=== PATIENT | female | born 1995 | race Two or more races ===

== ENCOUNTER 2022-10-03 12:53 | Outpatient (CLI) | payer OTHER, SELFPAY ==
--- NOTE | 2022-10-03 13:00 | CRLHL7_ITS ---
For Patients: As a result of the Century Cures Act, medical imaging exams and procedure reports are released immediately into your electronic medical record. You may view this report before your referring provider. If you have questions, please contact your health care provider. INDICATION: Evaluate anatomy. COMPARISON: none TECHNIQUE: Real time serna scale imaging of the fetus was performed as well as color Doppler analysis of the umbilical vessels. FINDINGS: Sonographic imaging demonstrates a single living intrauterine gestation. Fetus demonstrates a regular cardiac rate of 145 beats per minute. Fetus has a vertex position. The placenta lies posteriorly without evidence of placenta previa. The edge of the placenta is located 5.2 cm from the edge of the internal cervical os. Amniotic fluid volume appears normal. Single deepest vertical pocket: 4 point cm. The cervix is closed and measures 3.1 cm in length. The composite ultrasound gestational age is calculated at 22 weeks 1 day with an estimated sonographic due date of 02/05/2023. The estimated weight is 478 grams which lies at the 86th %. The following biometric measurements were obtained: Biparietal diameter: 5.1 cm/21 weeks 3 days 54th% Head circumference: 19.0 cm/21 weeks 2 days 39th% Abdominal circumference: 17.4 cm/22 weeks 3 days 77th% Femur length: 3.8 cm/22 weeks 1 day 71st% The HC/AC ratio measures: 1.09 range (1.05-1.23) On anatomic survey, there is a normal appearance of the cerebral ventricles, cavum septi pellucidi, cisterna magna and cerebellum. The nose, lips, and facial profile appear normal. The cervical, thoracic and lumbar spine are well visualized and appear normal. There is a normal four-chamber heart view and the left and right ventricular outflow tracts appear normal. The diaphragm and stomach appear normal. The kidneys and bladder also appear normal. There is a normal three-vessel cord and cord insertion site. The four extremities appear normal. IMPRESSION: Normal OB ultrasound exam with concordance of clinical and sonographic dating. No intrinsic abnormalities noted on anatomic survey. Dictated by Praneeth Miller MD @ 10/04/2022 12:23:35 PM (Electronically Signed)
== END 2022-10-03 12:54 | disposition home or self-care (01) ==
LOC: US 12:53
PROVIDERS: PCP Physician Assistant; Visit Provider Registered Nurse
DX: Z34.92 Encounter for supervision of normal pregnancy, unspecified, second trimester (principal); Z3A.22 22 weeks gestation of pregnancy
CPT/HCPCS: 76805

== ENCOUNTER 2022-10-25 11:32 | Outpatient (CLI) | payer OTHER, SELFPAY ==
[2022-10-25 19:00] LABS: Chlamydia DNA Amplified* NOT DETECTED (No Detected); GC DNA Amplified* NOT DETECTED (No Detected)
== END 2022-10-25 11:33 | disposition home or self-care (01) ==
LOC: NFLDREF 11:32
PROVIDERS: PCP Physician Assistant; Visit Provider Obstetrics & Gynecology
DX: Z34.92 Encounter for supervision of normal pregnancy, unspecified, second trimester (principal); Z3A.24 24 weeks gestation of pregnancy
CPT/HCPCS: 0353U; 87491; 87591

== ENCOUNTER 2022-11-22 11:05 | Outpatient (CLI) | payer OTHER, SELFPAY | END 2022-11-22 11:06 | disposition home or self-care (01) | LOC: NFLDREF 11-24 09:16 | PROVIDERS: PCP Physician Assistant; Referring Provider Physician Assistant; Visit Provider Obstetrics & Gynecology | DX: Z34.90 Encounter for supervision of normal pregnancy, unspecified, unspecified trimester (principal) | CPT/HCPCS: 86592 ==

== ENCOUNTER 2023-01-17 11:05 | Outpatient (CLI) | payer OTHER, SELFPAY | END 2023-01-17 11:06 | disposition home or self-care (01) | PROVIDERS: PCP Physician Assistant; Referring Provider Physician Assistant; Visit Provider Obstetrics & Gynecology | DX: Z34.93 Encounter for supervision of normal pregnancy, unspecified, third trimester (principal); Z3A.36 36 weeks gestation of pregnancy | CPT/HCPCS: 87081; 87653 ==

== ENCOUNTER 2023-02-03 14:53 | Outpatient (CLI) | payer OTHER, SELFPAY ==
[2023-02-03 15:04] VITALS: PULSE 69; O2SAT 98
[2023-02-03 15:05] VITALS: TEMP 36.8
[2023-02-03 15:06] VITALS: BP 107/57; PULSE 73
--- NOTE | 2023-02-03 16:26 | PC.OBNST ---
NST Note NST Note Start: 02/03/23 15:15 Freq: ONCE Status: Active Protocol: Document 02/03/23 16:24 MOSQUE (Rec: 02/03/23 16:25 MOSQUE [id number]) NST Note 4 Para (# of births) 1 EDC 02/11/23 Gestational Age In Weeks & Days 38 Weeks & 6 Days Patient Presented with Complaint(s) of Decreased movement Reactive Yes Appropriate for Gestational Age Yes ALONDRA Esteves Date 02/03/23 Reactive Yes Appropriate for Gestational Age Yes ALONDRA Gallardo Date 02/03/23 OB NST charge Yes Complete NST Note via Write Note Yes The provider's electronic signature indicates the NST is reactive/appropriate for gestational age. *Note to provider: If an addendum is required, open the patient's chart and click on the note under the Nurse/Allied Health tab.
== END 2023-02-03 16:00 | disposition home or self-care (01) ==
LOC: OB OUT 14:53 → OB 14:54
PROVIDERS: PCP Physician Assistant; Visit Provider Obstetrics & Gynecology
DX: O36.8130 Decreased fetal movements, third trimester, not applicable or unspecified (principal); Z3A.38 38 weeks gestation of pregnancy
CPT/HCPCS: 59025; 99213

== ENCOUNTER 2023-02-15 07:15 | Inpatient (IN) | payer OTHER, SELFPAY ==
[2023-02-15] VITALS (102 sets, daily range): BP systolic 92–179; BP diastolic 53–123; PULSE 61–142; RESP 16–18; TEMP 36.6–39.2; O2SAT 91–100; BMI 31.4
--- NOTE | 2023-02-15 08:38 | P.LDBA_ITS ---
Subjective History of Present Illness Time Seen by Provider: 08:10 Date Seen: 02/15/23 Narrative: HPI: Monica is a 28-year-old 4 para 1021 at 40 and 4/7weeks gestation being admitted for elective induction of labor. Her admission history and physical was completed by Nisha Jeffrey MD on 01/24/2023. Her course has been uncomplicated. Her membranes are not ruptured. She reports sporadic contractions. The baby has has been moving normally. OB PROBLEM LIST: G 4 P 1021 FOB: Chase (his first child). Son: Neftali (sp?). Baby: Girl! 1. Transfer of care at 20 weeks. Awaiting previous delivery note from Gena. Possible h/o elevated BP following delivery. * ASA if h/o PP HTN. 2. H/o depression and PP depression. Seeing therapist monthly. Not taking meds. Feels she is doing well. 3. Rubella non immune. Rec. PP vaccine. 4. GBS+ - ampicillin for prophylaxis Flu: Patient believes she completed this COVID: Completed, not boosted. Recommended booster ED visit 06-29-22 d/t vaginal bleeding with clots and low pelvic pain at 7w4d: US: single IUP. FHR 147bpm. ED visit 08-07-22 d/t vaginal bleeding at 13w: single live IUP. Rh positive ED visit 08-16 d/t vaginal bleeding at 14w3d: viable with FHR 162bpm. Bacteruria. 08/07/2021 Blood type A positive Antibody screen negative Rubella 0.4 nonimmune RPR nonreactive HBsAg negative HIV negative Urine culture: 07/14/2022 with E coli, 08/16/2022 Streptococcus agalactiae 1000- 17982 CFU per mil, susceptibilities not performed Chlamydia and gonorrhea 10/25/22 neg/neg Post- Varicella [] Pap smear06/14/2020: NIL, negative HPV 07/14/2022 Platelets 255 Hepatitis C negative 08/16/2022 Hemoglobin 13.3 06/26/2022 obstetric ultrasound: Single, viable, intrauterine gestation with an KUSHAL of 02/07/2023. heart rate 175 beats per minute. TDAP- 12/06/22 OBJECTIVE: GENERAL: Pleasant, well groomed woman in no acute distress. VITAL SIGNS: Per electronic medical record: They are normal. HEART: Regular rate and rhythm without gallop, rub or murmur. CHEST: Clear to auscultation bilaterally. ABDOMEN: Gravid, nontender. EFM: Baseline 120-130, accelerations: Present, decelerations: Absent, moderate variability, reactive. Category 1 TOCO: Q 2-5 minutes, the patient is not feeling them. SVE: Deferred until AROM EXTREMITIES: No edema, cyanosis, clubbing or pain. ASSESSMENT: 28-year-old 4 para 1021 at 40 and 4/7 weeks gestation admitted for elective induction of labor. PLAN: 1. Start Pitocin per induction protocol 2. AROM2-4 hours after start of 1st ampicillin does for GBS positive status 3. GBS positive 4. Planning epidural for labor analgesia 5. Rh positive OB Exam Physical Exam Vital signs: Temp Pulse Resp BP Pulse Ox 98.8 F 71 16 114/75 98 02/15/23 07:42 02/15/23 07:42 02/15/23 07:42 02/15/23 07:42 02/15/23 07:53
[2023-02-15] MEDS: LACTATED RINGERS 1000 ML 1,000 ML 125 ML IV ×2 (08:57→16:23)
[2023-02-15] MEDS: AMPICILLIN 2 GM in 0.9 % SODIUM CHLORIDE Mini-bag 100 ML IVPB (08:58)
[2023-02-15] MEDS: OXYTOCIN 30 unit/500 ML in NS 30 UNIT/500 ML BAG IVPB (08:59)
--- NOTE | 2023-02-15 13:01 | P.OBPN_ITS ---
Subjective Time Seen by Provider: 12:45 Date Seen: 02/15/23 Narrative: Subjective: Patient states the contractions are getting stronger but not unmanageable. Pitocin: 6 milliunits/minute. Verbal consent obtained to perform AROM Vital signs: Per electronic medical record. EFM: [id number], + accelerations, 1 early deceleration after AROM, Moderate variability, reactive. Category to. [place]: Contractions every 2-5 minutes. SVE: 2 cm/80 %/-1. AROM: Small amount of clear fluid. Assessment: 28-year-old 4 para 1021 at 40 weeks 4 days gestation undergoing induction of labor. Plan: 1. Continue Pitocin per labor induction protocol. 2. Planning epidural for labor analgesia Objective Vital Signs: Last Vital Signs Temp 99.0 F 02/15/23 10:24 Pulse 85 02/15/23 11:46 Resp 16 02/15/23 10:24 BP 104/59 L 02/15/23 11:46 Pulse Ox 98 02/15/23 07:53
[2023-02-15] MEDS: AMPICILLIN 1 GM in 0.9 % SODIUM CHLORIDE Mini-bag 100 ML IVPB ×2 (13:05→17:15)
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
[2023-02-15] MEDS: ROPIVACAINE 0.2% 100 ml 100 ML 12 MG EPIDURAL (13:50)
[2023-02-15] MEDS: miSOPROStoL 800 MCG/4 TABLET PR (21:07)
[2023-02-15] MEDS: METHYLERGONOVINE MALEATE 0.2 MG/ML INJ IM (21:09)
[2023-02-15] MEDS: TRANEXAMIC ACID 100 MG/ML INJ 1000 MG IV (21:13)
[2023-02-15] MEDS: ONDANSETRON 2 MG/ML inj 4 MG IV (21:15)
[2023-02-15] MEDS: CEFAZOLIN 2 GM INJ IVP (21:32)
--- NOTE | 2023-02-15 21:43 | W.PM.VAGDEL1 ---
Procedure Delivery date: 02/15/23 Procedure Done: Global Procedure Details: Monica is a 21 seconds year-old G 4 P 1021 now to admitted on 02/15/2023 at 7:30 a.m. at 40 Weeks, 4 Days gestation for elective induction of labor. AROM occurred at 12:40 p.m. on 02/15/2023 with small amount of clear fluid fluid. Labor Analgesia: Epidural Pitocin: Yes Labor onset: 02/15/2023 at 1:40 p.m.. Complete: 02/15/2023 at 8:24 p.m.. Pushin02/15/2023 at 8:30 p.m. heart tones during second stage were: Category 2, reassuring with variable and early decelerations with contractions, moderate variability between contractions. At 8:50 p.m. a viable female infant delivered in vertex direct OA presentation over first-degree bilateral periurethral lacerations via spontaneous vaginal delivery. The infant was placed on maternal abdomen. Cord was clamped and cut after a 60+ second delay. Nose and mouth were bulb suctioned. weight pending. 8 at 1 minute and 8 at 5 minutes. Shoulder dystocia: No. Nuchal cord: Yes: Single nuchal cord easily reduced at the perineum prior to delivery of the 's shoulders. Placenta delivered spontaneously and complete at 9:03 p.m. with a 3 vessel cord. Laceration(s): Bilateral first-degree periurethral. Repaired using 4-0 Vicryl suture in a running manner. Blood loss: 325 mL. Blood loss measurement type: Quantitative Sponge and needles counts are correct. Specimen: None was stable after delivery. After delivery there was noted to be lower uterine segment atony treated with bimanual uterine massage, 30 units Pitocin in 500 mL IV fluid wide open, 800 mg Cytotec [place], Methergine 0.2 mg IM x1, TXA 1 g IV x1. She complained of feeling very cold and had a temperature orally of 100.6? F. She received 2 g IV Ancef x1 and 1000 mg Tylenol p.o.. The automatic blood pressure cuff was not accurately measuring the patient's blood pressure due to the patient shaking post delivery. Manual blood pressures were taken and were consistent with severe range preeclampsia x3. Labetalol per protocol for hypertension treatment and magnesium 4 g IV load, 2 g IV/hour were ordered. Serum preeclampsia labs were ordered stat: CBC, AST, ALT, creatinine, BUN, INR, PTT and fibrinogen. Another set of labs were ordered for tomorrow morning at 5:00 a.m.: CBC, AST, ALT, creatinine, BUN. Repeat temperature 2 hrs after delivery: 100.1? F. The patient declined taking Tylenol so her temperature decreased without medication. Infant's name: Pending The patient is planning on breast feeding. Events: Pre-Eclampsia (Severe: Immediately by BP criteria.) Intrapartal Events: Labor Induction Delivery monitor: external FHT and internal uterine Route of delivery: Laceration description: Periurethral - 1st Degree Delivery repair: Vicryl Estimated blood loss (mL): 325 Anesthesia type: Epidural
[2023-02-15] MEDS: LABETALOL HCL 5 MG/ML inj IVP (21:50)
[2023-02-15] MEDS: MAGNESIUM IV 4 GM/100 ML PIGGYBACK IVPB (21:54)
[2023-02-15] MEDS: ACETAMINOPHEN 500 MG TABLET 1000 MG PO (22:03)
[2023-02-15 22:05] LABS: Creatinine* 0.5 mg/dL (0.5-1.5); Est. Creatinine Clearance* 127.53; Estimated Glomerular Filt Rate 132 ml/min; INR 0.94 (0.91-1.10); Prothrombin Time 13.2 Seconds
[2023-02-15 22:06] LABS: Alanine Aminotransferase* 14 U/L (4-35); Aspartate Amino Transferase* 22 U/L (12-35); Blood Urea Nitrogen* 7 mg/dL (5-24); Hematocrit 38.1 % (33.0-51.0); Hemoglobin* 12.7 gm/dL (12.0-16.0); Mean Corpuscular HGB Conc 33 gm/dL (32-36); Mean Corpuscular Hemoglobin 29 pg (26-34); Mean Corpuscular Volume 86 fL (80-100); Partial Thromboplastin Time* 28 Seconds (23-33); Platelet Count* 243 K/uL (140-440); Red Blood Count 4.43 m/uL (4.00-5.20); Slide Review Reflex No; White Blood Count* 15.35 K/uL (4.50-11.00)
[2023-02-15 22:07] LABS: Fibrinogen* 484 mg/dL (200-450)
[2023-02-15] MEDS: PIPERACILLIN/TAZOBACTAM 3.375 GM in 0.9 % SODIUM CHLORIDE Mini-bag 100 ML IVPB (22:41)
[2023-02-15] MEDS: LACTATED RINGERS 1000 ML 1,000 ML 50 ML IV (22:45)
[2023-02-16] VITALS (15 sets, daily range): BP systolic 86–118; BP diastolic 51–76; PULSE 62–88; RESP 16–18; TEMP 36.6–38.8; O2SAT 97–99
[2023-02-16 00:01] LABS: Creatinine Urine 63.5 mg/dL; Total Protein Urine 29 mg/dL
[2023-02-16] MEDS: PIPERACILLIN/TAZOBACTAM 3.375 GM in 0.9 % SODIUM CHLORIDE Mini-bag 100 ML IVPB ×4 (04:24→22:44)
[2023-02-16] MEDS: IBUPROFEN 600 MG TABLET PO ×3 (04:30→22:45)
[2023-02-16 05:15] LABS: Basophils Percent Auto 0.1 % (0.0-3.0); Eosinophils Percent Auto 0.1 % (0.0-7.0); Hematocrit 32.7 % (33.0-51.0); Hemoglobin* 11.1 gm/dL (12.0-16.0); Immature Granulocytes Pct Auto 0.2 %; Lymphocytes Percent Auto 10.1 % (20-44); Mean Corpuscular HGB Conc 34 gm/dL (32-36); Mean Corpuscular Hemoglobin 29 pg (26-34); Mean Corpuscular Volume 85 fL (80-100); Monocytes Percent Auto 4.9 % (0.0-11.0); Neutrophils Percent Auto 84.6 % (42.0-72.0); Platelet Count* 208 K/uL (140-440); RDW Coefficient of Variation % 13.8 % (11.5-15.5); Red Blood Count 3.87 m/uL (4.00-5.20); White Blood Count* 16.85 K/uL (4.50-11.00)
[2023-02-16 05:18] LABS: Slide Review Reflex No
[2023-02-16 05:30] LABS: Alanine Aminotransferase* 13 U/L (4-35); Aspartate Amino Transferase* 22 U/L (12-35); Blood Urea Nitrogen* 3 mg/dL (5-24); Creatinine* 0.4 mg/dL (0.5-1.5); Est. Creatinine Clearance* 159.42; Estimated Glomerular Filt Rate 139 ml/min
--- NOTE | 2023-02-16 07:52 | P.OBPN_ITS ---
OB - PN:Subj Subjective Time Seen by Provider: 07:30 Date Seen: 02/16/23 Narrative: Overnight patient had complains of feeling unwell, chills, and headache but has improved since her fever broke. Her pain is well controlled on oral pain medications. She is tolerating a regular diet. She has passed flatus. She is ambulating without difficulty. Lochia is scant. Urine output adequate. Patient denies chest pain, SOB, n/v, RUQ pain, vision changes, dizziness. OB - PN: Obj Exam Physical Exam: Vital signs: Temp Pulse Resp BP Pulse Ox O2 Del Method 98.1 F 62 16 97/62 98 Room Air 02/16/23 07:15 02/16/23 07:15 02/16/23 07:15 02/16/23 07:15 02/16/23 07:15 02/16/23 07:15 Narrative: Physical exam: General: No acute distress Psych: Alert and oriented x3, full affect HEENT: Normocephalic, atraumatic Heart: Regular rate and rhythm, no murmur rub or gallop Lungs: Clear to auscultation bilaterally Abdomen: Normoactive bowel sounds, soft, no tenderness, rebound, or guarding. Uterus firm at 2 cm below umbilicus. No fundal tenderness Skin: No lesions or rashes Lower extremities: No edema or erythema Pelvic exam: Scant lochia on pad OB - PN: Obj Data Labs Labs: Laboratory Results - last 24 hr 02/15/23 02/15/23 02/16/23 21:45 23:46 05:05 WBC 15.35 H 16.85 H RBC 4.43 3.87 L Hgb 12.7 11.1 L Hct 38.1 32.7 L MCV 86 85 MCH 29 29 MCHC 33 34 RDW Coeff of Kadeem 13.8 Plt Count 243 208 Neut % (Auto) 84.6 H Lymph % (Auto) 10.1 L [place] % (Auto) 4.9 Eos % (Auto) 0.1 Baso % (Auto) 0.1 Neut # (Auto) 14.30 H Lymph # (Auto) 1.70 [place] # (Auto) 0.80 Eos # (Auto) 0.00 Baso # (Auto) 0.00 Abs Immat Gran (auto) 0.00 Imm/Tot Granulo (auto) 0.2 INR 0.94 APTT 28 Fibrinogen 484 H BUN 7 3 L Creatinine 0.5 0.4 L Estimated Creat Clear 127.53 159.42 Estimated GFR 132 139 AST 22 22 ALT 14 13 Urine Creatinine 63.5 Protein/Creatinin Ratio 0.40 H Urine Total Protein 29 OB - PN: A/P Delivery Assessment and Plan (1) (normal spontaneous vaginal delivery): Status: Acute Assessment and Plan: - Complicated by lower uterine segment atony treated with bimanual massage, 30 u of Pitocin, 800 mcg misoprostol [place], Methergine 0.2 mg IM x1, TXA 1 g IV x1 - QBL 325 cc - Hgb: 12.7 --> 11.1 - VSS (2) Severe preeclampsia: Problem details: By BP criteria. Immediately Status: Acute Assessment and Plan: Pre-Eclampsia with severe feature ? Based on severe ranging blood pressures requiring IV antihypertensive im mediately ? BPs overnight: 90-120s/50-70s ? Symptoms: reports headaches that's improved with Tylenol. Denies visual disturbances, shortness of breath or abdominal pain ? Magnesium: on Magnesium for seizure ppx. Will continue for 24 hours after diagnoses ? IV/PO antihypertensives: currently unindicated ? Pre-eclampsia labs on 02/16/2023: Hgb 11.1 Plt 208 Cr 0.4 ALT 13 AST 22 ? UOP: 2.18 mL/kg/hr (3) Chorioamnionitis: Status: Acute Assessment and Plan: - Patient with chills and fevers - Tmax 102.6, Tlast 100.8 @ 0100 - Other VSS - She received 2g of Ancef when she initially fevered and subsequently was placed on zosyn after her fever kept rising - Discussed with patient that we care treating her for an intrauterine infection. High fever could also be attributed to medication side effect such as the misoprostol that she received. However, it's safest for her get adequate and appropriate antibiotics. - Plan for Abx for 24 hours afebrile
[2023-02-16] MEDS: MEASLES,MUMPS,RUBELLA VACC/PF 1 DOSE INJ 1 EACH SUBCUT (10:20)
[2023-02-16] MEDS: LACTATED RINGERS 1000 ML 1,000 ML 75 ML IV (11:40)
[2023-02-16] MEDS: ACETAMINOPHEN 500 MG TABLET 1000 MG PO (16:08)
[2023-02-17 03:17] VITALS: BP 109/67; PULSE 67; RESP 16; TEMP 36.8; O2SAT 98
[2023-02-17 06:15] VITALS: BP 125/80; PULSE 65; RESP 16; TEMP 37.1; O2SAT 98
[2023-02-17] MEDS: IBUPROFEN 600 MG TABLET PO (06:15)
[2023-02-17 07:08] LABS: Hematocrit 27.2 % (33.0-51.0); Mean Corpuscular HGB Conc 33 gm/dL (32-36); Mean Corpuscular Hemoglobin 29 pg (26-34); Mean Corpuscular Volume 87 fL (80-100); Platelet Count* 190 K/uL (140-440); Red Blood Count 3.13 m/uL (4.00-5.20); Slide Review Reflex No; White Blood Count* 7.57 K/uL (4.50-11.00)
[2023-02-17 07:22] LABS: Creatinine* 0.5 mg/dL (0.5-1.5); Est. Creatinine Clearance* 127.53; Estimated Glomerular Filt Rate 132 ml/min
[2023-02-17 07:23] LABS: Alanine Aminotransferase* 11 U/L (4-35); Aspartate Amino Transferase* 18 U/L (12-35); Blood Urea Nitrogen* 7 mg/dL (5-24)
[2023-02-17 09:20] VITALS: BP 116/83; PULSE 65; RESP 16; TEMP 36.8; O2SAT 96
[2023-02-17] MEDS: ACETAMINOPHEN 500 MG TABLET 1000 MG PO (09:41)
--- NOTE | 2023-02-17 09:48 | P.DS_ITS ---
DS: Providers Provider Time Seen by Provider: 09:30 Date Seen: 02/17/23 Date of admission: 02/15/23 07:15 Primary care physician: Brian Markham PA-C Admitting Clinician: Mary Ellen Rolon MD Attending Physician on discharge: Shanon Herrera MD Date of Discharge: 02/17/23 DS: Diagnosis Discharge Diagnosis (1) Chorioamnionitis: Status: Acute (2) (normal spontaneous vaginal delivery): Status: Acute (3) Severe preeclampsia: Status: Acute Problem details: By BP criteria. Immediately (4) GERD (gastroesophageal reflux disease): Status: Acute Exam Narrative: Exam Narrative: VITAL SIGNS: As noted above. GENERAL APPEARANCE: Alert, cooperative female in no acute distress. MOOD & AFFECT: Normal. CHEST: CTAX2, RRR of heart ABDOMEN: Soft, non-distended and nontender. Well contracted uterus, no significant uterine tenderness. : Normal lochia, no malodorous discharge. EXTREMITIES: Nonedematous. Well perfused. Nontender. Const: Vital Signs, click to edit/add: Vital Signs - 24 hr 02/16/23 11:29 02/16/23 15:47 02/16/23 20:11 Temperature 98.4 F 98 F 98.4 F Pulse Rate [Pulse Oximeter] 65 66 69 Respiratory Rate 16 16 18 Blood Pressure [Le ft Arm] 108/64 102/62 116/70 Pulse Oximetry 97 98 98 Oxygen Delivery Me thod Room Air Room Air Room Air 02/16/23 22:46 02/17/23 03:17 02/17/23 06:15 Temperature 98.7 F 98.3 F 98.7 F Pulse Rate [Pulse Oximeter] 69 67 65 Respiratory Rate 16 16 16 Blood Pressure [Le ft Arm] 116/74 109/67 125/80 Pulse Oximetry 99 98 98 Oxygen Delivery Me thod Room Air Room Air Room Air 02/17/23 09:20 Temperature 98.3 F Pulse Rate [Pulse Oximeter] 65 Respiratory Rate 16 Blood Pressure [Le ft Arm] 116/83 Pulse Oximetry 96 Oxygen Delivery Me thod Room Air OB - DS: Summary Hospital Course Hospital Course: The patient is a 28 year old G 2 P 2002 at 40 4/7 weeks gestation that was admitted to the Center on 02/15/23 for elective IOL. She had an complicated vaginal delivery. She delivered a viable female . She is breast feeding. Delivery complicated by hemorrhage and the need for multiple uterotonics. Patient was also diagnosed with preeclampsia with severe features due to persistently severe range blood pressures needing IV antihypertensive medication. Patient received 24 hours of magnesium sulfate infusion for seizure prophylaxis. 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 also complicated by endometritis, treated with IV Zosyn, she has now been more than 24 hours afebrile. Labs repeated this morning were found consistent with anemia, but otherwise normal. Patient has requested discharge home today. Peripartum Data Infant delivery method: Vaginal Laceration description: Periurethral - 1st Degree complications: pelvic infection, uterine atony and other (Preeclampsia with severe features) [place] Infant Gender: Female Discharge Plan: Home Status at Discharge Functional status at discharge: independent ambulation Overall status at discharge: patient is progressing back to baseline Time Spent with Patient Time attestation: Total time spent providing and/or coordinating discharge services: Time spent: Less than 30 minutes Discharge Plan Discharge Disposition: Home, Self-Care Date of Admission: 02/15/23 07:15 Attending Provider on Discharge: Shanon Herrera Consulting Providers: Albania Cohen Primary Care Provider: Brian Markham Condition: Stable Anticipated Discharge Date/Time: 02/17/23 18:00 Discharge Medications: New ibuprofen 600 mg Tablet 600 mg PO Q6H PRNQty: 30 0RF ferrous sulfate 325 mg (65 mg iron) tablet 325 mg PO DAILY Qty: 30 0RF Discharge Orders: Discharge Order (Routine); Ordered 02/17/23 Ordered By: Shanon Herrera Patient Education: Preeclampsia and Eclampsia After Delivery (GEN), OB Over the Counter Medication Information, OB Vaginal/Bottle Feeding Additional Instructions: Monitor blood pressures at least twice a day, notify clinic if there are elevated blood pressures more than 140 systolic, 90 diastolics. Notify clinic if there is headaches that do not go away with Tylenol, visual changes or pain in the upper abdomen. Follow up in clinic on Sunday02/19/23 for a blood pressure check. A Clinic nurse will call you on Sunday to schedule an appt. Then, follow up in clinic for usual follow up in 2-6 weeks. Discharge instructions were reviewed with the patient including signs and symptoms of infection and home going medications Nothing vaginally for 6 weeks: no tampons or intercourse Do not drive while taking narcotic pain medication(s) Off Work or School for 8 weeks Symptoms to report to doctor: * Bleeding that saturates more than one pad per hour * Passing clots larger than the size of a golf ball * Pain not relieved by prescribed medication * Fever above 100.4 degrees Fahrenheit * A foul vaginal odor * Difficulty in emotions, mood, and functions * Thoughts of hurting yourself and/or * Painful, reddened area in your breast * Any drainage, redness, or tenderness in your IV/epidural site * Severe headache that doesn't improve after taking medications * Changes in vision, including temporary loss of vision, blurred vision, and/or light sensitivity * Upper abdominal pain (usually under ribs on the right side) * Decrease in urination or painful, frequent urinating * Chest pain * Shortness of breath * Tenderness or pain with redness and/swelling in the calf(s) of your leg Optional 2-week visit: discuss infant feeding concerns, review control options and screen for anxiety/depression. 6-week visit for an annual exam. consultation services are available to all mothers and babies for the first year after delivery.? To make an appointment, please call [phone]. Activity Level: Activity as Tolerated Activity Detail: Nothing vaginally for 6 weeks. Discharge Diet: Regular Follow Up Appointments: Brian Markham PA-C [Primary Care Provider] - Forms: [employer] Info Instructions
[2023-02-17 12:03] VITALS: BP 127/81; PULSE 68; RESP 16; TEMP 36.8; O2SAT 98
[2023-02-17 16:09] VITALS: BP 121/78; PULSE 64; RESP 16; TEMP 36.9; O2SAT 99
[2023-02-17 19:31] VITALS: BP 122/81; PULSE 64; RESP 18; TEMP 36.9; O2SAT 99
== END 2023-02-17 19:40 | disposition home or self-care (01) | DRG 560 ==
PROVIDERS: Obstetrics & Gynecology; Admitting Provider Obstetrics & Gynecology; PCP Physician Assistant; Visit Provider Obstetrics & Gynecology
DX: O99.824 Streptococcus B carrier state complicating childbirth (principal); O14.15 Severe pre-eclampsia, complicating the puerperium; O86.12 Endometritis following delivery; O72.1 Other immediate postpartum hemorrhage; O70.0 First degree perineal laceration during delivery; K21.9 Gastro-esophageal reflux disease without esophagitis; O90.81 Anemia of the puerperium; D62 Acute posthemorrhagic anemia; Z3A.40 40 weeks gestation of pregnancy; Z37.0 Single live birth
CPT/HCPCS: 01967; 36415; 59200; 82565; 82570; 84156; 84450; 84460; 84520; 85025; 85027; 85384; 85610; 85730; A9270; J0290; J0690; J2210; J2405; J2543; J2795; J3475; J7120; S0020

== ENCOUNTER 2023-03-02 15:02 | Outpatient (CLI) | payer OTHER, SELFPAY | END 2023-03-02 15:03 | disposition home or self-care (01) | LOC: NFLDREF 15:03 | PROVIDERS: PCP Physician Assistant; Visit Provider Registered Nurse | DX: Z39.2 Encounter for routine postpartum follow-up (principal) | CPT/HCPCS: 86787 ==

== ENCOUNTER 2024-04-21 09:01 | Outpatient (CLI) | payer MEDICAID, SELFPAY ==
--- OUTSIDE RECORDS SUMMARY | 2024-04-21 09:09 | XMS_ITS | Encounter Summary ---
Author Organization [facility] Address [address] [place] [address] Care Team Providers Care Track Oiler Name Role Phone Brian Markham P.A.-C. Primary Care Provider Encounter Details Date Type Department Care Team (Latest Contact Info) Description 01/23/2024 3:33 PM CDT - 01/23/2024 11:59 PM CDT Hospital Encounter Department of Laboratory Medicine in [place], [place] [address] [place] [address] Brian Markham P.A.-C. [address] [place] [phone] Screening For Venereal Disease Discharge Disposition: Home or Self Care Social History Tobacco Use Types Packs/Day Years Used Date Smoking Tobacco: Former Cigarettes Smokeless Tobacco: Never Alcohol Use Standard Drinks/Week Comments Not Currently 3 (1 standard drink = 0.6 oz pur e alcohol) drinks 3 days week [facility] Utilities Answer Date Recorded In the past 12 months has [employer], oil, or water [employer] threatened to shut off services in your home? No 11/15/2023 Humiliation, Afraid, Rape, and Kick questionnair e Answer Date Recorded Within the last year, have y ou been afraid of your partner or ex-partner? No 06/03/2022 Within the last year, have y ou been humiliated or emotionally abused in other ways by your partner or ex-partner? No Within the last year, have y ou been kicked, hit, slapped, or otherwise physically hurt by your partner or ex-partner? No 06/03/2022 Within the last year, have y ou been raped or forced to have any kind of sexual activity by your partner or ex-partner? No 06/03/2022 Social Connection and Isolat ion Panel [NHANES] Answer Date Recorded In a typical week, how many times do you talk on the phone with family, friends, or neighbors? More than three times a week 06/03/2022 How often do you get togethe r with friends or relatives? Once a week 06/03/2022 How often do you attend chur Diaferon or faith services? Never 06/03/2022 Do you belong to any clubs o r organizations such as samaritan groups, unions, fraternal or athletic groups, or school groups? No 06/03/2022 How often do you attend meet ings of the clubs or organizations you belong to? Never 06/03/2022 Are you , , di vorced, , never , or living with a partner? Never 06/03/2022 AUDIT-C Answer Date Recorded Q1: How often do you have a drink containing alc ohol? 2-4 times a month 06/03/2022 Q2: How many drinks containi ng alcohol do you have on a typical day when you are drinking? 3 or 4 06/03/2022 Q3: How often do you have si x or more drinks on one occasion? Never 06/03/2022 Overall Financial Resource Strain (CARDIA) Answe r Date Recorded How hard is it for you to pa y for the very basics like food, housing, medical care, and heating? Not very hard 06/03/2022 PHQ-2 Answer Date Recorded PHQ-2 Score 2 01/23/2024 [facility] - Occupational Stress Questionnaire Answer Date Recorded Do you feel stress - tense, restless, nervous, or anxious, or unable to sleep at night because your mind is troubled all the time - these days? Only a little 06/03/2022 Exercise Vital Sign Answer Date Recorde d On average, how many days pe r week do you engage in moderate to strenuous exercise (like a brisk walk)? 7 days 11/15/2023 On average, how many minutes do you engage in exercise at this level? 60 min 11/15/2023 Hunger Vital Sign Answer Date Recorded Within the past 12 months, y ou worried that your food would run out before you got the money to buy more. Never true 11/15/19 24 Within the past 12 months, t he food you bought just didn't last and you didn't have money to get more. Never true 11/15/2023 PRAPARE - Transportation Answer Date Re corded In the past 12 months, has l ack of transportation kept you from medical appointments or from getting medications? No 10/22 In the past 12 months, has l ack of transportation kept you from meetings, work, or from getting things needed for daily living? No 11/15/2023 Depression Answer Date Recor ded PHQ-9 Total Score (max 27) 7 01/22 Nutrition Answer Date Recorded On average, how many serving s of fruits and vegetables do you eat per day (serving size is equal to 1 cup or approximately the size of a tennis ball)? 3-5 11/15/2023 Dental Answer Date Recorded Dental: Regular Dentist Yes 06/03/20 Employment Answer Date Recorded Employment status Employed and actively working without restrictions 11/15/2023 Housing Stability Answer Date Recorded What is your living situation today? I have a [facility] place to live 11/15/2023 Education Answer Date Recorded What is the highest level of school you have completed or the highest degree you have received? 12th grade 06/03/2022 Sex and Gender Information Value Date Recorded Sex Assigned at Female 09/27/2017 9:28 AM HEAVY MOBILE EQUIPMENT REPAIRER Gender Identity Female 09/27/2017 9:28 AM HEAVY MOBILE EQUIPMENT REPAIRER Sexual Orientation Straight 09/27/2017 9: 28 AM HEAVY MOBILE EQUIPMENT REPAIRER documented as of this encounter Medications at Time of Discharge Medication Sig Dispensed Refills Start Date End Date naphazo HCl-hpm-ps 80-Zn sulf (Clear Eyes Complete) 0.025-0.2-0.5 % drops Administer 1 drop into both eyes as needed. 3 x per week for dry eyes propranoloL (INDERAL) 40 mg tablet Take 1 tablet (40 mg total) by mouth 3 (three) times a day as needed (anxiety). 30 tablet 11 08/22/2023 08/21/2024 documented as of this encounter Plan of Treatment Not on file documented as of this encounter Procedures Procedure Name Priority Date/Time Associated Diagnosis Comments HIV-1/-2 AG AND AB SCREEN, PLASMA Routine 01/23/2024 3:43 PM CDT Screening For Venereal Disease documented in this encounter Results * HIV-1/-2 Ag and Ab Screen, Plasma (01/23/2024 3:43 PM CDT) HIV Ag/Ab Screen, P Negative Negative 01/25/2024 5:16 AM CDT [facility] Comment: Negative result does not rule out HIV infection. If exposure to HIV infection occurred <14 days ago, contact the laboratory to request addition of HIV-1/HIV-2 RNA detection, Plasma (HIP12). HIV-1 p24 Ag Screen, P Negative Negative 01/25/2024 5:16 AM CDT [facility] Comment: Negative result does not rule out HIV infection. If exposure to HIV infection occurred <14 days ago, contact the laboratory to request addition of HIV-1/HIV-2 RNA detection, Plasma (HIP12). HIV-1 Ab Screen, P Negative Negative 01/25/2024 5:16 AM CDT [facility] Comment: Negative result does not rule out HIV infection. If exposure to HIV infection occurred <14 days ago, contact the laboratory to request addition of HIV-1/HIV-2 RNA detection, Plasma (HIP12). HIV-2 Ab Screen, P Negative Negative 01/25/2024 5:16 AM CDT [facility] Comment: Negative result does not rule out HIV infection. If exposure to HIV infection occurred <14 days ago, contact the laboratory to request addition of HIV-1/HIV-2 RNA detection, Plasma (HIP12). Blood (Blood, Venous) 01/23/2024 3:43 PM CDT 01/24/2024 2:34 PM CDT Brian Markham P.A.-C. LAB MICROBIOLO GY - BLOOD ORDERABLES [facility] [address] [place] [address], [place] [facility] [place] [address] [place] [address] documented in this encounter Visit Diagnoses Diagnosis Screening For Venereal Disease documented in this encounter Additional Health Concerns Assessment Noted Time PHQ-9 Depression Total Score: 7 01/23/20 24 2:47 PM CDT documented as of this encounter Care Teams Track Oiler Relationship Specialty Start Date End Date Brian Markham P.A.-C. PCP - General 01/04/17 documented as of this encounter
--- OUTSIDE RECORDS SUMMARY | 2024-04-21 09:09 | XMS_ITS | Clinical Summary ---
Author Organization [facility] Address [address] [place] [address] Care Team Providers Care Ground Instructor Advanced Name Role Phone Brian Markham P.A.-C. Primary Care Provider Source Comments Patient records contain information from all sites at [facility]. For routine questions regarding patient records, call [phone] during business hours, M-F 8:00 AM - 5:00 PM Central Time. Record requests for emergency care only can be directed to [phone] at any time.[facility] Allergies Active Allergy Reactions Criticality Noted Date Comments Lactulose Other (see comments) 10/19/2016 Medications Medication Sig Dispensed Refills Start Date End Date Status propranoloL (INDERAL) 40 mg tablet Take 1 tablet (40 mg total) by mouth 3 (three) times a day as needed (anxiety). 30 tablet 11 08/22/2023 08/21/2024 Active naphazo HCl-hpm-ps 80-Zn sulf (Clear Eyes Complete) 0.025-0.2-0.5 % drops Administer 1 drop into both eyes as needed. 3 x per week for dry eyes Active Active Problems Problem Noted Date Diagnosed Date Anxiety 08/22/2023 Keratosis Pilaris 10/20/2020 Resolved Problems Problem Noted Date Diagnosed Date Resolved Date Encounter For Supervision Of Normal Unspecified Trimester 08/09/2022 08/22/2023 Overview (08/09/2022): G 4P 1, x1 at term KUSHAL: February 11, 2023 by LMP and FTU FOB: Involved Rubella nonimmune, Rh A positive anatomy scan: OGTT: Hb at 28 weeks: Tdap on: GBS: Next Visit: Issues: 1. low risk Surveillance Contraceptive Subdermal 04/07/2022 04/07/2022 Overview (04/07/2022): Nexplanon inserted 05/11/2021. Obesity Body Mass Index 30-39.9 Adult 10/20/2020 08/22/2023 Depression Major Recurrent Moderate 10/08/2017 08/22/2023 Depressive Disorder 03/20/2017 06/14/20 20 Overview (04/15/2017): Depression\.br\per External Record info - 03/14/2017 Encounters Date Type Department Care Team Description 02/29/2024 10:15 AM CDT Nurse Only Department of [facility], [facility], [address] [phone] Marie Wells, L.P.N. Nurse Visit 01/23/2024 3:33 PM CDT - 01/23/2024 11:59 PM CDT Hospital Encounter Department of Laboratory Medicine [address] [phone] Brian Markham, P.A.-C. Screening For Venereal Disease Discharge Disposition: Home or Self Care 01/23/2024 3:00 PM CDT Office Visit Department of [facility], [facility], [address] [phone] Brian Markham, P.A.-C. General Medical Examination Adult (Primary Dx); Pap Smear Examination; Screening For Venereal Disease; Anxiety from Last 3 Months Immunizations Name Administration Dates Next Due 9vHPV 06/14/2020,08/16/2018,05/29/2018 HepB Adult (HEPLISAV-B) 02/29/2024,01/23/2024 Influenza, Unspecified 05/12/2016 MMR 02/16/2023,07/01/2016 SARS-COV-2 (COVID-19) - PFIZ ER (Discontinued)(12 years or older) 08/05/2021,07/11/2021 Tdap 12/06/2022,,05/12/2016,2008 influenza vaccine quad (FLUZONE/FLUARIX) (6 months and older)(PF) 05/11/2021,06/14/2020,05/21/2019,2015 Social History Tobacco Use Types Packs/Day Years Used Date Smoking Tobacco: Former Cigarettes Smokeless Tobacco: Never Tobacco Cessation:Counseling Given: Not Answered Alcohol Use Standard Drinks/Week Comments Not Currently 3 (1 standard drink = 0.6 oz pur e alcohol) drinks 3 days week [facility] [employer] Answer Date Recorded In the past 12 months has e [employer], gas, oil, or water [employer] threatened to shut off services in your [...] 06/03/2022 How often do you attend chur ch or alevism services? Never 06/03/2022 Do you belong to any clubs o r organizations such as pentecostalism groups, unions, fraternal or athletic groups, or [...] Answer Date Recorded PHQ-2 Score 2 01/23/2024 [facility] - Occupational Stress Questionnaire Answer Date Recorded [...] your living situation today? I have a [facility] place to live 11/15/2023 Education Answer Date Recorded What is the highest level of school you have completed or the highest degree you have received? 12th grade 06/03/2022 Sex and Gender Information Value Date Recorded Sex Assigned at Female 09/27/2017 9:28 AM SOLAR ENERGY SYSTEM INSTALLER Gender Identity Female 09/27/2017 9:28 AM SOLAR ENERGY SYSTEM INSTALLER Sexual Orientation Straight 09/27/2017 9: 28 AM SOLAR ENERGY SYSTEM INSTALLER Last Filed Vital Signs Vital Sign Reading Time Taken Comments Blood Pressure 112/72 01/23/2024 2:40 PM CDT average of 3 Pulse 79 01/23/2024 2:40 PM CDT Temperature 35.9 ??C (96.7 ??F) 01/23/2024 2 :40 PM CDT Respiratory Rate 16 01/23/2024 2:40 PM CDT Oxygen Saturation 99% 11/09/2022 9:3 5 AM CDT Inhaled Oxygen Concentration - - Weight 76 kg (167 lb 8.8 oz) 01/23/2024 2:40 PM CDT Height 158 cm (5' 2.21) 01/23/2024 2:4 0 PM CDT Body Mass Index 30.44 01/23/2024 2:40 PM CDT Plan of Treatment Health Maintenance Due Date Last Done Comments COVID-19 Vaccine ( season) 2024 08/05/2021, 07/11/2021 Influenza Vaccine (#1) 2024 , 06/14/2020, 05/21/2019, Additional history exists Tobacco Cessation counseling 08/22/2024 08/22/2023 Cervical Cancer Screening 01/22/20272023, 06/14/2020, 06/14/2020, Additional history exists DTaP,Tdap,and Td Vaccines (5 - Td or Tdap) 12/06/2032 12/06/2022, 11/21/2021, 05/12/2016, Additional history exists HPV Vaccines Completed 06/14/2020, 07/24, 05/29/2018 Hepatitis C Screening Completed 07/14/2022 Chlamydia and Gonorrhea Screening Discontinued 01/23/2024, 05/29/2018, 06/08/2015, Additional history exists Depression Screening (Annual PHQ-2) Completed 01/23/2024, 01/23/2024 HIV Screening Completed 01/23/2024, 06/23, 11/30/2015, Additional history exists Hepatitis B Vaccines Completed 02/29/2024, 01/23/20 24 Pneumococcal vaccine (0-64 years) Aged Out No longer eligible based on patient's age to complete this topic Medical Devices Explanted Type Area Dispatcher Service Chief Device Identifier Shelf Expiration Date Model / Serial / Lot Subdermal Contraceptive Implant-05/11/20 21 Implanted:Qty: 1 on 05/11/2021 by Ron Myers Jr., M.D. Explanted:Qty: 1 on 04/07/2022 by Deedee Arias, DEBORAH, C.N.P. Subdermal Contraceptive Implant Left: Arm [facility] 10/27/2023 / / [id number] Procedures Procedure Name Priority Date/Time Associated Diagnosis Comments HIV-1/-2 AG AND AB SCREEN, PLASMA Routine 01/23/2024 3:43 PM CDT Screening For Venereal Disease THINPREP SCREEN HPV REFLEX Routine 01/23/2024 3:18 PM CDT Pap Smear Examination CHLAMYDIA/GONORRHOE AE AMPLIFIED RNA Routine 01/23/2024 3:18 PM CDT Screening For Venereal Disease HCV AB SCRN , S Routine 07/14/2022 9:06 AM SOLAR ENERGY SYSTEM INSTALLER Encounter For Supervision Of Other Normal Unspecified Trimester (HCC) from Last 3 Months or Most Recently Relevant to Health Maintenance Results * HIV-1/-2 Ag and Ab Screen, [...] P.A.-C. LAB MICROBIOLO GY - BLOOD ORDERABLES Performing Organization Address [facility] [place]/State/ZIP Co de Phone Number [facility] [address] [place] [address], [place] [address] * ThinPrep Screen HPV Reflex (01/23/2024 3:18 PM CDT) 01/30/2024 4:01 PM CDT [facility] Report electronically signed by ARTI Moncada(ASCP) I verify that I have examined all relevant slides/materials for the specimen(s) and rendered or confirmed the diagnosis. 01/30/2024 4:01 PM CDT [facility] Gross Description Received specimen in a ThinPrep vial. 01/30/2024 4:01 PM CDT [facility] Pap Test Source Cervical/Endocervi krishan 01/30/2024 4:01 PM CDT [facility] Hormone Therapy/Contracep tives None/Not known 01/30/2024 4:01 PM CDT [facility] Interpretation Cervical/Endocervi krishan ??(ThinPrep): Satisfactory for Evaluation Negative for Intraepithelial Lesion or Malignancy Shift in rogelio suggestive of bacterial vaginosis 01/30/2024 4:01 PM CDT [facility] Thin Prep Vial (Cervix/Endocerv ix) 01/23/2024 3:18 PM CDT 01/25/2024 9:41 AM CDT Brian Markham P.A.-C. LAB PAP PATHDX ORDERABLES Performing Organization Address [facility] [place]/[facility] Co de Phone Number [facility] [address] [place] [address], [facility] [address] [place] [address] * Chlamydia / Gonorrhoeae Amplified RNA (01/23/2024 3:18 PM CDT) Source Thin Prep Vial, Cervix/Endoc ervix 01/25/2024 5:59 PM CDT [facility] Chlamydia trachomatis amplified RNA Negative Negative 01/25/2024 5:59 PM CDT [facility] Source Thin Prep Vial, Cervix/Endoc ervix 01/25/2024 5:59 PM CDT [facility] Neisseria gonorrhoeae amplified RNA Negative Negative 01/25/2024 5:59 PM CDT [facility] Thin Prep Vial (Cervix/Endocerv ix) 01/23/2024 3:18 PM CDT 01/25/2024 2:11 PM CDT Brian Markham P.A.-C. LAB MICROBIOLO GY - GENERAL ORDERABLES Performing Organization Address City/[facility] Co de Phone Number [facility] [address] [place] [address], [facility] [address] [place] [address] * Hepatitis C Virus Antibody Screen (07/14/2022 9:06 AM SOLAR ENERGY SYSTEM INSTALLER) HCV Ab Scrn , S Negative Negative 07/15/2022 10:31 AM SOLAR ENERGY SYSTEM INSTALLER [facility] Comment:Gqiswf-eh-doxecr rat io is <1.00. Blood (Blood, Venous) 07/14/2022 9:06 AM SOLAR ENERGY SYSTEM INSTALLER 07/15/2022 7:39 AM SOLAR ENERGY SYSTEM INSTALLER Arnold Mclaughlin M.D. LAB MICROBIOLOGY - B LOOD ORDERABLES [facility] [address] [place] [address] [facility] [address] [place] [address] from Last 3 Months or Most Recently Relevant to Health Maintenance Care Teams Ground Instructor Advanced Relationship Specialty Start Date End Date Brain Markham P.A.-C. PCP - General 01/04/17
--- OUTSIDE RECORDS SUMMARY | 2024-04-21 09:09 | XMS_ITS | Referral Summary ---
Author Organization [facility] Address [address] [place] [address] Care Team Providers Care Network Consultant Name Role Phone Brian Markham-C. Primary Care Provider Source Comments Patient records contain information from all sites at [facility]. For routine questions regarding patient records, call [phone] during business hours, M-F 8:00 AM - 5:00 PM Central Time. Record requests for emergency care only can be directed to [phone] at any time.[facility] Encounters Date Type Department Care Team Description 02/29/2024 10:15 AM CDT Nurse Only Department of Family Medicine, [facility], in [address] [phone] Marie Wells, L.P.N. Nurse Visit 01/23/2024 3:33 PM CDT - 01/23/2024 11:59 PM CDT Hospital Encounter Department of Laboratory Medicine in [address] [phone] Brian Markham, P.A.-C. Screening For Venereal Disease Discharge Disposition: Home or Self Care 01/23/2024 3:00 PM CDT Office Visit Department of Family Medicine, [facility], in [address] [phone] Brian Markham, P.A.-C. General Medical Examination Adult (Primary Dx); Pap Smear Examination; Screening For Venereal Disease; Anxiety from Last 3 Months Allergies Active Allergy Reactions Criticality Noted Date [...] (04/15/2017): Depression\.br\per External Record info - 03/14/2017 Immunizations Name Administration Dates Next Due 9vHPV [...] pur e alcohol) drinks 3 days week [facility] [employer] Answer Date Recorded In the past 12 months has e [employer], gas, oil, or water [employer] threatened to shut off services in your [...] often do you attend chur ch or oriental orthodox services? Never 06/03/2022 Do you belong to any clubs o r organizations such as yarsanism groups, unions, fraternal or athletic groups, or [...] Answer Date Recorded PHQ-2 Score 2 01/23/2024 [facility] - Occupational Stress Questionnaire Answer Date Recorded [...] Sex Assigned at Female 09/27/2017 9:28 AM MARRIAGE THERAPIST Gender Identity Female 09/27/2017 9:28 AM MARRIAGE THERAPIST Sexual Orientation Straight 09/27/2017 9: 28 AM MARRIAGE THERAPIST Last Filed Vital Signs Vital Sign Reading [...] 01/23/2024 2:40 PM CDT Plan of Treatment Not on file Medical Devices Explanted Type Area Ruby Developer Device Identifier Shelf Expiration Date Model / Serial / Lot Subdermal Contraceptive Implant-05/11/20 21 Implanted:Qty: 1 on 05/11/2021 by Ron Myers Jr., M.D. Explanted:Qty: 1 on 04/07/2022 by Deedee Arias, DEBORAH, C.N.P. Subdermal Contraceptive Implant Left: Arm [employer] 10/27/2023 / / [id number] Procedures Procedure Name Priority Date/Time Associated Diagnosis Comments HIV-1/-2 AG AND AB SCREEN, PLASMA Routine 01/23/2024 3:43 PM CDT Screening For Venereal Disease THINPREP SCREEN HPV REFLEX Routine 01/23/2024 3:18 PM CDT Pap Smear Examination CHLAMYDIA/GONORRHOE AE AMPLIFIED RNA Routine 01/23/2024 3:18 PM CDT Screening For Venereal Disease HCV AB SCRN , S Routine 07/14/2022 9:06 AM MARRIAGE THERAPIST Encounter For Supervision Of Other Normal Unspecified [...] GY - BLOOD ORDERABLES Performing Organization Address City/[facility] Co de Phone Number [facility] [address] [place] [address], [place] [facility] [place] [address] [place] [address] * ThinPrep Screen HPV Reflex (01/23/2024 3:18 [...] Brian Markham P.A.-C. LAB PAP PATHDX ORDERABLES [facility] [address] [place] [address], [facility] [address] [facility] [address] [place] [address] * Chlamydia / Gonorrhoeae Amplified RNA (01/23/2024 [...] P.A.-C. LAB MICROBIOLO GY - GENERAL ORDERABLES [facility] [address] [place] [address], [facility] [address] [address] * Hepatitis C Virus Antibody Screen (07/14/2022 9:06 AM MARRIAGE THERAPIST) HCV Ab Scrn , S Negative Negative 07/15/2022 10:31 AM MARRIAGE THERAPIST [facility] Comment:Zcwokz-ns-omtalg rat io is <1.00. Blood (Blood, Venous) 07/14/2022 9:06 AM MARRIAGE THERAPIST 07/15/2022 7:39 AM MARRIAGE THERAPIST Arnold Mclaughlin M.D. LAB MICROBIOLOGY - B LOOD ORDERABLES [facility] [address] [place] [address] [facility] [address] [place] [address] from Last 3 Months or Most Recently Relevant to Health Maintenance Care Teams Network Consultant Relationship Specialty Start Date End Date Brian Markham P.A.-C. PCP - General 01/04/17
--- OUTSIDE RECORDS SUMMARY | 2024-04-21 09:09 | XMS_ITS | Encounter Summary ---
Author Organization [facility] Address [address] [place] [address] Care Team Providers Care Senior Sql Server Dba Name Role Phone Brian MarkhamALina-CLina Primary Care Provider Reason for Visit * Reason Comments Annual Exam Would like to be mayra cked for STD * Outpatient (Routine) - Closed Specialty Diagnoses / Procedures Referred By Conttorsten t Referred To Contact Family Medicine Brian Markham, P.A.-CLina [address] [place] [address] [facility] Region Referral ID Status Reason Start Date Expiration Date Visits Re quested Visits Authorized [id number] Closed 11/27/2023 05/28/2025 1 1 Encounter Details Date Type Department Care Team (Late st Contact Info) Description 01/23/2024 3:00 PM CDT Office Visit Department of Family Medicine, [facility], in [place], [place] [address] [place] [address] Brian Markham P.A.-C. [address] [place] [address] General Medical Examination Adult (Primary Dx); Pap Smear Examination; Screening For Venereal Disease; Anxiety Social History Tobacco Use Types Packs/Day Years Used Date Smoking Tobacco: Former Cigarettes Smokeless Tobacco: Never Tobacco Cessation:Counseling Given: Not Answered Alcohol Use Standard Drinks/Week Comments Not Currently 3 (1 standard drink = 0.6 oz pur e alcohol) drinks 3 days week [facility] Utilities Answer Date Recorded In the past 12 months has th e electric, gas, oil, or water company threatened to shut off services in your [...] often do you attend chur ch or buddhism services? Never 06/03/2022 Do you belong to any clubs o r organizations such as hinduism groups, unions, fraternal or athletic groups, or [...] Answer Date Recorded PHQ-2 Score 2 01/23/2024 [facility] - Occupational Stress Questionnaire Answer Date Recorded [...] Sex Assigned at Female 09/27/2017 9:28 AM MATERIAL EXPEDITER Gender Identity Female 09/27/2017 9:28 AM MATERIAL EXPEDITER Sexual Orientation Straight 09/27/2017 9: 28 AM MATERIAL EXPEDITER documented as of this encounter Last Filed Vital Signs Vital Sign Reading Time Taken Comments Blood Pressure 112/72 01/23/2024 2:40 PM CDT average of 3 Pulse 79 01/23/2024 2:40 PM CDT Temperature 35.9 ??C (96.7 ??F) 01/23/2024 2 :40 PM CDT Respiratory Rate 16 01/23/2024 2:40 PM CDT Oxygen Saturation - - Inhaled Oxygen Concentration - - Weight 76 kg (167 lb 8.8 oz) 01/23/2024 2:40 PM CDT Height 158 cm (5' 2.21) 01/23/2024 2:4 0 PM CDT Body Mass Index 30.44 01/23/2024 2:40 PM CDT documented in this encounter H&P Notes * Brian Markham P.A.-C., P.A. - 01/23/2024 3:00 PM CDT SUBJECTIVE CHIEF COMPLAINT / REASON FOR VISIT Monica Herndon is a 29 y.o. female who presents for evaluation of Annual Exam (Would like to be checked for STD). HISTORY OF PRESENT ILLNESS Monica presents today for her yearly history and physical. She has a history of anxiety that has done well with propranolol. She has due for a Pap smear. She has been sexually active with multiple different partners. She has not been using condoms always. She is not intending to get . She denies any vaginal discharge or other concerns but would like to be screened for STDs Current Outpatient Medications Medication Sig Dispense Refill naphazo HCl-hpm-ps 80-Zn sulf (Clear Eyes Complete) 0.025-0.2-0.5 % drops Administer 1 drop into both eyes as needed. 3 x per week for dry eyes propranoloL (INDERAL) 40 mg tablet Take 1 tablet (40 mg total) by mouth 3 (three) times a day as needed (anxiety). 30 tablet 11 No current facility-administered medications for this visit. Allergies Allergen Reactions Lactulose Other (see comments) MEDICAL HISTORY Patient Active Problem List Diagnosis Keratosis Pilaris Anxiety Past Surgical History: Procedure Laterality Date DILATATION AND CURETTAGE july 2014 Social History Tobacco Use Smoking status: Former Current packs/day: 0.25 Types: Cigarettes Smokeless tobacco: Never Vaping Use Vaping status: current every day use Substances: Nicotine Substance Use Topics Alcohol use: Not Currently Alcohol/week: 3.0 standard drinks of alcohol Types: 3 Standard drinks or equivalent per week Comment: drinks 3 days week Drug use: No Family History Adopted: Yes OBJECTIVE Vitals: 01/23/24 1440 BP: 112/72 BP Location: Left arm Patient Position: Sitting Cuff Size: Regular Pulse: 79 Resp: 16 Temp: (!) 35.9 ??C TempSrc: Temporal Weight: 76 kg Height: 158 cm Body mass index is 30.44 kg/m??. PHYSICAL EXAMINATION General: Patient appears in no acute distress. ENT: TMs no erythema. Throat no erythema. Neck: No lymphadenopathy. No thyroid masses. Heart: Regular rate and rhythm. No murmurs. Lungs: Clear to auscultation. Breasts: Symmetrical. No lumps appreciated. No axillary lymph nodes palpable. Abdomen: Soft and nontender to palpation. Genitalia: Normal external female genitalia. Pap smear was obtained. Bimanual exam showed no cervical motion tenderness. ASSESSMENT / PLAN #1 General Medical Examination Adult We updated her hepatitis B vaccine today. I will notify her when I get the results of her Pap smearback. We did discuss contraception and for now she wants to continue using condoms #2 Pap Smear Examination I will notify her when I get the results of her Pap smear #3 Screening For Venereal Disease We did do GC chlamydia and HIV. I will notify her when I get the results #4 Anxiety She will continue with the propranolol as needed. If she has any further questions or problems she will let us know Brian Markham P.A.-C., P.A. documented in this encounter Plan of Treatment Not on file documented as of this encounter Procedures Procedure Name Priority Date/Time Associated Diagnosis Comments THINPREP SCREEN HPV REFLEX Routine 01/23/2024 3:18 PM CDT Pap Smear Examination CHLAMYDIA/GONORRHOE AE AMPLIFIED RNA Routine 01/23/2024 3:18 PM CDT Screening For Venereal Disease documented [...] P.A.-C. LAB MICROBIOLO GY - BLOOD ORDERABLES [facility] [address] [place] [address], [facility] in [address] [address] * Chlamydia / Gonorrhoeae Amplified RNA (01/23/2024 [...] P.A.-C. LAB MICROBIOLO GY - GENERAL ORDERABLES [facility] [address] [place] [address], [facility] [address] [address] * ThinPrep Screen HPV Reflex (01/23/2024 3:18 [...] PM CDT 01/25/2024 9:41 AM CDT Brian MurphyC. LAB PAP PATHDX ORDERABLES [facility] [address] [place] [address], [facility] [address] [facility] [address] [place] [address] documented in this encounter Visit Diagnoses Diagnosis General Medical Examination Adult- Primary Pap Smear Examination Screening For Venereal Disease Anxiety documented in this encounter Additional Health Concerns Assessment Noted Time PHQ-9 Depression Total Score: 7 01/23/20 24 2:47 PM CDT documented as of this encounter Care Teams Senior Sql Server Dba Relationship Specialty Start Date End Date Brian Markham P.A.-C. PCP - General 01/04/17 documented as of this encounter
--- OUTSIDE RECORDS SUMMARY | 2024-04-21 09:09 | XMS_ITS ---
Author Organization [facility] Address [address] [place] [address] Care Team Providers Care Crm System Administrator Name Role Phone Unavailable Unavailable Unavailable Surgery Details Not on file Complications Check Surgery Details section. Procedure Estimated Blood Loss Check Surgery Details section. Procedure Findings Check Surgery Details section. Procedure Specimens Taken Check Surgery Details section.
--- OUTSIDE RECORDS SUMMARY | 2024-04-21 09:09 | XMS_ITS | Encounter Summary ---
Author Organization [facility] Address [address] [place] [address] Care Team Providers Care Retail Loss Prevention Specialist Name Role Phone Brian Markham P.A.-C. Primary Care Provider Reason for Visit * Reason Comments Nurse Visit * Appointment Request (Routine) - Pending Review Specialty Diagnoses / Procedures Referred By Conttorsten t Referred To Contact Family Medicine Referral ID Status Reason Start Date Expiration Date V isits Requested Visits Authorized [id number] Pending Review 01/23/2024 01/22/2025 1 1 Encounter Details Date Type Department Care Team (Late st Contact Info) Description 02/29/2024 10:15 AM CDT Nurse Only Department of Family Medicine, [facility], in [address] [phone] Marie Wells, L.P.N. [address] [phone] Nurse Visit Social History Tobacco Use Types Packs/Day Years Used Date Smoking Tobacco: Former Cigarettes Smokeless Tobacco: Never Alcohol Use Standard Drinks/Week Comments Not Currently 3 (1 standard drink = 0.6 oz pur e alcohol) drinks 3 days week [facility] Utilities Answer Date Recorded In the past 12 months has e electric, gas, oil, or water company [...] 06/03/2022 How often do you attend chur or cheondoism services? Never 06/03/2022 Do you belong to any clubs o r organizations such as uatsdin groups, unions, fraternal or athletic groups, or [...] Answer Date Recorded PHQ-2 Score 2 01/23/2024 [facility] - Occupational Stress Questionnaire Answer Date [...] your living situation today? [facility] 11/15/2023 Education Answer Date Recorded What is the highest level of school you have completed or the highest degree you have received? 12th grade 06/03/2022 Sex and Gender Information Value Date Recorded Sex Assigned at Female 09/27/2017 9:28 AM WEIGHT LOSS PHYSICIAN Gender Identity Female 09/27/2017 9:28 AM WEIGHT LOSS PHYSICIAN Sexual Orientation Straight 09/27/2017 9: 28 AM WEIGHT LOSS PHYSICIAN documented as of this encounter Plan of Treatment Not on file documented as of this encounter Visit Diagnoses Diagnosis Need Vaccine Immunization Hepatitis B- Primary documented in this encounter Additional Health Concerns Assessment Noted Time PHQ-9 Depression Total Score: 7 01/23/20 24 2:47 PM CDT documented as of this encounter Care Teams Retail Loss Prevention Specialist Relationship Specialty Start Date End Date Brian Markham P.A.-C. PCP - General 01/04/17 documented as of this encounter
--- NOTE | 2024-04-21 09:15 | CRLHL7_ITS ---
For Patients: As a result of the Century Cures Act, medical imaging exams and procedure reports are released immediately into your electronic medical record. You may view this report before your referring provider. If you have questions, please contact your health care provider. INDICATION: First trimester scan, establish dates. COMPARISON: None. TECHNIQUE: Real-time serna-scale imaging of the pelvis was performed. FINDINGS: Sonographic imaging demonstrates a single living intrauterine gestation. The embryo demonstrates a regular cardiac rate measuring 167 beats per minute. The embryo`s crown-rump length measurement of 1.4 cm corresponds to a gestational age of 7 weeks 5 days with a sonographic due date of 12/03/2024. There is a normal-appearing yolk sac. There are no gross abnormalities noted within the embryo at this early state of development. The gestational sac has a normal appearance. There is no evidence of a perigestational hemorrhage. The amount of fluid within the sac appears appropriate for gestational age. The cervix is closed. The myometrium appears normal. The ovaries are of normal size. Simple cyst left ovary measures 2.0 x 1.7 x 2.1 cm. There are no suspicious fluid collections noted in the cul-de-sac. IMPRESSION: Single living intrauterine with sonographic gestational age 7 weeks 5 days and sonographic due date of 12/03/2024. Simple left ovarian cyst measures 2.1 cm. Dictated by Praneeth Miller MD @ 04/21/2024 10:18:16 AM (Electronically Signed)
== END 2024-04-21 09:02 | disposition home or self-care (01) ==
LOC: US 09:04
PROVIDERS: PCP Physician Assistant; Visit Provider Midwife
DX: Z34.91 Encounter for supervision of normal pregnancy, unspecified, first trimester (principal); Z3A.08 8 weeks gestation of pregnancy
CPT/HCPCS: 76817; 86592; 86703; 86704; 86706; 86762; 86787; 86803; 86850; 86900; 86901; 87086; 87186; 87340; 87491; 87591

== ENCOUNTER 2024-04-21 10:04 | Outpatient (CLI) | payer MEDICAID, SELFPAY ==
--- OUTSIDE RECORDS SUMMARY | 2024-04-21 10:07 | XMS_ITS | Referral Summary ---
Author Organization [facility] Address [address] [place] [address] Care Team Providers Care Shipping Support Name Role Phone Brian Markham-C. Primary Care Provider Source Comments Patient records contain information from all sites at [facility]. For routine questions regarding patient records, call [phone] during business hours, M-F 8:00 AM - 5:00 PM Central Time. Record requests for emergency care only can be directed to [phone] at any time.[facility] Encounters Date Type Department Care Team Description 02/29/2024 10:15 AM CDT Nurse Only Department of Family Medicine, [facility], in [address] [phone] Marie Wells, L.P.N. Nurse Visit 01/23/2024 3:33 PM CDT - 01/23/2024 11:59 PM CDT Hospital Encounter Department of Laboratory Medicine in [address] [phone] Brian Markham, P.A.-C. Screening For Venereal Disease Discharge Disposition: Home or Self Care 01/23/2024 3:00 PM CDT Office Visit Department of Family Medicine, [facility], in [address] [phone] Brian Markham, P.A.-C. General Medical Examination Adult [...] pur e alcohol) drinks 3 days week [facility] Service Management Groupities Answer Date Recorded In the past 12 months has e [employer], gas, oil, or water [employer] threatened to shut off services in your [...] often do you attend chur ch or anabaptist services? Never 06/03/2022 Do you belong to any clubs o r organizations such as confucianist groups, unions, fraternal or athletic groups, or [...] Answer Date Recorded PHQ-2 Score 2 01/23/2024 [facility] - Occupational Stress Questionnaire Answer Date Recorded [...] Sex Assigned at Female 09/27/2017 9:28 AM RELIGIOUS LEADER Gender Identity Female 09/27/2017 9:28 AM RELIGIOUS LEADER Sexual Orientation Straight 09/27/2017 9: 28 AM RELIGIOUS LEADER Last Filed Vital Signs Vital Sign Reading [...] on file Medical Devices Explanted Type Area Lath Hand Device Identifier Shelf Expiration Date Model / Serial / Lot Subdermal Contraceptive Implant-05/11/20 21 Implanted:Qty: 1 on 05/11/2021 by Ron Myers Jr., M.D. Explanted:Qty: 1 on 04/07/2022 by Deedee Arias, DEBORAH, C.N.P. Subdermal Contraceptive Implant Left: Arm Wade 10/27/2023 / / [id number] Procedures Procedure Name Priority Date/Time Associated Diagnosis Comments HIV-1/-2 AG AND AB SCREEN, PLASMA Routine 01/23/2024 3:43 PM CDT Screening For Venereal Disease THINPREP SCREEN HPV REFLEX Routine 01/23/2024 3:18 PM CDT Pap Smear Examination CHLAMYDIA/GONORRHOE AE AMPLIFIED RNA Routine 01/23/2024 3:18 PM CDT Screening For Venereal Disease HCV AB SCRN , S Routine 07/14/2022 9:06 AM RELIGIOUS LEADER Encounter For Supervision Of Other Normal Unspecified [...] GY - BLOOD ORDERABLES Performing Organization Address City/[facility] Co de Phone Number [facility] [address] [place] [address], [place] [facility] [place] [address] [place] [address] * ThinPrep Screen HPV Reflex (01/23/2024 3:18 [...] Brian Markham P.A.-C. LAB PAP PATHDX ORDERABLES [facility] [address] [place] [address], [facility] [address] [facility] [address] [place] [address] * Chlamydia / Gonorrhoeae Amplified RNA (01/23/2024 [...] P.A.-C. LAB MICROBIOLO GY - GENERAL ORDERABLES [facility] [address] [place] [address], [facility] [address] [address] * Hepatitis C Virus Antibody Screen (07/14/2022 9:06 AM RELIGIOUS LEADER) HCV Ab Scrn , S Negative Negative 07/15/2022 10:31 AM RELIGIOUS LEADER [facility] Comment:Fqcbwy-vy-hlocec rat io is <1.00. Blood (Blood, Venous) 07/14/2022 9:06 AM RELIGIOUS LEADER 07/15/2022 7:39 AM RELIGIOUS LEADER Arnold Mclaughlin M.D. LAB MICROBIOLOGY - B LOOD ORDERABLES [facility] [address] [place] [address] [facility] [address] [place] [address] from Last 3 Months or Most Recently Relevant to Health Maintenance Care Teams Shipping Support Relationship Specialty Start Date End Date Brian Markham P.A.-C. PCP - General 01/04/17
--- OUTSIDE RECORDS SUMMARY | 2024-04-21 10:07 | XMS_ITS | Clinical Summary ---
Author Organization [facility] Address [address] [place] [address] Care Team Providers Care Ammonia Box Operator Name Role Phone Brian Markham P.A.-C. Primary Care Provider Source Comments Patient records contain information from all sites at [facility]. For routine questions regarding patient records, call [phone] during business hours, M-F 8:00 AM - 5:00 PM Central Time. Record requests for emergency care only can be directed to [phone] at any time.[facility] Allergies Active Allergy Reactions Criticality Noted Date [...] 10:15 AM CDT Nurse Only Department of [facility], [facility], [address] [phone] Marie Wells, L.P.N. Nurse Visit 01/23/2024 3:33 PM CDT - 01/23/2024 11:59 PM CDT Hospital Encounter Department of Laboratory Medicine [address] [phone] Brian Markham, P.A.-C. Screening For Venereal Disease Discharge Disposition: Home or Self Care 01/23/2024 3:00 PM CDT Office Visit Department of [facility], [facility], [address] [phone] Brian Markham, P.A.-C. General Medical Examination Adult [...] pur e alcohol) drinks 3 days week [facility] [employer] Answer Date Recorded In the past 12 months has e [employer], gas, oil, or water [facility] threatened to shut off services in your [...] often do you attend chur ch or sikh services? Never 06/03/2022 Do you belong to any clubs o r organizations such as protestant groups, unions, fraternal or athletic groups, or [...] Answer Date Recorded PHQ-2 Score 2 01/23/2024 [facility] [place] [facility] - Occupational Stress Questionnaire Answer Date [...] Sex Assigned at Female 09/27/2017 9:28 AM MILKING MACHINE MECHANIC Gender Identity Female 09/27/2017 9:28 AM MILKING MACHINE MECHANIC Sexual Orientation Straight 09/27/2017 9: 28 AM MILKING MACHINE MECHANIC Last Filed Vital Signs Vital Sign Reading [...] this topic Medical Devices Explanted Type Area Rubber Vulcanizing Machine Operator Device Identifier Shelf Expiration Date Model / Serial / Lot Subdermal Contraceptive Implant-05/11/20 21 Implanted:Qty: 1 on 05/11/2021 by Ron Myers Jr., M.D. Explanted:Qty: 1 on 04/07/2022 by Deedee Arias, DEBORAH, C.N.P. Subdermal Contraceptive Implant Left: Arm [facility] 10/27/2023 / / [id number] Procedures Procedure Name Priority Date/Time Associated Diagnosis Comments HIV-1/-2 AG AND AB SCREEN, PLASMA Routine 01/23/2024 3:43 PM CDT Screening For Venereal Disease THINPREP SCREEN HPV REFLEX Routine 01/23/2024 3:18 PM CDT Pap Smear Examination CHLAMYDIA/GONORRHOE AE AMPLIFIED RNA Routine 01/23/2024 3:18 PM CDT Screening For Venereal Disease HCV AB SCRN , S Routine 07/14/2022 9:06 AM MILKING MACHINE MECHANIC Encounter For Supervision Of Other Normal Unspecified [...] GY - BLOOD ORDERABLES Performing Organization Address [facility]/State/ZIP Co de Phone Number [facility] [address] [place] [address], [facility] [address] * ThinPrep Screen HPV Reflex (01/23/2024 3:18 [...] LAB PAP PATHDX ORDERABLES Performing Organization Address [facility] Co de Phone Number [facility] [address] [place] [address], [facility] [address] [place] [address] * Chlamydia / Gonorrhoeae Amplified RNA (01/23/2024 [...] GY - GENERAL ORDERABLES Performing Organization Address City/[facility] Co de Phone Number [facility] [address] [place] [address], [facility] [address] [place] [address] * Hepatitis C Virus Antibody Screen (07/14/2022 9:06 AM MILKING MACHINE MECHANIC) HCV Ab Scrn , S Negative Negative 07/15/2022 10:31 AM MILKING MACHINE MECHANIC [facility] Comment:Vhpnzq-mr-tvdzam rat io is <1.00. Blood (Blood, Venous) 07/14/2022 9:06 AM MILKING MACHINE MECHANIC 07/15/2022 7:39 AM MILKING MACHINE MECHANIC Arnold Mclaughlin M.D. LAB MICROBIOLOGY - B LOOD ORDERABLES [facility] [address] [place] [address] [facility] [address] [place] [address] from Last 3 Months or Most Recently Relevant to Health Maintenance Care Teams Ammonia Box Operator Relationship Specialty Start Date End Date Brian Markham P.A.-C. PCP - General 01/04/17
--- OUTSIDE RECORDS SUMMARY | 2024-04-21 10:07 | XMS_ITS | Encounter Summary ---
Author Organization [facility] Address [address] [place] [address] Care Team Providers Care Blend Plant Operator Name Role Phone Brina MarkhamALina-CLina Primary Care Provider Reason for Visit * Reason Comments Annual Exam Would like to be mayra cked for STD * Outpatient (Routine) - Closed Specialty Diagnoses / Procedures Referred By Conttorsten t Referred To Contact Family Medicine Brian Markham, P.A.-CLina [address] [place] [phone] [facility] Region Referral ID Status Reason Start Date Expiration Date Visits Re quested Visits Authorized [id number] Closed 11/27/2023 05/28/2025 1 1 Encounter Details Date Type Department Care Team (Late st Contact Info) Description 01/23/2024 3:00 PM CDT Office Visit Department of Family Medicine, [facility], in [place], [place] [address] [place] [phone] Brian Markham P.A.-C. [address] [place] [phone] General Medical Examination Adult (Primary Dx); Pap Smear Examination; Screening For Venereal Disease; Anxiety Social History Tobacco Use Types Packs/Day Years Used Date Smoking Tobacco: Former Cigarettes Smokeless Tobacco: Never Tobacco Cessation:Counseling Given: Not Answered Alcohol Use Standard Drinks/Week Comments Not Currently 3 (1 standard drink = 0.6 oz pur e alcohol) drinks 3 days week [facility] Utilities Answer Date Recorded In the [...] often do you attend chur ch or jehovah's witness services? Never 06/03/2022 Do you belong to any clubs o r organizations such as buddhism groups, unions, fraternal or athletic groups, or [...] Answer Date Recorded PHQ-2 Score 2 01/23/2024 [facility] - Occupational Stress Questionnaire Answer Date [...] Sex Assigned at Female 09/27/2017 9:28 AM DATA OPERATIONS DIRECTOR Gender Identity Female 09/27/2017 9:28 AM DATA OPERATIONS DIRECTOR Sexual Orientation Straight 09/27/2017 9: 28 AM DATA OPERATIONS DIRECTOR documented as of this encounter Last Filed [...] P.A.-C. LAB MICROBIOLO GY - BLOOD ORDERABLES [facility] [address] [place] [id number], [facility] in [address] [address] * Chlamydia / Gonorrhoeae Amplified RNA (01/23/2024 [...] P.A.-C. LAB MICROBIOLO GY - GENERAL ORDERABLES [facility] [address] [place] [address], [facility] [address] [address] * ThinPrep Screen HPV Reflex (01/23/2024 3:18 [...] CDT Brian MurphyC. LAB PAP PATHDX ORDERABLES [facility] [address] [place] [address], [facility] [address] [facility] [address] [place] [address] documented in this encounter Visit Diagnoses Diagnosis General Medical Examination Adult- Primary Pap Smear Examination Screening For Venereal Disease Anxiety documented in this encounter Additional Health Concerns Assessment Noted Time PHQ-9 Depression Total Score: 7 01/23/20 24 2:47 PM CDT documented as of this encounter Care Teams Blend Plant Operator Relationship Specialty Start Date End Date Brian Markham P.A.-C. PCP - General 01/04/17 documented as of this encounter
--- OUTSIDE RECORDS SUMMARY | 2024-04-21 10:07 | XMS_ITS ---
Author Organization [facility] Address [address] [place] [address] Care Team Providers Care French Edge Operator Name Role Phone Unavailable Unavailable Unavailable Surgery Details Not on file Complications Check Surgery Details section. Procedure Estimated Blood Loss Check Surgery Details section. Procedure Findings Check Surgery Details section. Procedure Specimens Taken Check Surgery Details section.
--- OUTSIDE RECORDS SUMMARY | 2024-04-21 10:07 | XMS_ITS | Encounter Summary ---
Author Organization [facility] Address [address] [place] [address] Care Team Providers Care Manager Employee Benefits Name Role Phone Brian Markham P.A.-C. Primary Care Provider Reason for Visit * Reason Comments Nurse Visit * Appointment Request (Routine) - Pending Review Specialty Diagnoses / Procedures Referred By Conttorsten t Referred To Contact Family Medicine Referral ID Status Reason Start Date Expiration Date V isits Requested Visits Authorized [id number] Pending Review 01/23/2024 01/22/2025 1 1 Encounter Details Date Type Department Care Team (Late st Contact Info) Description 02/29/2024 10:15 AM CDT Nurse Only Department of Family Medicine, [facility], in [address] [phone] Marie Wells, L.P.N. [address] [phone] Nurse Visit Social History Tobacco Use Types Packs/Day Years Used Date Smoking Tobacco: Former Cigarettes Smokeless Tobacco: Never Alcohol Use Standard Drinks/Week Comments Not Currently 3 (1 standard drink = 0.6 oz pur e alcohol) drinks 3 days week [facility] Utilities Answer Date Recorded In the [...] How often do you attend chur or sabianist services? Never 06/03/2022 Do you belong to any clubs o r organizations such as temple groups, unions, fraternal or athletic groups, or [...] Answer Date Recorded PHQ-2 Score 2 01/23/2024 [facility] [place] [facility] - Occupational Stress [...] your living situation today? I have a [facility] place to live 11/15/2023 Education Answer Date Recorded What is the highest level of school you have completed or the highest degree you have received? 12th grade 06/03/2022 Sex and Gender Information Value Date Recorded Sex Assigned at Female 09/27/2017 9:28 AM BODY COVERER Gender Identity Female 09/27/2017 9:28 AM BODY COVERER Sexual Orientation Straight 09/27/2017 9: 28 AM BODY COVERER documented as of this encounter Plan of Treatment Not on file documented as of this encounter Visit Diagnoses Diagnosis Need Vaccine Immunization Hepatitis B- Primary documented in this encounter Additional Health Concerns Assessment Noted Time PHQ-9 Depression Total Score: 7 01/23/20 24 2:47 PM CDT documented as of this encounter Care Teams Manager Employee Benefits Relationship Specialty Start Date End Date Brian Markham P.A.-C. PCP - General 01/04/17 documented as of this encounter
--- OUTSIDE RECORDS SUMMARY | 2024-04-21 10:07 | XMS_ITS | Encounter Summary ---
Author Organization [facility] Address [address] [place] [address] Care Team Providers Care Manager Field Investigations Name Role Phone Brian Markham P.A.-C. Primary Care Provider Encounter Details Date Type Department Care Team (Latest Contact Info) Description 01/23/2024 3:33 PM CDT - 01/23/2024 11:59 PM CDT Hospital Encounter Department of Laboratory Medicine in [place], [place] [address] [place] [phone] Brian Markham P.A.-C. [address] [place] [phone] Screening For Venereal Disease Discharge Disposition: Home or Self Care Social History Tobacco Use Types Packs/Day Years Used Date Smoking Tobacco: Former Cigarettes Smokeless Tobacco: Never Alcohol Use Standard Drinks/Week Comments Not Currently 3 (1 standard drink = 0.6 oz pur e alcohol) drinks 3 days week [facility] Utilities Answer Date Recorded In the past 12 months has [employer], oil, or water [employer] threatened to shut off services in your [...] 06/03/2022 How often do you attend chur [employer] or church services? Never 06/03/2022 Do you belong to any clubs o r organizations such as christian groups, unions, fraternal or athletic groups, or [...] Answer Date Recorded PHQ-2 Score 2 01/23/2024 [facility] - Occupational Stress Questionnaire Answer Date [...] Sex Assigned at Female 09/27/2017 9:28 AM CHIROPRACTIC PHYSICIAN Gender Identity Female 09/27/2017 9:28 AM CHIROPRACTIC PHYSICIAN Sexual Orientation Straight 09/27/2017 9: 28 AM CHIROPRACTIC PHYSICIAN documented as of this encounter Medications at [...] P.A.-C. LAB MICROBIOLO GY - BLOOD ORDERABLES [facility] [address] [place] [address], [place] [facility] [place] [address] [place] [address] documented in this encounter Visit Diagnoses Diagnosis Screening For Venereal Disease documented in this encounter Additional Health Concerns Assessment Noted Time PHQ-9 Depression Total Score: 7 01/23/20 24 2:47 PM CDT documented as of this encounter Care Teams Manager Field Investigations Relationship Specialty Start Date End Date Brian Markham P.A.-C. PCP - General 01/04/17 documented as of this encounter
[2024-04-21 18:15] LABS: Chlamydia DNA Amplified* NOT DETECTED (No Detected); GC DNA Amplified* NOT DETECTED (No Detected)
== END 2024-04-21 10:05 | disposition home or self-care (01) ==
PROVIDERS: PCP Physician Assistant; Visit Provider Advanced Practice Midwife
DX: Z34.81 Encounter for supervision of other normal pregnancy, first trimester (principal); Z3A.08 8 weeks gestation of pregnancy
CPT/HCPCS: 86592; 86703; 86704; 86706; 86762; 86787; 86803; 86850; 86900; 86901; 87086; 87186; 87340; 87491; 87591

== ENCOUNTER 2024-05-01 14:44 | Outpatient (CLI) | payer BC, SELFPAY ==
--- OUTSIDE RECORDS SUMMARY | 2024-05-01 14:48 | XMS_ITS | Encounter Summary ---
Author Organization [facility] Address [address] [place] [address] Care Team Providers Care Insulation Mechanic Name Role Phone Brian MarkhamALina-CLina Primary Care Provider Encounter Details Date Type Department Care Team (Latest Contact Info) Description 01/23/2024 3:33 PM CDT - 01/23/2024 11:59 PM CDT Hospital Encounter Department of Laboratory Medicine in [place], [place] [address] [place] [address] Brian Markham P.A.-CLina [address] [place] [phone] Screening For Venereal Disease Discharge Disposition: Home or Self Care Social History Tobacco Use Types Packs/Day Years Used Date Smoking Tobacco: Former Cigarettes Smokeless Tobacco: Never Alcohol Use Standard Drinks/Week Comments Not Currently 3 (1 standard drink = 0.6 oz pur e alcohol) drinks 3 days week [facility] Utilities Answer Date Recorded In the past 12 months has [employer], oil, or water [employer] threatened to shut off services in your [...] How often do you attend chur or gnosticism services? Never 06/03/2022 Do you belong to any clubs o r organizations such as shinto groups, unions, fraternal or athletic groups, or [...] Answer Date Recorded PHQ-2 Score 2 01/23/2024 [facility] Occupat ional Health - Occupational Stress [...] your living situation today? I have a [facility] place to live 11/15/2023 Education Answer Date Recorded What is the highest level of school you have completed or the highest degree you have received? 12th grade 06/03/2022 Sex and Gender Information Value Date Recorded Sex Assigned at Female 09/27/2017 9:28 AM CAMERA STORAGE CLERK Gender Identity Female 09/27/2017 9:28 AM CAMERA STORAGE CLERK Sexual Orientation Straight 09/27/2017 9: 28 AM CAMERA STORAGE CLERK documented as of this encounter Medications at [...] P.A.-C. LAB MICROBIOLO GY - BLOOD ORDERABLES [facility] [address] [place] [address] [place] [address], [facility] in [address] [place] [address] documented in this encounter Visit Diagnoses Diagnosis Screening For Venereal Disease documented in this encounter Additional Health Concerns Assessment Noted Time PHQ-9 Depression Total Score: 7 01/23/20 24 2:47 PM CDT documented as of this encounter Care Teams Insulation Mechanic Relationship Specialty Start Date End Date Brian Markham P.A.-C. PCP - General 01/04/17 documented as of this encounter
--- OUTSIDE RECORDS SUMMARY | 2024-05-01 14:48 | XMS_ITS | Encounter Summary ---
Author Organization [facility] Address [address] [place] [address] Care Team Providers Care Vacuum System Tester Name Role Phone Brian Markham P.A.-C. Primary Care Provider Reason for Visit * Reason Comments Vaginal Bleeding Patient stated she i s about 9 weeks . Started bleeding today. Has history of miscarriage. Encounter Details Date Type Department Care Team (Late st Contact Info) Description 04/27/2024 5:42 PM CDT - 04/27/2024 9:09 PM CDT Emergency [facility] [address] [place] [phone] Becca Maynard, P.Raphael.-C., P.A., M.S. [address] [place] [address] Incomplete Spontaneous (HCC) (Primary Dx); Acute Cystitis Without Hematuria Discharge Disposition: Home or Self Care Social History Tobacco Use Types Packs/Day Years Used Date Smoking Tobacco: Former Cigarettes Smokeless Tobacco: Never Alcohol Use Standard Drinks/Week Comments Not Currently 3 (1 standard drink = 0.6 oz pur e alcohol) [facility] Utilities Answer Date Recorded In the [...] How often do you attend chur or buddhism services? Never 06/03/2022 Do you belong to any clubs o r organizations such as christianity groups, unions, fraternal or athletic groups, or [...] Answer Date Recorded PHQ-2 Score 2 01/23/2024 [facility] - Occupational Stress Questionnaire Answer Date [...] your living situation today? I have a [facility] place to live 11/15/2023 Education Answer Date Recorded What is the highest level of school you have completed or the highest degree you have received? 12th grade 06/03/2022 Comments Yes Sex and Gender Information Value Date Recorded Sex Assigned at Female 09/27/2017 9:28 AM RESOURCE DIRECTOR Gender Identity Female 09/27/2017 9:28 AM RESOURCE DIRECTOR Sexual Orientation Straight 09/27/2017 9: 28 AM RESOURCE DIRECTOR documented as of this encounter Last Filed Vital Signs Vital Sign Reading Time Taken Comments Blood Pressure 114/71 04/27/2024 8:30 PM CDT Pulse 72 04/27/2024 8:30 PM CDT Temperature 36.9 ??C (98.4 ??F) 04/27/2024 5:50 PM CD T Respiratory Rate 17 04/27/2024 5:50 PM CDT Oxygen Saturation 100% 04/27/2024 8:30 PM CDT Inhaled Oxygen Concentration - - Weight - - Height - - Body Mass Index - - documented in this encounter Discharge Instructions * Discharge Instructions* Becca Maynard P.A.-C., PPaolo, M.S. - 04/27/2024 9:03 PM CDT Take Tylenol and/or Ibuprofen for pain relief, as needed. You may alternate these medications if one alone does not provide enough relief in pain. Take your antibiotics until gone. Follow up with your OBGYN 48 hours for a repeat blood test (HCG) and reassessment. You were examined and treated today in the Emergency Department (ED) on an emergency basis. This visit is not a substitute for comprehensive and ongoing medical care. You will need to follow up with your primary physician for reassessment. Call your doctor today to advise them of your ED visit and arrange for outpatient follow up. Tell your doctor about any new orlasting problems. Please adhere to the ER the instructions provided today. Return to the Emergency Department for worsening symptoms. * Attachments The following attachments cannot be sent through Care Everywhere. * Urinary Tract Infection Adult (Kenyan) * Miscarriage Vcnc-vs-Jqhp (Kenyan) documented in this encounter Medications at Time of Discharge Medication Sig Dispensed Refills Start Date End Date naphazo HCl-hpm-ps 80-Zn sulf (Clear Eyes Complete) 0.025-0.2-0.5 % drops Administer 1 drop into both eyes as needed. 3 x per week for dry eyes nitrofurantoin monohydrate (Macrobid) 100 mg capsule Take 100 mg by mouth 2 (two) times a day. propranoloL (INDERAL) 40 mg tablet Take 1 tablet (40 mg total) by mouth 3 (three) times a day as needed (anxiety). 30 tablet 11 08/22/2023 08/21/2024 documented as of this encounter ED Notes * Becca Maynard P.A.-C., PPaolo, M.S. - 04/27/2024 6:04 PM CDT CHIEF COMPLAINT/REASON FOR VISIT Vaginal Bleeding (Patient stated she is about 9 weeks . Started bleeding today. Has historyof miscarriage. ) PHYSICAL EXAMINATION Nursing notes reviewed. Initial Vitals Temperature 04/27/24 1750 36.9 ??C Pulse Rate 04/27/24 1750 93 Heart Rate -- Resp Rate 04/27/24 1750 17 Blood Pressure 04/27/24 1750 133/81 SpO2 04/27/24 1750 100 % Pain Score 04/27/24 1747 0 - No pain Vitals: 04/27/24 1750 04/27/24 2030 BP: 133/81 114/71 BP Location: Right arm Patient Position: Sitting Pulse: 93 72 Resp: 17 Temp: 36.9 ??C TempSrc: Oral SpO2: 100% 100% General: Awake, alert, oriented x3. Well-developed, hydrated and nourished. Nontoxic. No apparent distress. Head: Normocephalic, atraumatic. Eyes: Normal sclerae and conjunctivae, PERRLA, extraocular movements intact ENT: Oropharynx is clear. Nose is symmetric. Nares patent. Nasal septum is midline without hematoma. Moist mucus membranes. Hearing is grossly normal. Neck: Supple, full range of motion. Heart: Regular rate and rhythm. S1 and S2 normal. No murmurs, gallops, or rubs. Chest/Lungs: Normal respiratory effort. No labored breathing. No stridor, retractions, or respiratory distress. Lungs clear to auscultation bilaterally. No wheezing, rales, or rhonchi. Abd: Soft, symmetric, nontender, nondistended, normal bowel sounds. No masses or organomegaly. No rebound or guarding. Back: Normal to inspection. No deformity or external signs of trauma. Posture is upright. Normal curvature of spine. No spinal or paraspinal tenderness, no costovertebral angle tenderness. No discomfort is noted with movement. Ext: Warm, well-perfused. No cyanosis, clubbing, or edema. No bruising, swelling or deformity. Motor function is normal with full strength bilaterally to upper and lower extremities. Normal range of motion without bony tenderness. Gait is smooth and steady. Skin: Warm, dry, normal color for ethnicity. No rashes or diaphoresis. Nailbeds pink with no cyanosis or clubbing. Neuro: Awake, alert, GCS 15, speech clear, cranial nerves II-XII grossly intact, normal bulk, tone and strength in all extremities, normal sensation x4 without focal deficits. Memory is normal and though process is intact. No gait abnormalities appreciated. Vascular: Peripheral pulses symmetric, normal cap refill. Psych: Pleasant and appropriate. ED Course as of 04/27/242102 Sun Apr 27, [id number] Met with patient to perform history and physical exam, outline emergency department work up and initial treatment, as well as explain expected time frame. 1840 Bedside ultrasound shows gestational sac, but no obvious pole or cardiac activity. 1916 CBC is normal. There is no leukocytosis or anemia. HCG is 4384. Awaiting UA and ultrasound results 1944 The patient was reassessed and updated on results. She remains comfortable. Awaiting UA and ultrasound. 2041 UA shows cloudy urine, large leukocyte esterase, 11-20 white blood cells with bacteria present. 2041 Ultrasound results reveal findings suggestive of failed intrauterine , negative for detectable cardiac activity, continued clinical follow-up recommended. 2043 The patient was reassessed and updated on results and plan. We will prepare for discharge. Final Diagnoses: as of 04/27/242102 Incomplete Spontaneous (HCC) Acute Cystitis Without Hematuria MEDICAL DECISION MAKING: Monica Herndon is a 29 y.o. female who is (two spontaneous miscarriages) who is approximately 9 weeks (LMP 12/29/23) and presents for evaluation of vaginal bleeding that began today. The patient has established care for OB in [place]. She was evaluated last Sunday (six days ago) and states that she had a confirmation test, as well as an OB ultrasound which showeda single intrauterine . She states that she had 1 episode of vaginal bleeding this afternoon when she urinated. She has been wearing a pad and has had just mild vaginal spotting since. The patient states that she was treated for a urinary tract infection last Sunday at her OB Clinic. She states that she did not start the antibiotics (Macrobid) until Sunday (two days ago) as the pharmacy did not have her current phone number and she was not aware the medication was ready. She denies anyurinary symptoms at this time and states she never had any urinary symptoms. She denies any fevers,chills, sweats, chest pain, shortness of breath, abdominal pain, nausea, vomiting, flank pain, change in taste/smell, rash or skin changes, or other concerning symptoms. She has been eating and drinking normally. On ER arrival, the patient is well appearing, nontoxic with normal vitals. Exam is unremarkable. Differential diagnoses: Placental previa, Placental abruption, vasa previa, uterine fibroids, endometrial polyp, pelvic inflammatory disease, cervicitis, bleeding disorder, endometritis, coagulopathy, among others. ED course/interventions: Met with patient upon ER arrival. Labs were ordered, including CBC, hCG, and UA. There is no leukocytosis or anemia. HCG is 4384. Rh is noted to be positive in EMR review. UAshows cloudy urine, large leukocyte esterase, 11-20 white blood cells with bacteria present. Pelvisultrasound was ordered and showed failed intrauterine with no detectable cardiac activity. Impression/plan: Based on history, exam and diagnostics, symptoms are most consistent with likely miscarriage. Admission/obs considered but not felt warranted at this time. Using shared decision making, the patient is felt appropriate for discharge home and she will be discharged home with OTC analg esics, continue Macrobid for UTI, maintain adequate hydration, follow up with her OBGYN in 48 hoursfor repeat beta quant, and close follow up with her OBGYN to ensure completion of miscarriage. The evaluation, plan and return precautions were reviewed with patient and she was understanding and in agreement with plan. Patient questions were answered. -- History was obtained from: The patient and EMR review. -- Nursing documentation and prior inpatient and outpatient records were reviewed in the electronicmedical record to facilitate decision making regarding patient care. -- I personally reviewed by visualization, independent interpretation, and discussed with the patient the results of labs and imaging studies as noted above. -- Consultation: None -- Prescription management: No new prescriptions or changes to existing home medications. -- Social determinants of health: The patient has access to health care and transportation. No barriers to care identified. PROBLEMS ADDRESSED THIS VISIT: 1. Incomplete Spontaneous (HCC) 2. Acute Cystitis Without Hematuria Becca Maynard P.A.-C., P.A., M.S. 04/27/24 8332 documented in this encounter Plan of Treatment Not on file documented as of this encounter Procedures Procedure Name Priority Date/Time Associated Diagnosis Comments US OB FIRST TRIMESTER AND TRANSVAGINAL RAD - Semiurgent (Fast; most ED patients; some inpatients) 04/27/2024 8:16 PM CDT URINALYSIS WITH MICROSCOPIC IF INDICATED, U STAT 04/27/2024 7:41 PM CDT HC URINALYSIS AUTO WO MICRO STAT 04/27/2024 7:41 PM CDT CBC WITH DIFFERENTIAL, B STAT 04/27/2024 6:49 PM CDT HUMAN CHORIONIC GONADOTROPIN (HCG), UNIQUE, STAT 04/27/2024 6:49 PM CDT documented in this encounter Results * US OB First Trimester and Transvaginal (04/27/2024 8:16 PM CDT) Anatomical Region Laterality Modality Body, Ultrasound OB RST LOS, Ultrasound ARZ LOS, Ultrasound FLA LOS N/A Ultrasound Impressions 04/27/2024 8:32 PM CDT 1. ??Findings suggestive of failed intrauterine , negative for detectable cardiac activity, continued clinical follow-up recommended. Narrative 04/27/2024 8:32 PM CDT EXAM: US OB FIRST TRIMESTER AND TRANSVAGINAL COMPARISON: None TECHNIQUE: Transabdominal and Transvaginal FINDINGS: Number of Gestations: Single Gestational age and KUSHAL by LMP or OB/EHR assignment: 9 w 1 d, KUSHAL: 11/29/2024 INTRAUTERINE Pole: Abnormal, Innovation-Rump Length: 14.3 mm Gestational Sac: Abnormal Yolk Sac: Not seen Placenta Location: Too early to identify. Age and KUSHAL by current ultrasound measurements: 7 w 5 d, KUSHAL: 12/09/2024. heart rate: Negative for detectable cardiac activity Uterus: No unexpected findings. Right Ovary/Adnexa: Normal. Left Ovary/Adnexa: Corpus luteum or simple cyst measuring 2 cm. Cervical Length: Subjectively normal by Transabd evaluation only Intraperitoneal Fluid: None. Procedure Note Raheel Rush M.D. - 04/27/2024 EXAM: US OB FIRST TRIMESTER AND TRANSVAGINAL COMPARISON: None TECHNIQUE: Transabdominal and Transvaginal FINDINGS: Number of Gestations: Single Gestational age and KUSHAL by LMP or OB/EHR assignment: 9 w 1 d, KUSHAL:11/29/2024 INTRAUTERINE Pole: Abnormal, Innovation-Rump Length: 14.3 mm Gestational Sac: Abnormal Yolk Sac: Not seen Placenta Location: Too early to identify. Age and KUSHAL by current ultrasound measurements: 7 w 5 d, KUSHAL: 12/09/2024. heart rate: Negative for detectable cardiac activity Uterus: No unexpected findings. Right Ovary/Adnexa: Normal. Left Ovary/Adnexa: Corpus luteum or simple cyst measuring 2 cm. Cervical Length: Subjectively normal by Transabd evaluation only Intraperitoneal Fluid: None. IMPRESSION: 1. Findings suggestive of failed intrauterine , negative fordetectable cardiac activity, continued clinical follow-uprecommended. Becca Maynard P.A.-C., P.A., M.S. IMG OB US PROCEDURES * (ABNORMAL) Microscopic Automated (04/27/2024 7:41 PM CDT) White Blood Cells 11-20(A) /hpf 04/27/2024 7:53 PM CDT [facility] Comment: ----REFERENCE VALUE---- Males: 0-3 Females: 0-10 Unknown: 0-10 Red Blood Cells 3-10(A) 0 - 2 /hpf 7:53 PM CDT [facility] Dysmorphic Red Blood Cells <=25 <=25 % 04/27/2024 7:53 PM CDT [facility] Hyaline Casts 1-3 /lpf 04/27/2024 7:53 PM CDT [facility] Squamous Cells 4-10 /hpf 04/27/2024 7:53 PM CDT [facility] Bacteria Present(A) None Seen 04/27/2024 7:53 PM CDT [facility] Urine 04/27/2024 7:41 PM CDT 04/27/2024 7:44 PM CDT Becca Maynard P.A.-C., P.A., M.S. LAB URI NE ORDERABLES [facility] [address] [place] [address], [facility] in [place] [address] [place] [address] * (ABNORMAL) Urinalysis with Microscopic if Indicated (04/27/2024 7:41 PM CDT) Source Urine, Urine, Midstream 04/27/2024 7:47 PM CDT [facility] Clarity Cloudy(A) Clear 04/27/2024 7:47 PM CDT [facility] Color Yellow 04/27/2024 7:47 PM CDT [facility] Comment: ----REFERENCE VALUE---- Colorless Yellow Hellen Blood Large(A) Negative 04/27/2024 7:47 PM CDT [facility] Nitrite Negative Negative 04/27/2024 7:47 PM CDT [facility] Leukocyte Esterase Small(A) Negative 04/27/2024 7:47 PM CDT [facility] Protein Negative mg/dL 04/27/2024 7:47 PM CDT [facility] Comment: ----REFERENCE VALUE---- Negative Trace Glucose Negative Negative mg/dL 04/27/2024 7:47 PM CDT [facility] Ketone 80(A) Negative mg/dL 04/27/2024 7:47 PM CDT [facility] Bilirubin Negative Negative 04/27/2024 7:47 PM CDT [facility] pH 6.0 5.0 - 8.0 04/27/2024 7:47 PM CDT [facility] Specific [place] 1.015 1.001 - 1.035 04/27/2024 7:47 PM CDT [facility] Urobilinogen 0.2 0.2 - 1.0 mg/dL 04/27/2024 7:47 PM CDT [facility] Urine (Urine, Midstream) 04/27/2024 7:41 PM CDT 04/27/2024 7:44 PM CDT Becca Maynrad P.A.-C., P.A., M.S. LAB URI NE ORDERABLES Performing Organization Address [facility]/ZIP Co de Phone Number [facility] [address] [place] [address], [facility] in [place] [address] [place] [phone] * (ABNORMAL) hCG (Human Chorionic Gonadotropin), Quantitative, (04/27/2024 6:49 PM CDT) HCG, Quantitative, , P 4384(H) <5 IU/L 04/27/2024 7:12 PM CDT [facility] Blood (Blood, Venous) 04/27/2024 6:49 PM CDT 04/27/2024 6:52 PM CDT Becca Maynard P.A.-C., P.A., M.S. LAB BLO OD ADD-ON Performing Organization Address [facility]/ZIP Co de Phone Number [facility] [address] [place] [address], [facility] in [address] [phone] * CBC with Differential, Blood (04/27/2024 6:49 PM CDT) Hemoglobin 13.8 11.6 - 15.0 g/dL 04/27/2024 7:02 PM CDT [facility] Hematocrit 40.7 35.5 - 44.9 % 04/27/2024 7:02 PM CDT [facility] Erythrocytes 4.59 3.92 - 5.13 x10(12)/L 04/27/2024 7:02 PM CDT [facility] MCV 88.7 78.2 - 97.9 fL 04/27/2024 7:02 PM CDT [facility] RBC Distrib Width 12.8 12.2 - 16.1 % 04/27/2024 7:02 PM CDT [facility] Platelet Count 301 157 - 371 x10(9)/L 04/27/2024 7:02 PM CDT [facility] Leukocytes 7.6 3.4 - 9.6 x10(9)/L 04/27/2024 7:02 PM CDT [facility] Neutrophils 5.26 1.56 - 6.45 x10(9)/L 04/27/2024 7:02 PM CDT [facility] Lymphocytes 1.85 0.95 - 3.07 x10(9)/L 04/27/2024 7:02 PM CDT [facility] Monocytes 0.37 0.26 - 0.81 x10(9)/L 04/27/2024 7:02 PM CDT [facility] Eosinophils 0.06 0.03 - 0.48 x10(9)/L 04/27/2024 7:02 PM CDT [facility] Basophils <0.03 0.01 - 0.08 x10(9)/L 04/27/2024 7:02 PM CDT [facility] Blood (Blood, Venous) 04/27/2024 6:49 PM CDT 04/27/2024 6:52 PM CDT Becca Maynard P.A.-C., P.A., M.S. LAB BLO OD ADD-ON [facility] [address] [place] [address], [facility] in [place] [address] [place] [address] documented in this encounter Visit Diagnoses Diagnosis Incomplete Spontaneous (HCC)- Primary Acute Cystitis Without Hematuria documented in this encounter Additional Health Concerns Assessment Noted Time PHQ-9 Depression Total Score: 7 01/23/20 24 2:47 PM CDT documented as of this encounter Care Teams Vacuum System Tester Relationship Specialty Start Date End Date Brian Markham P.A.-C. PCP - General 01/04/17 documented as of this encounter
--- OUTSIDE RECORDS SUMMARY | 2024-05-01 14:48 | XMS_ITS ---
Author Organization [facility] Address [address] [place] [address] Care Team Providers Care Plastic Tile Setter Name Role Phone Unavailable Unavailable Unavailable Surgery Details Not on file Complications Check Surgery Details section. Procedure Estimated Blood Loss Check Surgery Details section. Procedure Findings Check Surgery Details section. Procedure Specimens Taken Check Surgery Details section.
--- OUTSIDE RECORDS SUMMARY | 2024-05-01 14:48 | XMS_ITS | Encounter Summary ---
Author Organization [facility] Address [address] [place] [address] Care Team Providers Care Director Informatics Name Role Phone Brian Markham.ALina-CLina Primary Care Provider Reason for Visit * Reason Comments Annual Exam Would like to be mayra cked for STD * Outpatient (Routine) - Closed Specialty Diagnoses / Procedures Referred By Estiven t Referred To Contact Family Medicine Brian Markham P.A.-CLina [address] [place] [address] [facility] Region Referral ID Status Reason Start Date Expiration Date Visits Re quested Visits Authorized [id number] Closed 11/27/2023 05/28/2025 1 1 Encounter Details Date Type Department Care Team (Late st Contact Info) Description 01/23/2024 3:00 PM CDT Office Visit Department of Family Medicine, [facility], in [place], [place] [address] [place] [address] rBian Markham, P.A.-C. [address] [place] [address] General Medical Examination Adult (Primary Dx); Pap Smear Examination; Screening For Venereal Disease; Anxiety Social History Tobacco Use Types Packs/Day Years Used Date Smoking Tobacco: Former Cigarettes Smokeless Tobacco: Never Tobacco Cessation:Counseling Given: Not Answered Alcohol Use Standard Drinks/Week Comments Not Currently 3 (1 standard drink = 0.6 oz pur e alcohol) drinks 3 days week [facility] Utilities Answer Date Recorded In the past 12 months has [facility] [employer], [employer], oil, or water [employer] threatened to shut off services in your [...] any clubs o r organizations such as cheondoism groups, unions, fraternal or athletic groups, or [...] Answer Date Recorded PHQ-2 Score 2 01/23/2024 [facility] - Occupational Stress Questionnaire Answer Date Recorded [...] your living situation today? [facility] 11/15/2023 Education Answer Date Recorded What is the highest level of school you have completed or the highest degree you have received? 12th grade 06/03/2022 Sex and Gender Information Value Date Recorded Sex Assigned at Female 09/27/2017 9:28 AM LINK TRAINER Gender Identity Female 09/27/2017 9:28 AM LINK TRAINER Sexual Orientation Straight 09/27/2017 9: 28 AM LINK TRAINER documented as of this encounter Last Filed [...] in this encounter H&P Notes * Brian Markham, Dolores., P.A. - 01/23/2024 3:00 PM CDT SUBJECTIVE [...] P.A.-C. LAB MICROBIOLO GY - BLOOD ORDERABLES [facility] [address] [place] [address], [facility] in [address] [address] * Chlamydia / Gonorrhoeae Amplified RNA (01/23/2024 [...] P.A.-C. LAB MICROBIOLO GY - GENERAL ORDERABLES [facility] [address] [place] [address], [facility] [place] [facility] [address] [address] * ThinPrep Screen HPV Reflex (01/23/2024 3:18 [...] PM CDT 01/25/2024 9:41 AM CDT Brian L Roethler P.A.-C. LAB PAP PATHDX ORDERABLES [facility] [address] [place] [address], [place] [facility] [address] [facility] [address] [place] [address] documented in this encounter Visit Diagnoses Diagnosis General Medical Examination Adult- Primary Pap Smear Examination Screening For Venereal Disease Anxiety documented in this encounter Additional Health Concerns Assessment Noted Time PHQ-9 Depression Total Score: 7 01/23/20 24 2:47 PM CDT documented as of this encounter Care Teams Director Informatics Relationship Specialty Start Date End Date Brian Makrham P.A.-C. PCP - General 01/04/17 documented as of this encounter
--- OUTSIDE RECORDS SUMMARY | 2024-05-01 14:48 | XMS_ITS | Referral Summary ---
Author Organization [facility] Address [address] [place] [address] Care Team Providers Care Communications Executive Name Role Phone Brian Markham P.A.-C. Primary Care Provider Source Comments Patient records contain information from all sites at [facility]. For routine questions regarding patient records, call [phone] during business hours, M-F 8:00 AM - 5:00 PM Central Time. Record requests for emergency care only can be directed to [phone] at any time.[facility] Encounters Date Type Department Care Team Description 04/27/2024 5:42 PM CDT - 04/27/2024 9:09 PM CDT Emergency [place] [facility] [address] [place] [phone] Becca Maynard, P.A.-C., P.A., M.S. Incomplete Spontaneous (HCC) (Primary Dx); Acute Cystitis Without Hematuria Discharge Disposition: Home or Self Care 02/29/2024 10:15 AM CDT Nurse Only Department of Family Medicine, [facility], in [address] [phone] Marie Wells, L.P.N. Nurse Visit from Last 3 Months Allergies Active Allergy Reactions Criticality Noted Date Comments Lactulose Other (see comments) 10/19/2016 Please Verify & complete Reaction & Severity bradshaw! Medications Medication Sig Dispensed Refills Start Date End Date Status propranoloL (INDERAL) 40 mg tablet Take 1 tablet (40 mg total) by mouth 3 (three) times a day as needed (anxiety). 30 tablet 11 08/22/2023 08/21/2024 Active Additional Information Patient not taking.Reported on 04/27/2024 naphazo HCl-hpm-ps 80-Zn sulf (Clear Eyes Complete) 0.025-0.2-0.5 % drops Administer 1 drop into both eyes as needed. 3 x per week for dry eyes Active nitrofurantoin monohydrate (Macrobid) 100 mg capsule Take 100 mg by mouth 2 (two) times a day. Active Active Problems Problem Noted Date Diagnosed Date Anxiety 08/22/2023 Keratosis Pilaris 10/20/2020 Comments Yes Resolved Problems Problem Noted Date Diagnosed Date [...] Moderate 10/08/2017 08/22/2023 Depressive Disorder 03/20/2017 06/14/20 Overview (04/15/2017): Depression\.br\per External Record info - [...] drink = 0.6 oz pur e alcohol) [facility] [employer] Answer Date Recorded In the past 12 months has e [employer], [employer], oil, or water [employer] threatened to shut off services in your [...] often do you attend chur ch or hoahaoism services? Never 06/03/2022 Do you belong to any clubs o r organizations such as mandaen groups, unions, fraternal or athletic groups, or [...] Answer Date Recorded PHQ-2 Score 2 01/23/2024 [facility] of Occupat ional Health - Occupational Stress [...] Sex Assigned at Female 09/27/2017 9:28 AM PIG CONVEYOR OPERATOR Gender Identity Female 09/27/2017 9:28 AM PIG CONVEYOR OPERATOR Sexual Orientation Straight 09/27/2017 9: 28 AM PIG CONVEYOR OPERATOR Last Filed Vital Signs Vital Sign Reading [...] CDT Height 158 cm (5' 2.21) 01/23/2024 2:40 PM CDT Body Mass Index 30.44 01/23/2024 2:40 PM CDT Plan of Treatment Not on file Medical Devices Explanted Type Area Quilting Machine Operator Device Identifier Shelf Expiration Date Model / Serial / Lot Subdermal Contraceptive Implant-05/11/20 21 Implanted:Qty: 1 on 05/11/2021 by Ron Myers Jr., M.D. Explanted:Qty: 1 on 04/07/2022 by Deedee Arias, DEBORAH, C.N.P. Subdermal Contraceptive Implant Left: Arm Merck 10/27/2023 / / [id number] Procedures Procedure Name Priority Date/Time Associated Diagnosis Comments US OB FIRST TRIMESTER AND TRANSVAGINAL RAD - Semiurgent (Fast; most ED patients; some inpatients) 04/27/2024 8:16 PM CDT HC URINALYSIS AUTO WO MICRO STAT 04/27/2024 7:41 PM CDT URINALYSIS WITH MICROSCOPIC IF INDICATED, U STAT 04/27/2024 7:41 PM CDT HUMAN CHORIONIC GONADOTROPIN (HCG), UNIQUE, STAT 04/27/2024 6:49 PM CDT CBC WITH DIFFERENTIAL, B STAT 04/27/2024 6:49 PM CDT HIV-1/-2 AG AND AB SCREEN, PLASMA Routine 01/23/2024 3:43 PM CDT Screening For Venereal Disease CHLAMYDIA/GONORRHOE AE AMPLIFIED RNA Routine 01/23/2024 3:18 PM CDT Screening For Venereal Disease THINPREP SCREEN HPV REFLEX Routine 01/23/2024 3:18 PM CDT Pap Smear Examination HCV AB SCRN , S Routine 07/14/2022 9:06 AM PIG CONVEYOR OPERATOR Encounter For Supervision Of Other Normal Unspecified Trimester (HCC) from Last 3 Months or Most Recently Relevant to Health Maintenance Results * US OB First Trimester and [...] 1 d, KUSHAL: 11/29/2024 INTRAUTERINE Pole: Abnormal, [place]-Rump Length: 14.3 mm Gestational Sac: Abnormal Yolk [...] w 1 d, KUSHAL:11/29/2024 INTRAUTERINE Pole: Abnormal, [place]-Rump Length: 14.3 mm Gestational Sac: Abnormal Yolk [...] M.S. IMG OB US PROCEDURES * (ABNORMAL) Urinalysis with Microscopic if Indicated [...] 8.0 04/27/2024 7:47 PM CDT [facility] Specific [place] 1.015 1.001 - 1.035 04/27/2024 7:47 PM CDT [facility] Urobilinogen 0.2 0.2 - 1.0 mg/dL 04/27/2024 7:47 PM CDT [facility] Urine (Urine, Midstream) 04/27/2024 7:41 PM CDT 04/27/2024 7:44 PM CDT Becca Maynard P.A.-C., P.A., M.S. LAB URI NE ORDERABLES [facility] [address] [place] [address], [facility] [place] [address] [place] [address], [place] [address] * (ABNORMAL) Microscopic Automated (04/27/2024 7:41 PM [...] P.A.-C., P.A., M.S. LAB URI NE ORDERABLES [facility] [address] [place] [address], [facility] [place] [address] [place] [address] * CBC with Differential, Blood (04/27/2024 6:49 [...] LAB BLO OD ADD-ON Performing Organization Address City/[facility]/ZIP Co de Phone Number [facility] [address] [place] [phone], [facility] in [address] [address] * (ABNORMAL) hCG (Human Chorionic Gonadotropin), Quantitative, (04/27/2024 6:49 PM CDT) HCG, Quantitative, , P 4384(H) <5 IU/L 04/27/2024 7:12 PM CDT [facility] Blood (Blood, Venous) 04/27/2024 6:49 PM CDT 04/27/2024 6:52 PM CDT Becca Maynard P.A.-C., P.A., M.S. LAB BLO OD ADD-ON Performing Organization Address City/[facility]/ZIP Co de Phone Number [facility] [address] [place] [address], [facility] [address] [address] * HIV-1/-2 Ag and Ab Screen, Plasma [...] P.A.-C. LAB MICROBIOLO GY - BLOOD ORDERABLES [facility] [address] [place] [address], [facility] in [address] [address] * ThinPrep Screen HPV Reflex (01/23/2024 3:18 [...] LAB PAP PATHDX ORDERABLES Performing Organization Address City/[facility] Co de Phone Number [facility] [address] [place] [address], [facility] HKCY [address] [place] [address] * Chlamydia / Gonorrhoeae Amplified RNA (01/23/2024 [...] GY - GENERAL ORDERABLES Performing Organization Address City/[facility] Co de Phone Number [facility] [address] [place] [address], [place] [facility] [address] [place] [address] * Hepatitis C Virus Antibody Screen (07/14/2022 9:06 AM PIG CONVEYOR OPERATOR) HCV Ab Scrn , S Negative Negative 07/15/2022 10:31 [address]IG CONVEYOR OPER[address] [facility] Comment:Vxdelm-te-lqcuff rat io is <1.00. Blood (Blood, Venous) 07/14/2022 9:06 AM PIG CONVEYOR OPERATOR 07/15/2022 7:39 AM PIG CONVEYOR OPERATOR Arnold Mclaughlin M.D. LAB MICROBIOLOGY - B LOOD ORDERABLES [facility] [address] [place] [address] [facility] [address] [place] [address] from Last 3 Months or Most Recently Relevant to Health Maintenance Care Teams Communications Executive Relationship Specialty Start Date End Date Brian Markham P.A.-C. PCP - General 01/04/17
--- OUTSIDE RECORDS SUMMARY | 2024-05-01 14:48 | XMS_ITS | Encounter Summary ---
Author Organization [facility] Address [address] [place] [address] Care Team Providers Care Lead Quality Technician Name Role Phone Brian Markham P.A.-C. Primary Care Provider Reason for Visit * Reason Comments Nurse Visit * Appointment Request (Routine) - Authorized Specialty Diagnoses / Procedures Referred By Estiven t Referred To Contact Family Medicine Referral ID Status Reason Start Date Expiration Date V isits Requested Visits Authorized [id number] Authorized 01/23/2024 01/22/2025 1 1 Encounter Details Date Type Department Care Team (Late st Contact Info) Description 02/29/2024 10:15 AM CDT Nurse Only Department of Family Medicine, [facility], in [place] [address] [place] [phone] Marie Wells, L.P.N. [address] [phone] Nurse Visit Social History Tobacco Use Types Packs/Day Years Used Date Smoking Tobacco: Former Cigarettes Smokeless Tobacco: Never Alcohol Use Standard Drinks/Week Comments Not Currently 3 (1 standard drink = 0.6 oz pur e alcohol) drinks 3 days week [facility] Utilities Answer Date Recorded In [...] How often do you attend chur or hindu services? Never 06/03/2022 Do you belong to [...] Answer Date Recorded PHQ-2 Score 2 01/23/2024 [facility] of Occupat ionme Health - Occupational Stress Questionnaire Answer Date [...] your living situation today? I have a [facility] place to live 11/15/2023 Education Answer Date Recorded What is the highest level of school you have completed or the highest degree you have received? 12th grade 06/03/2022 Sex and Gender Information Value Date Recorded Sex Assigned at Female 09/27/2017 9:28 AM MANAGER PLUMBING Gender Identity Female 09/27/2017 9:28 AM MANAGER PLUMBING Sexual Orientation Straight 09/27/2017 9: 28 AM MANAGER PLUMBING documented as of this encounter Plan of Treatment Not on file documented as of this encounter Visit Diagnoses Diagnosis Need Vaccine Immunization Hepatitis B- Primary documented in this encounter Additional Health Concerns Assessment Noted Time PHQ-9 Depression Total Score: 7 01/23/20 24 2:47 PM CDT documented as of this encounter Care Teams Lead Quality Technician Relationship Specialty Start Date End Date Brian Markham P.A.-C. PCP - General 01/04/17 documented as of this encounter
--- OUTSIDE RECORDS SUMMARY | 2024-05-01 14:48 | XMS_ITS | Clinical Summary ---
Author Organization [facility] Address [address] [place] [address] Care Team Providers Care Meter Shop Supervisor Name Role Phone Brian Markham P.A.-C. Primary Care Provider Source Comments Patient records contain information from all sites at [facility]. For routine questions regarding patient records, call [phone] during business hours, M-F 8:00 AM - 5:00 PM Central Time. Record requests for emergency care only can be directed to [phone] at any time.[facility] Allergies Active Allergy Reactions Criticality [...] CDT - 04/27/2024 9:09 PM CDT Emergency [place] [facility] [address] [place] [phone] Becca Maynard P.A.-C., P.A., M.S. Incomplete Spontaneous (HCC) (Primary Dx); Acute Cystitis Without Hematuria Discharge Disposition: Home or Self Care 02/29/2024 10:15 AM CDT Nurse Only Department of Family Medicine, [facility], in [address] [phone] Marie Wells, L.P.N. Nurse Visit from Last 3 Months Immunizations Name Administration [...] drink = 0.6 oz pur e alcohol) [facility] [employer] Answer Date Recorded In the past 12 months has e [employer], [employer], oil, or water [employer] threatened to shut off services in your [...] often do you attend chur ch or restorationist services? Never 06/03/2022 Do you belong to any clubs o r organizations such as taoism groups, unions, fraternal or athletic groups, or [...] Answer Date Recorded PHQ-2 Score 2 01/23/2024 [facility] of Occupat ional Health - Occupational Stress [...] Sex Assigned at Female 09/27/2017 9:28 AM FIRST BEATER Gender Identity Female 09/27/2017 9:28 AM FIRST BEATER Sexual Orientation Straight 09/27/2017 9: 28 AM FIRST BEATER Last Filed Vital Signs Vital Sign Reading [...] 12/06/2032 12/06/2022, 11/21/2021, 05/12/2016, Additional history exists RSV vaccine - (32-36 weeks) or 60+ years (1 - 1-dose 75+ series) 01/18/2071 HPV Vaccines Completed 06/14/2020, 07/24, 05/29/2018 Hepatitis [...] this topic Medical Devices Explanted Type Area Machine Clothing Worker Device Identifier Shelf Expiration Date Model / Serial / Lot Subdermal Contraceptive Implant-05/11/20 21 Implanted:Qty: 1 on 05/11/2021 by Ron Myers Jr., M.D. Explanted:Qty: 1 on 04/07/2022 by Deedee Arias APRN, C.N.P. Subdermal Contraceptive Implant Left: Arm Merck 10/27/2023 / / [id number] Procedures Procedure Name Priority Date/Time Associated Diagnosis [...] SCRN , S Routine 07/14/2022 9:06 AM FIRST BEATER Encounter For Supervision Of Other Normal Unspecified [...] 1 d, KUSHAL: 11/29/2024 INTRAUTERINE Pole: Abnormal, [place]-Rump Length: 14.3 mm Gestational Sac: Abnormal Yolk [...] w 1 d, KUSHAL:11/29/2024 INTRAUTERINE Pole: Abnormal, [place]-Rump Length: 14.3 mm Gestational Sac: Abnormal Yolk [...] 8.0 04/27/2024 7:47 PM CDT [facility] Specific [place] 1.015 1.001 - 1.035 04/27/2024 7:47 PM CDT [facility] Urobilinogen 0.2 0.2 - 1.0 mg/dL 04/27/2024 7:47 PM CDT [facility] Urine (Urine, Midstream) 04/27/2024 7:41 PM CDT 04/27/2024 7:44 PM CDT Becca Maynard P.A.-C., P.A., M.S. LAB URI NE ORDERABLES Performing Organization Address [facility] de Phone Number [facility] [address] [place] [address], [facility] RDWG [address] [address] * (ABNORMAL) Microscopic Automated (04/27/2024 7:41 PM [...] LAB URI NE ORDERABLES Performing Organization Address [facility] de Phone Number [facility] [address] [place] [address], [facility] RDWG [place] [address] [place] [address] * CBC with Differential, Blood (04/27/2024 6:49 [...] LAB BLO OD ADD-ON Performing Organization Address City/[facility] Co de Phone Number [facility] [address] [place] [address], [facility] [place] [address] * (ABNORMAL) hCG (Human Chorionic Gonadotropin), Quantitative, (04/27/2024 6:49 PM CDT) HCG, Quantitative, , P 4384(H) <5 IU/L 04/27/2024 7:12 PM CDT [facility] Blood (Blood, Venous) 04/27/2024 6:49 PM CDT 04/27/2024 6:52 PM CDT Becca Maynard P.A.-C., P.A., M.S. LAB BLO OD ADD-ON Performing Organization Address [facility] Co de Phone Number [facility] [address] [place] [address], [facility] in [address] [address] * HIV-1/-2 Ag and Ab Screen, Plasma [...] P.A.-C. LAB MICROBIOLO GY - BLOOD ORDERABLES [facility] [address] [place] [address], [facility] [place] [address] * ThinPrep Screen HPV Reflex (01/23/2024 3:18 [...] Brian Markham P.A.-C. LAB PAP PATHDX ORDERABLES [facility] [address] [place] [address], [place] [facility] [address] [facility] [address] [place] [address] * Chlamydia / Gonorrhoeae Amplified RNA (01/23/2024 [...] GY - GENERAL ORDERABLES Performing Organization Address City/[facility] Co de Phone Number [facility] [address] [place] [address], [place] [facility] [address] [facility] [address] [place] [address] * Hepatitis C Virus Antibody Screen (07/14/2022 9:06 AM FIRST BEATER) HCV Ab Scrn , S Negative Negative 07/15/2022 10:31 AM FIRST BEATER [facility] Comment:Vgotkp-pf-potimb rat io is <1.00. Blood (Blood, Venous) 07/14/2022 9:06 AM FIRST BEATER 07/15/2022 7:39 AM FIRST BEATER Arnold Mclaughlin M.D. LAB MICROBIOLOGY - B LOOD ORDERABLES [facility] [address] [place] [address] [facility] [address] [place] [address] from Last 3 Months or Most Recently Relevant to Health Maintenance Care Teams Meter Shop Supervisor Relationship Specialty Start Date End Date Brian Markham P.A.-C. PCP - General 01/04/17
== END 2024-05-01 14:45 | disposition home or self-care (01) ==
LOC: NFLDREF 14:46
PROVIDERS: PCP Physician Assistant; Visit Provider Advanced Practice Midwife
DX: Z34.91 Encounter for supervision of normal pregnancy, unspecified, first trimester (principal); Z3A.09 9 weeks gestation of pregnancy
CPT/HCPCS: 84702

== ENCOUNTER 2024-05-09 16:06 | Outpatient (CLI) | payer BC, SELFPAY ==
--- OUTSIDE RECORDS SUMMARY | 2024-05-13 15:03 | XMS_ITS | Clinical Summary ---
Author Organization [facility] Address [address] [place] [address] Care Team Providers Care Application Development Specialist Name Role Phone Brian Markham P.A.-C. Primary Care Provider Source Comments Patient records contain information from all sites at [facility]. For routine questions regarding patient records, call [phone] during business hours, M-F 8:00 AM - 5:00 PM Central Time. Record requests for emergency care only can be directed to [phone] at any time.[facility] Allergies Active Allergy Reactions Criticality Noted Date Comments Lactulose Other (see comments) 10/19/2016 Please Verify & complete Reaction & Severity bradshaw! Medications * This document contains information received from the source organization and may not represent a complete record from that organization. propranoloL (INDERAL) 40 mg tablet Take 1 tablet (40 mg total) by mouth 3 (three) times a day as needed (anxiety). 30 tablet 11 4 08/21/19 25 Active Additional Information Patient not taking.Reported on [...] CDT - 04/27/2024 9:09 PM CDT Emergency [place] [facility] [address] [place] [phone] Becca Maynard P.A.-C., P.A., M.S. Incomplete Spontaneous (HCC) (Primary Dx); Acute Cystitis Without Hematuria Discharge Disposition: Home or Self Care 02/29/2024 10:15 AM CDT Nurse Only Department of Family Medicine, [facility], in [address] [phone] Marie Wells, L.P.N. Nurse Visit from Last 3 Months Immunizations Name Administration Dates Next Due 9vHPV 06/14/2020,08/16/2018,05/29/2018 HepB Adult (HEPLISAV-B) 02/29/2024,01/23/2024 Influenza, Unspecified 05/12/2016 MMR 02/16/2023,07/01/2016 SARS-COV-2 (COVID-19) - PFIZ ER (Discontinued)(12 years or older) 08/05/2021,07/11/2021 Tdap 12/06/2022, 2,05/12/2016,2008 influenza vaccine quad (FLUZONE/FLUARIX) (6 months and older)(PF) 05/11/2021,06/14/2020,05/21/2019,2015 Social History Tobacco Use Types Packs/Day Years Used Date Smoking Tobacco: Former Cigarettes Smokeless Tobacco: Never Tobacco Cessation:Counseling Given: Not Answered Alcohol Use Standard Drinks/Week Comments Not Currently 3 (1 standard drink = 0.6 oz pur e alcohol) [facility] Purpleities Answer Date Recorded In the past 12 months has e [employer], gas, oil, or water [employer] threatened to shut off services in your [...] often do you attend chur ch or denominational services? Never 06/03/2022 Do you belong to any clubs o r organizations such as restorationist groups, unions, fraternal or athletic groups, or [...] Answer Date Recorded PHQ-2 Score 2 01/23/2024 [facility] of Occupat ional [facility] - Occupational Stress Questionnaire Answer Date [...] your living situation today? I have a [facility] place to live 11/15/2023 Education Answer Date Recorded What is the highest level of school you have completed or the highest degree you have received? 12th grade 06/03/2022 Comments Yes Sex and Gender Information Value Date Recorded Sex Assigned at Female 09/27/2017 9:28 AM CHEMISTRY TEACHER Legal Sex Female 4:10 PM CHEMISTRY TEACHER Gender Identity Female 09/27/2017 9:28 AM CHEMISTRY TEACHER Sexual Orientation Straight 09/27/2017 9: 28 AM CHEMISTRY TEACHER Last Filed Vital Signs Vital Sign Reading [...] this topic Medical Devices Explanted Type Area Shake Feeder Device Identifier Shelf Expiration Date Model / Serial / Lot Subdermal Contraceptive Implant-05/11/20 21 Implanted:Qty: 1 on 05/11/2021 by Ron Myers Jr., M.D. Explanted:Qty: 1 on 04/07/2022 by Deedee Arias, DEBORAH, C.N.P. Subdermal Contraceptive Implant Left: Arm Merck 10/27/2023 / / [id number] Procedures Procedure Name Priority Date/Time Associated Diagnosis [...] SCRN , S Routine 07/14/2022 9:06 AM CHEMISTRY TEACHER Encounter For Supervision Of Other Normal Unspecified [...] 1 d, KUSHAL: 11/29/2024 INTRAUTERINE Pole: Abnormal, [place]-Rump Length: 14.3 mm Gestational Sac: Abnormal Yolk [...] w 1 d, KUSHAL:11/29/2024 INTRAUTERINE Pole: Abnormal, [place]-Rump Length: 14.3 mm Gestational Sac: Abnormal Yolk [...] negative fordetectable cardiac activity, continued clinical follow-uprecommended. us Becca Maynard P.A.-C., P.A., M.S. IMG OB US CORI SOLARES Final Result * (ABNORMAL) Urinalysis with Microscopic if Indicated [...] 8.0 04/27/2024 7:47 PM CDT RDW[facility] Specific [place] 1.015 1.001 - 1.035 04/27/2024 7:47 PM CDT R[facility] Urobilinogen 0.2 0.2 - 1.0 mg/dL 04/27/2024 7:47 PM CDT R[facility] Urine (Urine, Midstream) 04/27/2024 7:41 PM CDT 04/27/2024 7:44 PM CDT Becca Maynard P.A.-C., P.A., M.S. LAB URINE ORDER EMILY Final Result [facility] [address] [place] [address], [facility] RDWG [facility] in [place] [address] [place] [phone] * (ABNORMAL) Microscopic Automated (04/27/2024 7:41 PM [...] CDT Becca Maynard P.A.-C., P.A., M.S. LAB URINE ORDER EMILY Final Result [facility] [address] [place] [address], [facility] RDWG [facility] [place] [address] [place] [address] * CBC with Differential, Blood (04/27/2024 6:49 [...] CDT Becca Maynard P.A.-C., P.A., M.S. LAB BLOOD ADD-O N Final Result [facility] [address] [facility] [place] [address], [facility] RDWG [facility] in [address] [address] * (ABNORMAL) hCG (Human Chorionic Gonadotropin), Quantitative, (04/27/2024 6:49 PM CDT) HCG, Quantitative, , P 4384(H) <5 IU/L 04/27/2024 7:12 PM CDT R[facility] Blood (Blood, Venous) 04/27/2024 6:49 PM CDT 04/27/2024 6:52 PM CDT Becca Maynard P.A.-C., P.A., M.S. LAB BLOOD ADD-O N Final Result Performing Organization Address City/[facility]/ZIP Co de Phone Number [facility] [place] [address], [facility] [place] [address] [place] [phone] * HIV-1/-2 Ag and Ab Screen, Plasma [...] 3:43 PM CDT 01/24/2024 2:34 PM CDT us Brian Markham P.A.-C. LAB MICROBIOLOGY - BLO OD ORDERABLES Final Result [facility] [address] [place] [address], [facility] WSCA [facility] [place] [address] * ThinPrep Screen HPV Reflex (01/23/2024 3:18 [...] CDT Brian Markham P.A.-C. LAB PAP PATHDX ORDERAB LES Final Result Performing Organization Address [facility] Co de Phone Number [facility] [address] [place] [address], [facility] HKCY [address] [address] * Chlamydia / Gonorrhoeae Amplified RNA (01/23/2024 [...] 2:11 PM CDT Brian Markham P.A.-C. LAB MICROBIOLOGY - GEN ERAL ORDERABLES Final Result Performing Organization Address City/[facility] Co de Phone Number [facility] [address] [place] [address], [facility] MKTO [address] [facility] [address] [place] [address] * Hepatitis C Virus Antibody Screen (07/14/2022 9:06 AM CHEMISTRY TEACHER) Pathologist [facility] HCV Ab Scrn , S Negative Negative 07/15/2022 10:31 AM CHEMISTRY TEACHER [facility] Comment:Nbpdrv-yn-oajyrk rat io is <1.00. Blood (Blood, Venous) 07/14/2022 9:06 AM CHEMISTRY TEACHER 07/15/2022 7:39 AM CHEMISTRY TEACHER Arnold Mclaughlin M.D. LAB MICROBIOLOGY - BLOOD ERICK PETER Final Result [facility] [address] [place] [address] [facility] [address] [place] [address] from Last 3 Months or Most Recently Relevant to Health Maintenance Insurance [facility] CARE Care Teams Application Development Specialist Relationship Specialty Start Date End Date Brian Markham P.A.-C. PCP - General 01/04/17
--- OUTSIDE RECORDS SUMMARY | 2024-05-13 15:04 | XMS_ITS | Encounter Summary ---
Author Organization [facility] Address [address] [place] [address] Care Team Providers Care Frame Runner Name Role Phone Brian Markham P.A.-C. Primary Care Provider Reason for Visit * Reason Comments Nurse Visit * Appointment Request (Routine) - Authorized Specialty Diagnoses / Procedures Referred By Estiven t Referred To Contact Family Medicine Referral ID Status Reason Start Date Expiration Date V isits Requested Visits Authorized [id number] Authorized 01/23/2024 01/22/2025 1 1 Encounter Details Date Type Department Care Team (Late st Contact Info) Description 02/29/2024 10:15 AM CDT Nurse Only Department of Family Medicine, [facility], in [place] [address] [place] [phone] Marie Wells, L.P.N. [address] [phone] Nurse Visit Social History Tobacco Use Types Packs/Day Years Used Date Smoking Tobacco: Former Cigarettes Smokeless Tobacco: Never Alcohol Use Standard Drinks/Week Comments Not Currently 3 (1 standard drink = 0.6 oz pur e alcohol) drinks 3 days week [facility] Utilities Answer Date Recorded In the [...] How often do you attend chur or latter day services? Never 06/03/2022 Do you belong to any clubs o r organizations such as roman catholic groups, unions, fraternal or athletic groups, or [...] Date Recorded PHQ-2 Score 2 01/23/2024 [facility] of Occupat ionmi Health - Occupational Stress Questionnaire Answer Date [...] your living situation today? I have a [facility] place to live 11/15/2023 Education Answer Date Recorded What is the highest level of school you have completed or the highest degree you have received? 12th grade 06/03/2022 Comments No Sex and Gender Information Value Date Recorded Sex Assigned at Female 09/27/2017 9:28 AM AS400 ANALYST Legal Sex Female 4:10 PM AS400 ANALYST Gender Identity Female 09/27/2017 9:28 AM AS400 ANALYST Sexual Orientation Straight 09/27/2017 9: 28 AM AS400 ANALYST documented as of this encounter Plan of Treatment Not on file documented as of this encounter Visit Diagnoses Diagnosis Need Vaccine Immunization Hepatitis B- Primary documented in this encounter Additional Health Concerns Assessment Noted Time PHQ-9 Depression Total Score: 7 01/23/20 24 2:47 PM CDT documented as of this encounter Care Teams Frame Runner Relationship Specialty Start Date End Date Brian Markham P.A.-C. PCP - General 01/04/17 documented as of this encounter
--- OUTSIDE RECORDS SUMMARY | 2024-05-13 15:04 | XMS_ITS | Encounter Summary ---
Author Organization [facility] Address [address] [place] [address] Care Team Providers Care Geographic Information Systems Director Name Role Phone Brian Markham P.A.-C. Primary Care Provider Reason for Visit * Reason Comments Vaginal Bleeding Patient stated she i s about 9 weeks . Started bleeding today. Has history of miscarriage. Encounter Details Date Type Department Care Team (Late st Contact Info) Description 04/27/2024 5:42 PM CDT - 04/27/2024 9:09 PM CDT Emergency [place] [facility] [address] [place] [phone] Becca Maynard, P.Raphael.-C., P.A., M.S. [address] [place] [address] Incomplete Spontaneous (HCC) (Primary Dx); Acute Cystitis Without Hematuria Discharge Disposition: Home or Self Care Social History Tobacco Use Types Packs/Day Years Used Date Smoking Tobacco: Former Cigarettes Smokeless Tobacco: Never Alcohol Use Standard Drinks/Week Comments Not Currently 3 (1 standard drink = 0.6 oz pur e alcohol) [facility] Utilities Answer Date Recorded In the past [...] How often do you attend chur or rastafarian services? Never 06/03/2022 Do you belong to any clubs o r organizations such as restorationism groups, unions, fraternal or athletic groups, or [...] Answer Date Recorded PHQ-2 Score 2 01/23/2024 [facility] of Occupat ionok Health - Occupational Stress Questionnaire Answer Date [...] your living situation today? I have a [facility] place to live 11/15/2023 Education Answer Date Recorded What is the highest level of school you have completed or the highest degree you have received? 12th grade 06/03/2022 Comments Yes Sex and Gender Information Value Date Recorded Sex Assigned at Female 09/27/2017 9:28 AM VIDEO NEWS EDITOR Legal Sex Female 4:10 PM VIDEO NEWS EDITOR Gender Identity Female 09/27/2017 9:28 AM VIDEO NEWS EDITOR Sexual Orientation Straight 09/27/2017 9: 28 AM VIDEO NEWS EDITOR documented as of this encounter Last Filed [...] Care Everywhere. * Urinary Tract Infection Adult (Lao) * Miscarriage Tdyh-id-Nitu (Lao) documented in this encounter Medications at Time of Discharge nitrofurantoin monohydrate (Macrobid) 100 mg capsule Take 100 mg by mouth 2 (two) times a day. naphazo HCl-hpm-ps 80-Zn sulf (Clear Eyes Complete) 0.025-0.2-0.5 % drops Administer 1 drop into both eyes as needed. 3 x per week for dry eyes propranoloL (INDERAL) 40 mg tablet Take 1 tablet (40 mg total) by mouth 3 (three) times a day as needed (anxiety). 30 tablet 11 08/22/2023 documented as of this encounter ED Notes * Becca Maynard P.A.-C., P.Raphael., M.S. - 04/27/2024 6:04 PM CDT CHIEF [...] 0 - No pain Vitals: 04/27/24 1750 04/27/242029 BP: 133/81 114/71 BP Location: Right arm [...] patient has established care for OB in [place]. She was evaluated last Sunday (six days [...] Hematuria Becca Maynard P.A.-C., P.A., M.S. 04/27/24 7113 documented in this encounter Plan of Treatment [...] 1 d, KUSHAL: 11/29/2024 INTRAUTERINE Pole: Abnormal, [place]-Rump Length: 14.3 mm Gestational Sac: Abnormal Yolk [...] w 1 d, KUSHAL:11/29/2024 INTRAUTERINE Pole: Abnormal, [place]-Rump Length: 14.3 mm Gestational Sac: Abnormal Yolk [...] US CORI SOLARES Final Result * (ABNORMAL) Microscopic Automated (04/27/2024 7:41 PM [...] 7:41 PM CDT 04/27/2024 7:44 PM CDT us Becca Maynard P.A.-C., P.A., M.S. LAB URINE ORDER EMILY Final Result [facility] [address] [place] [address], [facility] RDWG [facility] in [place] [address] [place] [phone] * (ABNORMAL) Urinalysis with Microscopic if Indicated [...] 8.0 04/27/2024 7:47 PM CDT RDW[facility] Specific [place] 1.015 1.001 - 1.035 04/27/2024 7:47 PM CDT RDWG Urobilinogen 0.2 0.2 - 1.0 mg/dL 04/27/2024 7:47 PM CDT RDW[facility] Urine (Urine, Midstream) 04/27/2024 7:41 PM CDT 04/27/2024 7:44 PM CDT Becca Maynard P.A.-C., P.A., M.S. LAB URINE ORDER EMILY Final Result Performing Organization Address [facility] Co de Phone Number [facility] [address] [place] [address], [facility] in [address] [address] * (ABNORMAL) hCG (Human Chorionic Gonadotropin), Quantitative, (04/27/2024 6:49 PM CDT) Pathologist [facility] HCG, Quantitative, , P 4384(H) <5 IU/L 04/27/2024 7:12 PM CDT RDWG Blood (Blood, Venous) 04/27/2024 6:49 PM CDT 04/27/2024 6:52 PM CDT Becca Maynard P.A.-C., P.A., M.S. LAB BLOOD ADD-O N Final Result Performing Organization Address [facility] Co de Phone Number [facility] [address] [place] [address], [facility] RDWG [facility] in [place] [address] [place] [phone] * CBC with Differential, Blood (04/27/2024 6:49 [...] 6:49 PM CDT 04/27/2024 6:52 PM CDT us Becca Maynard P.A.-C., P.A., M.S. LAB BLOOD ADD-O N Final Result [facility] [address] [place] [address], [facility] RDWG [facility] in [place] [address] [place] [address] documented in this encounter Visit Diagnoses Diagnosis Incomplete Spontaneous (HCC)- Primary Acute Cystitis Without Hematuria documented in this encounter Additional Health Concerns Assessment Noted Time PHQ-9 Depression Total Score: 7 01/23/20 24 2:47 PM CDT documented as of this encounter Care Teams Geographic Information Systems Director Relationship Specialty Start Date End Date Brian Markham P.A.-C. PCP - General 01/04/17 documented as of this encounter
--- OUTSIDE RECORDS SUMMARY | 2024-05-13 15:04 | XMS_ITS | Referral Summary ---
Author Organization [facility] Address [address] [place] [address] Care Team Providers Care Christian Science Nurse Name Role Phone Brian Markham P.A.-C. Primary Care Provider Source Comments Patient records contain information from all sites at [facility]. For routine questions regarding patient records, call [phone] during business hours, M-F 8:00 AM - 5:00 PM Central Time. Record requests for emergency care only can be directed to [phone] at any time.[facility] Encounters Date Type Department Care Team Description 04/27/2024 5:42 PM CDT - 04/27/2024 9:09 PM CDT Emergency [place] [facility] [address] [place] [phone] Becca Maynard, P.A.-C., P.A., M.S. Incomplete Spontaneous (HCC) (Primary Dx); Acute Cystitis Without Hematuria Discharge Disposition: Home or Self Care 02/29/2024 10:15 AM CDT Nurse Only Department of Family Medicine, [facility], in [address] [phone] Marie Wells, L.P.N. Nurse Visit from Last [...] drink = 0.6 oz pur e alcohol) [facility] [place] [employer] Answer Date Recorded In the past 12 months has e [employer], gas, oil, or water [employer] threatened to shut off services in your [...] any clubs o r organizations such as bahai groups, unions, fraternal or athletic groups, or [...] Answer Date Recorded PHQ-2 Score 2 01/23/2024 [facility] of Occupat ional [facility] - Occupational Stress Questionnaire Answer [...] your living situation today? I have a [facility] place to live 11/15/2023 Education Answer Date Recorded What is the highest level of school you have completed or the highest degree you have received? 12th grade 06/03/2022 Comments Yes Sex and Gender Information Value Date Recorded Sex Assigned at Female 09/27/2017 9:28 AM SOLAR DESIGNER Legal Sex Female 4:10 PM SOLAR DESIGNER Gender Identity Female 09/27/2017 9:28 AM SOLAR DESIGNER Sexual Orientation Straight 09/27/2017 9: 28 AM SOLAR DESIGNER Last Filed Vital Signs Vital Sign Reading [...] on file Medical Devices Explanted Type Area Manager Bench Device Identifier Shelf Expiration Date Model / Serial / Lot Subdermal Contraceptive Implant-05/11/20 21 Implanted:Qty: 1 on 05/11/2021 by Ron Myers Jr., M.D. Explanted:Qty: 1 on 04/07/2022 by Deedee Arias, DEBORAH, C.N.P. Subdermal Contraceptive Implant Left: Arm Wade 10/27/2023 / / [id number] Procedures Procedure Name Priority Date/Time Associated Diagnosis [...] , S Routine 07/14/2022 9:06 AM SOLAR DESIGNER Encounter For Supervision Of Other Normal Unspecified [...] 1 d, KUSHAL: 11/29/2024 INTRAUTERINE Pole: Abnormal, [place]-Rump Length: 14.3 mm Gestational Sac: Abnormal Yolk [...] w 1 d, KUSHAL:11/29/2024 INTRAUTERINE Pole: Abnormal, [place]-Rump Length: 14.3 mm Gestational Sac: Abnormal Yolk [...] 8.0 04/27/2024 7:47 PM CDT RDW[facility] Specific [place] 1.015 1.001 - 1.035 04/27/2024 7:47 PM CDT RDWG Urobilinogen 0.2 0.2 - 1.0 mg/dL 04/27/2024 7:47 PM CDT RDWG Urine (Urine, Midstream) 04/27/2024 7:41 PM CDT 04/27/2024 7:44 PM CDT us Becca Maynard P.A.-C., P.A., M.S. LAB URINE ORDER EMILY Final Result [facility] [address] [place] [address], [facility] RDWG [facility] in [place] [address] [place] [phone] * (ABNORMAL) Microscopic Automated (04/27/2024 7:41 PM [...] M.S. LAB URINE ORDER EMILY Final Result [facility] [address] [place] [address], [facility] RDWG [facility] [place] [address] [place] [address] * CBC with Differential, Blood (04/27/2024 6:49 [...] ADD-O N Final Result Performing Organization Address [facility] Co de Phone Number [facility] [address] [place] [address], [place] [address], [facility] RDWG [facility] in [address] [place] [address] * (ABNORMAL) hCG (Human Chorionic Gonadotropin), Quantitative, (04/27/2024 6:49 PM CDT) Pathologist [facility] HCG, Quantitative, , P 4384(H) <5 IU/L 04/27/2024 7:12 PM CDT RDWG Blood (Blood, Venous) 04/27/2024 6:49 PM CDT 04/27/2024 6:52 PM CDT Becca Maynard P.A.-C., P.A., M.S. LAB BLOOD ADD-O N Final Result [facility] [address] [place] [address], [place] [address], [facility] RDWG [facility] in [address] [place] [address] * HIV-1/-2 Ag and Ab Screen, Plasma [...] MICROBIOLOGY - BLO OD ORDERABLES Final Result [facility] [address] [place] [address], [facility] in [address] [address] * ThinPrep Screen HPV Reflex (01/23/2024 3:18 [...] 3:18 PM CDT 01/25/2024 9:41 AM CDT us Brian Markham P.A.-C. LAB PAP PATHDX ORDERAB LES Final Result [facility] [address] [place] [address], [facility] HKCY [address] [place] [address] * Chlamydia / Gonorrhoeae Amplified RNA (01/23/2024 [...] 3:18 PM CDT 01/25/2024 2:11 PM CDT us Brian L Roethler P.A.-C. LAB MICROBIOLOGY - GEN ERAL ORDERABLES Final Result [facility] [address] [place] [address], [place] MKTO [address] [facility] [address] [place] [address] * Hepatitis C Virus Antibody Screen (07/14/2022 9:06 AM SOLAR DESIGNER) HCV Ab Scrn , S Negative Negative 07/15/2022 10:31 AM SOLAR DESIGNER [facility] Comment:Gsawsk-ge-ltnokb rat io is <1.00. Blood (Blood, Venous) 07/14/2022 9:06 AM SOLAR DESIGNER 07/15/2022 7:39 AM SOLAR DESIGNER us Arnold Mclaughlin M.D. LAB MICROBIOLOGY - BLOOD ORDE RABTIFFANIE Final Result [facility] [address] [place] [address] [facility] [address] [place] [address] from Last 3 Months or Most Recently Relevant to Health Maintenance Insurance [facility] CARE Care Teams Christian Science Nurse Relationship Specialty Start Date End Date Brian Markham P.A.-C. PCP - General 01/04/17
--- OUTSIDE RECORDS SUMMARY | 2024-05-13 15:04 | XMS_ITS ---
Author Organization [facility] Address [address] [place] [address] Care Team Providers Care Felt Cementer Name Role Phone Unavailable Unavailable Unavailable Surgery Details Not on file Complications Check Surgery Details section. Procedure Estimated Blood Loss Check Surgery Details section. Procedure Findings Check Surgery Details section. Procedure Specimens Taken Check Surgery Details section.
== END 2024-05-09 16:07 | disposition home or self-care (01) ==
LOC: NFLDREF 05-13 15:02
PROVIDERS: PCP Physician Assistant; Referring Provider Physician Assistant; Visit Provider Obstetrics & Gynecology
DX: O03.9 Complete or unspecified spontaneous abortion without complication (principal)
CPT/HCPCS: 84702

== ENCOUNTER 2024-10-14 10:59 | Outpatient (CLI) | payer BC, SELFPAY ==
--- NOTE | 2024-10-14 11:15 | CRLHL7_ITS ---
For Patients: As a result of the Century Cures Act, medical imaging exams and procedure reports are released immediately into your electronic medical record. You may view this report before your referring provider. If you have questions, please contact your health care provider. INDICATION: First trimester dating and viability. TECHNIQUE: Ultrasound OB pelvis transabdominal and transvaginal. Real-time serna-scale imaging of the pelvis was performed. COMPARISON: None. FINDINGS: Intrauterine gestation: Single. heart activity: 177 bpm Sea Bright-rump length: 1.7 cm. Gestational sac mean diameter: 3 cm Estimated ultrasound age: 8 weeks 1 day. KUSHAL by ultrasound: 05/25/2025. Yolk sac: Normal. Perigestational hemorrhage: Small subchorionic hemorrhage measuring 1.9 x 1.8 x 0.7 cm.. Ovaries and adnexa: Normal in size bilaterally. Right corpus luteal cyst measuring up to 1.9 cm Suspicious pelvic fluid collections: None. IMPRESSION: 1. Single viable intrauterine measuring 8 weeks 1 day by ultrasound with KUSHAL of 05/25/2025. 2. Small subchorionic hemorrhage measuring up to 1.9 cm. Dictated by Nettie Cha MD @ 10/15/2024 11:18:45 AM (Electronically Signed)
== END 2024-10-14 11:00 | disposition home or self-care (01) ==
LOC: US 11:00
PROVIDERS: PCP Physician Assistant; Visit Provider Advanced Practice Midwife
DX: Z34.91 Encounter for supervision of normal pregnancy, unspecified, first trimester (principal); O20.9 Hemorrhage in early pregnancy, unspecified; Z3A.08 8 weeks gestation of pregnancy
CPT/HCPCS: 76817

== ENCOUNTER 2024-10-14 12:14 | Outpatient (CLI) | payer BC, SELFPAY | END 2024-10-14 12:15 | disposition home or self-care (01) | PROVIDERS: PCP Physician Assistant; Visit Provider Advanced Practice Midwife | DX: Z34.91 Encounter for supervision of normal pregnancy, unspecified, first trimester (principal); Z3A.08 8 weeks gestation of pregnancy | CPT/HCPCS: 83020; 83021; 85660; 86592; 86703; 86704; 86706; 86762; 86787; 86803; 86850; 86900; 86901; 87086; 87340 ==

== ENCOUNTER 2024-11-04 08:11 | Emergency (ER) | payer BC, SELFPAY ==
--- OUTSIDE RECORDS SUMMARY | 2024-11-04 08:14 | XMS_ITS | Encounter Summary ---
Author Organization [facility] Address [address] [place] [address] Care Team Providers Care Air Filler Name Role Phone Brian Markham P.A.-C. Primary Care Provider Encounter Details Date Type Department Care Team (Late st Contact Info) Description 10/03/2024 Clinical Communication Department of Obstetrics and Gynecology in [place], [place] [address] [place] [phone] Ghazala Bender M.D., Ph.D. [address] [place] [phone] Social History Tobacco Use Types Packs/Day Years Used Date Smoking Tobacco: Former Cigarettes Passive Smoke Exposure: Never Smokeless Tobacco: Never Alcohol Use Standard Drinks/Week Comments Not Currently 3 (1 standard drink = 0.6 oz pur e alcohol) [facility] Utilities Answer Date Recorded In the past 12 months has [facility] [employer], gas, oil, or water [employer] threatened to shut off services in your [...] How often do you attend chur or episcopal services? Never 06/03/2022 Do you belong to any clubs o r organizations such as episcopalian groups, unions, fraternal or athletic groups, or [...] PHQ-2 Answer Date Recorded PHQ-2 Score 2 08/18/2024 [facility] - Occupational Stress Questionnaire Answer Date [...] Recor ded PHQ-9 Total Score (max 27) 8 08/18 Nutrition Answer Date Recorded On average, how [...] your living situation today? I have a [facility] place to live 11/15/2023 Education Answer Date Recorded What is the highest level of school you have completed or the highest degree you have received? 12th grade 06/03/2022 Comments No Sex and Gender Information Value Date Recorded Sex Assigned at Female 09/27/2017 9:28 AM CLINICAL CONSULTANT Legal Sex Female 4:10 PM CLINICAL CONSULTANT Gender Identity Female 09/27/2017 9:28 AM CLINICAL CONSULTANT Sexual Orientation Straight 09/27/2017 9: 28 AM CLINICAL CONSULTANT documented as of this encounter Plan of Treatment Not on file documented as of this encounter Visit Diagnoses Not on filedocumented in this encounter Additional Health Concerns Assessment Noted Time PHQ-9 Depression Total Score: 8 08/18/19 25 1:59 PM CLINICAL CONSULTANT documented as of this encounter Care Teams Air Filler Relationship Specialty Start Date End Date Brian Markham P.A.-C. [address] [place] [phone] PCP - General 01/04/17 documented as of this encounter
--- OUTSIDE RECORDS SUMMARY | 2024-11-04 08:14 | XMS_ITS | Clinical Summary ---
Author Organization [facility] Address [address] [place] [id number] Care Team Providers Care Sheet Rock Layer Name Role Phone Brian Markham P.A.-C. Primary Care Provider Source Comments Patient records contain information from all sites at [facility]. For routine questions regarding patient records, call [phone] during business hours, M-F 8:00 AM - 5:00 PM Central Time. Record requests for emergency care only can be directed to [phone] at any time.[facility] Allergies Active Allergy Reactions Criticality Noted Date [...] as needed (anxiety). 30 tablet 11 4 Active naphazo HCl-hpm-ps 80-Zn sulf (Clear Eyes Complete) 0.025-0.2-0.5 % drops Administer 1 drop into both eyes as needed. 3 x per week for dry eyes Active acetaminophen (TylenoL) 500 mg tablet Take 500 mg by mouth every 6 (six) hours as needed for pain. Active buPROPion XL (Wellbutrin XL) 150 mg 24 hr tablet Take 1 tablet (150 mg total) by mouth every morning. 90 tablet 3 5 Active Active Problems Problem Noted Date Diagnosed Date Anxiety 08/22/2023 Keratosis Pilaris 10/20/2020 Persistent Depressive Disorder 03/20/2017 Overview (04/15/2017): Depression\.br\per External Record info - 03/14/2017 Resolved Problems Problem Noted Date Diagnosed Date [...] 08/22/2023 Depression Major Recurrent Moderate 10/08/2017 08/22/2023 Encounters Date Type Department Care Team Description 10/03/2024 Clinical Communication Department of Obstetrics and Gynecology in [address] [phone] Ghazala Bender M.D., Ph.D. 08/18/2024 2:30 PM TRANSPORTATION DESIGN ENGINEER Office Visit Department of Family Medicine, [facility], in [place] [address] [place] [address] Brian Markham, P.A.-C. Anxiety (Primary Dx); Persistent Depressive Disorder; Management Contraceptive from Last 3 Months Immunizations Immunization Administration Dates Next Due 9vHPV 06/14/2020,08/16/2018,05/29/2018 HepB Adult (HEPLISAV-B) 02/29/2024,01/23/2024 Influenza, Unspecified 05/12/2016 MMR 02/16/2023,07/01/2016 SARS-COV-2 (COVID-19) - PFIZ ER (Discontinued)(12 years or older) 08/05/2021,07/11/2021 Tdap 12/06/2022,,05/12/2016,2008 influenza vaccine quad (FLUZONE/FLUARIX) (6 months and older)(PF) 05/11/2021,06/14/2020,05/21/2019,2015 Social History Tobacco Use Types Packs/Day Years Used Date Smoking Tobacco: Former Cigarettes Passive Smoke Exposure: Never Smokeless Tobacco: Never Tobacco Cessation:Counseling Given: Not Answered Alcohol Use Standard Drinks/Week Comments Not Currently 3 (1 standard drink = 0.6 oz pur e alcohol) [facility] Superhumanities Answer Date Recorded In the past 12 months has e [employer], [employer], oil, or water [employer] threatened to shut off services in your [...] often do you attend chur ch or mosque services? Never 06/03/2022 Do you belong to any clubs o r organizations such as adventism groups, unions, fraternal or athletic groups, or [...] Answer Date Recorded PHQ-2 Score 2 08/18/2024 [facility] - Occupational [...] money to buy more. Never true 11/15/19 Within the past 12 months, t he [...] your living situation today? I have a [facility] place to live 11/15/2023 Education Answer Date Recorded What is the highest level of school you have completed or the highest degree you have received? 12th grade 06/03/2022 Comments No Sex and Gender Information Value Date Recorded Sex Assigned at Female 09/27/2017 9:28 AM TRANSPORTATION DESIGN ENGINEER Legal Sex Female 4:10 PM TRANSPORTATION DESIGN ENGINEER Gender Identity Female 09/27/2017 9:28 AM TRANSPORTATION DESIGN ENGINEER Sexual Orientation Straight 09/27/2017 9: 28 AM TRANSPORTATION DESIGN ENGINEER Last Filed Vital Signs Vital Sign Reading Time Taken Comments Blood Pressure 116/74 08/18/2024 2:02 PM TRANSPORTATION DESIGN ENGINEER ave rage Pulse 74 08/18/2024 2:02 PM TRANSPORTATION DESIGN ENGINEER Temperature 36.2 C (97.2 F) 08/18/2024 2:02 PM TRANSPORTATION DESIGN ENGINEER Respiratory Rate 16 08/18/2024 2:02 PM TRANSPORTATION DESIGN ENGINEER Oxygen Saturation 100% 04/27/2024 8:30 PM CDT Inhaled Oxygen Concentration - - Weight 79.3 kg (174 lb 13.2 oz) 08/18/2024 2:02 PM TRANSPORTATION DESIGN ENGINEER Height 157.1 cm (5' 1.85) 08/18/2024 2:02 PM CS T Body Mass Index 32.13 08/18/2024 2:02 PM TRANSPORTATION DESIGN ENGINEER Plan of Treatment Health Maintenance Due Date Last Done Comments COVID-19 Vaccine ( season) 2024 08/05/2021, 07/11/2021 Influenza Vaccine (#1) 2024 , 06/14/2020, 05/21/2019, Additional history exists Tobacco Cessation counseling 08/22/2024 08/22/2023 Depression Monitoring (PHQ-9) 12/16/2024 08/18/2024 Cervical/Vaginal Cancer Screening 01/22/2027 01/23/2024, 06/14/2020, 06/14/2020, Additional history exists DTaP,Tdap,and Td Vaccines (5 - Td or Tdap) 12/06/2032 12/06/2022, 11/21/2021, 05/12/2016, Additional history exists HPV Vaccines Completed 06/14/2020, 07/24, 05/29/2018 Hepatitis C Screening Completed 07/14/2022 Chlamydia and Gonorrhea Screening Discontinued 01/23/2024, 05/29/2018, 06/08/2015, Additional history exists HIV Screening Completed 01/23/2024, 06/23, 11/30/2015, Additional history exists Hepatitis B Vaccines Completed 02/29/2024, 01/23/20 24 Depression Monitoring (PHQ-9 for quality tracking) Completed 08/18/2024, 08/18/2024 IPV Vaccines Aged Out No longer eligi ble based on patient's age to complete this topic Pneumococcal vaccine (0-49 years) Aged Out No longer eligible based on patient's age to complete this topic Medical Devices Explanted Type Area Gasoline Attendant Device Identifier Shelf Expiration Date Model / Serial / Lot Subdermal Contraceptive Implant-05/11/20 21 Implanted:Qty: 1 on 05/11/2021 by Ron Myers Jr., M.D. Explanted:Qty: 1 on 04/07/2022 by Deedee Arias, DEBORAH, C.N.P. Subdermal Contraceptive Implant Left: Arm [facility] 10/27/2023 / / [id number] Procedures Procedure Name Priority Date/Time Associated Diagnosis Comments HIV-1/-2 AG AND AB SCREEN, PLASMA Routine 01/23/2024 3:43 PM CDT Screening For Venereal Disease CHLAMYDIA/GONORRHOE AE AMPLIFIED RNA Routine 01/23/2024 3:18 PM CDT Screening For Venereal Disease THINPREP SCREEN HPV REFLEX Routine 01/23/2024 3:18 PM CDT Pap Smear Examination HCV AB SCRN , S Routine 07/14/2022 9:06 AM TRANSPORTATION DESIGN ENGINEER Encounter For Supervision Of Other Normal Unspecified [...] MICROBIOLOGY - BLO OD ORDERABLES Final Result [facility] [address] [place] [phone], [facility] [place] [address] [place] [phone] * ThinPrep Screen HPV Reflex (01/23/2024 3:18 [...] 4:01 PM CDT [facility] Interpretation Cervical/Endocervi krishan (ThinPrep): Satisfactory for Evaluation Negative for Intraepithelial Lesion or Malignancy Shift in rogelio suggestive of bacterial vaginosis 01/30/2024 4:01 PM CDT [facility] Thin Prep Vial (Cervix/Endocerv ix) 01/23/2024 3:18 PM CDT 01/25/2024 9:41 AM CDT us Brian Markham P.A.-C. LAB PAP PATHDX ORDERAB LES Final Result Performing Organization Address City/[facility]/ZIP Co de Phone Number [facility] [address] [place] [address], [place] [facility] [address] [place] [phone] * Chlamydia / Gonorrhoeae Amplified RNA (01/23/2024 [...] PM CDT 01/25/2024 2:11 PM CDT us rBian Markham P.A.-C. LAB MICROBIOLOGY - GEN ERAL ORDERABLES Final Result Performing Organization Address City/[facility]/ZIP Co de Phone Number [facility] [address] [place] [phone] [place] [address] [place], [place] [id number] [place] [address] * Hepatitis C Virus Antibody Screen (07/14/2022 9:06 AM TRANSPORTATION DESIGN ENGINEER) HCV Ab Scrn , S Negative Negative 07/15/2022 10:31 AM TRANSPORTATION DESIGN ENGINEER [facility] Comment:Blmorv-go-uplvbq rat io is <1.00. Blood (Blood, Venous) 07/14/2022 9:06 AM TRANSPORTATION DESIGN ENGINEER 07/15/2022 7:39 AM TRANSPORTATION DESIGN ENGINEER Arnold Mclaughlin M.D. LAB MICROBIOLOGY - BLOOD ORDE BRITTANI Final Result [facility] [address] [place] [phone] [facility] [address] [place] [phone] from Last 3 Months or Most Recently Relevant to Health Maintenance Insurance [facility] Care Teams Sheet Rock Layer Relationship Specialty Start Date End Date Brian Markham P.A.-C. [address] [place] [phone] PCP - General 01/04/17
[2024-11-04 08:16] VITALS: BP 120/76; PULSE 79; RESP 16; TEMP 37; O2SAT 96; BMI 33.3
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
[2024-11-04] MEDS: LACTATED RINGERS 1000 ML 1,000 ML IV (08:58)
[2024-11-04] MEDS: ONDANSETRON 2 MG/ML inj 4 MG IVP (08:58)
--- OUTSIDE RECORDS SUMMARY | 2024-11-04 09:14 | XMS_ITS | Encounter Summary ---
Author Organization [facility] Address [address] [place] [address] Care Team Providers Care Doctor Of Dental Medicine Name Role Phone Brian Markham P.A.-C. Primary Care Provider Encounter Details Date Type Department Care Team (Late st Contact Info) Description 10/03/2024 Clinical Communication Department of Obstetrics and Gynecology in [place], [place] [address] [place] [phone] Ghazala Bender M.D., Ph.D. [address] [place] [phone] Social History Tobacco Use Types Packs/Day Years Used Date Smoking Tobacco: Former Cigarettes Passive Smoke Exposure: Never Smokeless Tobacco: Never Alcohol Use Standard Drinks/Week Comments Not Currently 3 (1 standard drink = 0.6 oz pur e alcohol) [facility] Utilities Answer Date Recorded In the past 12 months has [facility] [employer], gas, oil, or water [employer] [place] [employer] threatened to shut off services in your [...] How often do you attend chur or catholic services? Never 06/03/2022 Do you belong to any clubs o r organizations such as evangelical groups, unions, fraternal or athletic groups, or [...] Answer Date Recorded PHQ-2 Score 2 08/18/2024 [facility] - Occupational Stress Questionnaire Answer Date [...] your living situation today? I have a [facility] place to live 11/15/2023 Education Answer Date Recorded What is the highest level of school you have completed or the highest degree you have received? 12th grade 06/03/2022 Comments No Sex and Gender Information Value Date Recorded Sex Assigned at Female 09/27/2017 9:28 AM CONTINUOUS DRIER HELPER Legal Sex Female 4:10 PM CONTINUOUS DRIER HELPER Gender Identity Female 09/27/2017 9:28 AM CONTINUOUS DRIER HELPER Sexual Orientation Straight 09/27/2017 9: 28 AM CONTINUOUS DRIER HELPER documented as of this encounter Plan of Treatment Not on file documented as of this encounter Visit Diagnoses Not on filedocumented in this encounter Additional Health Concerns Assessment Noted Time PHQ-9 Depression Total Score: 8 08/18/19 25 1:59 PM CONTINUOUS DRIER HELPER documented as of this encounter Care Teams Doctor Of Dental Medicine Relationship Specialty Start Date End Date Brian Markham P.A.-C. [address] [place] [phone] PCP - General 01/04/17 documented as of this encounter
--- OUTSIDE RECORDS SUMMARY | 2024-11-04 09:14 | XMS_ITS | Clinical Summary ---
Author Organization [facility] Address [address] [place] [address] Care Team Providers Care Bmet Name Role Phone Brian Markham P.A.-C. Primary Care Provider Source Comments Patient records contain information from all sites at [facility]. For routine questions regarding patient records, call [phone] during business hours, M-F 8:00 AM - 5:00 PM Central Time. Record requests for emergency care only can be directed to [phone] at any time.[facility] Allergies [...] Communication Department of Obstetrics and Gynecology in [address] [phone] Ghazala Bender M.D., Ph.D. 08/18/2024 2:30 PM CHIEF PROJECTIONIST Office Visit Department of Family Medicine, [facility], in [place] [address] [place] [address] Brian Markham, P.A.-C. Anxiety (Primary Dx); Persistent [...] drink = 0.6 oz pur e alcohol) [facility] [employer]ities Answer Date Recorded In the past 12 months has [employer], [facility], oil, or water [employer] threatened to shut off services in your [...] often do you attend chur ch or episcopalian services? Never 06/03/2022 Do you belong to any clubs o r organizations such as jewish groups, unions, fraternal or athletic groups, or [...] Answer Date Recorded PHQ-2 Score 2 08/18/2024 [facility] - [...] your living situation today? I have a [facility] place to live 11/15/2023 Education Answer Date Recorded What is the highest level of school you have completed or the highest degree you have received? 12th grade 06/03/2022 Comments No Sex and Gender Information Value Date Recorded Sex Assigned at Female 09/27/2017 9:28 AM CHIEF PROJECTIONIST Legal Sex Female 4:10 PM CHIEF PROJECTIONIST Gender Identity Female 09/27/2017 9:28 AM CHIEF PROJECTIONIST Sexual Orientation Straight 09/27/2017 9: 28 AM CHIEF PROJECTIONIST Last Filed Vital Signs Vital Sign Reading Time Taken Comments Blood Pressure 116/74 08/18/2024 2:[address] rage Pulse 74 08/18/2024 2:02 PM CHIEF PROJECTIONIST Temperature 36.2 C (97.2 F) 08/18/2024 2:02 PM CHIEF PROJECTIONIST Respiratory Rate 16 08/18/2024 2:02 PM CHIEF PROJECTIONIST Oxygen Saturation 100% 04/27/2024 8:30 PM CDT Inhaled Oxygen Concentration - - Weight 79.3 kg (174 lb 13.2 oz) 08/18/2024 2:02 PM CHIEF PROJECTIONIST Height 157.1 cm (5' 1.85) 08/18/2024 2:02 PM CS T Body Mass Index 32.13 08/18/2024 2:02 PM CHIEF PROJECTIONIST Plan of Treatment Health Maintenance Due Date [...] this topic Medical Devices Explanted Type Area Shop Superintendent Device Identifier Shelf Expiration Date Model / Serial / Lot Subdermal Contraceptive Implant-05/11/20 21 Implanted:Qty: 1 on 05/11/2021 by Ron Myers Jr., M.D. Explanted:Qty: 1 on 04/07/2022 by Deedee Arias, DEBORAH, C.N.P. Subdermal Contraceptive Implant Left: Arm [facility] 10/27/2023 / / [id number] Procedures Procedure Name Priority Date/Time Associated Diagnosis Comments HIV-1/-2 AG AND AB SCREEN, PLASMA Routine 01/23/2024 3:43 PM CDT Screening For Venereal Disease CHLAMYDIA/GONORRHOE AE AMPLIFIED RNA Routine 01/23/2024 3:18 PM CDT Screening For Venereal Disease THINPREP SCREEN HPV REFLEX Routine 01/23/2024 3:18 PM CDT Pap Smear Examination HCV AB SCRN , S Routine 07/14/2022 9:06 AM CHIEF PROJECTIONIST Encounter For Supervision Of Other Normal Unspecified [...] MICROBIOLOGY - BLO OD ORDERABLES Final Result [facility] [address] [place] [id number], [facility] [place] [address] [place] [address] * ThinPrep Screen HPV Reflex (01/23/2024 3:18 [...] ORDERAB LES Final Result Performing Organization Address City/[facility]/ZIP Co de Phone Number [facility] [address] [place] [address], [place] [facility] [address] [place] [address] * Chlamydia / Gonorrhoeae Amplified RNA (01/23/2024 [...] CDT 01/25/2024 2:11 PM CDT us Brian Markham P.A.-C. LAB MICROBIOLOGY - GEN ERAL ORDERABLES Final Result Performing Organization Address City/[facility]/ZIP Co de Phone Number [facility] [address] [place] [phone] [place] [address] [place], [place] [address] [place] [address] * Hepatitis C Virus Antibody Screen (07/14/2022 9:06 AM CHIEF PROJECTIONIST) HCV Ab Scrn , S Negative Negative 07/15/2022 10:31 AM CHIEF PROJECTIONIST [facility] Comment:Rncpgw-xh-ylbmfm rat io is <1.00. Blood (Blood, Venous) 07/14/2022 9:06 AM CHIEF PROJECTIONIST 07/15/2022 7:39 AM CHIEF PROJECTIONIST Arnold Mclaughlin M.D. LAB MICROBIOLOGY - BLOOD ORDE BRITTANI Final Result [facility] [address] [place] [address] [facility] [address] [place] [phone] from Last 3 Months or Most Recently Relevant to Health Maintenance Insurance [facility] Care Teams Bmet Relationship Specialty Start Date End Date Brian Markham P.A.-C. [address] [place] [phone] PCP - General 01/04/17
[2024-11-04 09:30] LABS: Basophils Absolute Auto 0.01 K/uL (0.00-0.30); Basophils Percent Auto 0.1 % (0.0-3.0); Eosinophils Absolute Auto 0.09 K/uL (0.00-0.50); Eosinophils Percent Auto 1.1 % (0.0-7.0); Hematocrit 38.3 % (33.0-51.0); Hemoglobin* 13.1 gm/dL (12.0-16.0); Immature Granulocytes Abs Auto 0.02 K/uL (0.00-0.30); Immature Granulocytes Pct Auto 0.2 %; Lymphocytes Absolute Auto 1.72 K/uL (0.90-2.90); Lymphocytes Percent Auto 20.6 % (20-44); Mean Corpuscular HGB Conc 34 gm/dL (32-36); Mean Corpuscular Hemoglobin 30 pg (26-34); Mean Corpuscular Volume 87 fL (80-100); Monocytes Percent Auto 5.9 % (0.0-11.0); Neutrophils Percent Auto 72.1 % (42.0-72.0); Platelet Count* 284 K/uL (140-440); RDW Coefficient of Variation % 12.8 % (11.5-15.5); Red Blood Count 4.38 m/uL (4.00-5.20); White Blood Count* 8.34 K/uL (4.50-11.00)
[2024-11-04 09:38] LABS: Albumin* 4.3 g/dL (3.3-5.0); Chloride* 107 mmol/L (96-114)
[2024-11-04 09:39] LABS: Potassium* 3.8 mmol/L (3.6-5.1); Sodium* 135 mmol/L (135-149)
[2024-11-04 09:41] LABS: Alanine Aminotransferase* 12 U/L (4-35); Alkaline Phosphatase* 36 U/L (40-150); Anion Gap 9 mEq/L (7-15); Aspartate Amino Transferase* 20 U/L (12-35); Bilirubin Total* 0.6 mg/dL (0.1-1.5); Blood Urea Nitrogen* 4 mg/dL (5-24); Carbon Dioxide* 19 mmol/L (20-32); Creatinine* 0.5 mg/dL (0.5-1.5); Estimated Glomerular Filt Rate 131 ml/min; Total Protein* 7.1 g/dL (6.0-8.3)
[2024-11-04 09:42] LABS: Calcium* 9.3 mg/dL (8.4-10.6); Glucose* 88 mg/dL (60-115); Lipase* 41 U/L (23-300)
[2024-11-04 09:48] LABS: PCR FLU A Negative PCR FLU A (Negative); PCR FLU B Negative PCR FLU B (Negative); PCR RSV Negative PCR RSV (Negative); SARS PCR* Negative SARS-CoV-2 (Negative)
[2024-11-04 09:52] LABS: Slide Review Reflex No
[2024-11-04 10:27] LABS: Appearance Urine Clear (Clear); Bilirubin Urine Negative (Negative); Blood Urine Trace-intact (Negative); Color Urine Yellow (Yellow); Glucose Urine Negative (Negative); Ketones Urine Negative (Negative); Leukocyte Esterase Urine Negative (Negative); Nitrite Urine Negative (Negative); Protein Urine Negative (Negative); Specific Gravity Urine 1.015 (1.000-1.030); Urobilinogen Urine 0.2 (0.2-1.0)
[2024-11-04 10:36] LABS: Bacteria Urine Few; RBC Urine 0-2 (0-2); Squamous Epithelial Cell Urine Few (None-Few); WBC Urine 0-2 (0-5)
== END 2024-11-04 11:09 | disposition home or self-care (01) ==
PROVIDERS: Emergency Provider Student in an Organized Health Care Education/Training Program; PCP Physician Assistant
DX: O21.0 Mild hyperemesis gravidarum (principal); Z3A.11 11 weeks gestation of pregnancy
CPT/HCPCS: 36415; 80053; 81001; 83690; 83735; 85025; 87086; 87631; 96361; 96374; 99284; J2405; J7120

== ENCOUNTER 2024-11-11 13:18 | Outpatient (CLI) | payer BC, SELFPAY | END 2024-11-11 13:19 | disposition home or self-care (01) | PROVIDERS: PCP Physician Assistant; Visit Provider Advanced Practice Midwife | DX: Z34.81 Encounter for supervision of other normal pregnancy, first trimester (principal) | CPT/HCPCS: 82570; 84156 ==

== ENCOUNTER 2024-11-15 09:28 | Outpatient (CLI) | payer BC, SELFPAY | END 2024-11-15 09:29 | disposition home or self-care (01) | LOC: NFLDREF 11-18 06:41 | PROVIDERS: PCP Physician Assistant; Referring Provider Physician Assistant; Visit Provider Advanced Practice Midwife | DX: O21.0 Mild hyperemesis gravidarum (principal); Z3A.12 12 weeks gestation of pregnancy | CPT/HCPCS: 82570; 84156 ==

== ENCOUNTER 2024-12-31 08:55 | Outpatient (CLI) | payer BC, SELFPAY ==
--- NOTE | 2024-12-31 09:15 | CRLHL7_ITS ---
For Patients: As a result of the 21st Century Cures Act, medical imaging exams and procedure reports are released immediately into your electronic medical record. You may view this report before your referring provider. If you have questions, please contact your health care provider. OB ULTRASOUND SURVEY, 12/31/2024 LMP: 08/19/2024. KUSHAL by LMP: 05/26/2025. GA: 19 w, 1 d. INDICATION: anatomy scan. TECHNIQUE: Real time serna scale imaging of the fetus was performed. Evaluate anatomy. Transabdominal. position: Vertex. Cervix: Visualized. Technique: Transabdominal. Length of closed cervix: 4.2 cm. Placenta/cord: Anterior. Technique: Transabdominal. Placenta tip to internal OS: 4.9 cm. Umbilical Cord: 3-vessel cord. Placenta insertion: Central. Amniotic Fluid: 3.3 cm SDP (greater than/equal to: 2- less than 8 cm). SURVEY: Observed Structures. Calvarium/Spine: Cerebellum: 1.9 cm, 19 w 5 d. Cisterna Magna: 4.1 mm. Nuchal Fold: 4.2 mm. Lateral Ventricle: 6.4 mm. CSP: Yes. Midline Falx: Yes. Choroid Plexus: Yes. Spine: Yes. Abdomen: Stomach: Yes. Abd Cord Insertion: Yes. Urinary Bladder: Yes. Kidneys: Yes. Diaphragm: Yes. Face: Nose/lips: Yes. Orbital view: Yes. Profile: Yes. Limbs: Upper Extremities: Yes. Lower Extremities: Yes. Hands: Yes. Feet: Yes. Vascular: 4-Chamber Heart: Yes. LVOT: Yes. RVOT: Yes. 3VV: Yes. 3VTV: Yes. BPD: 4.2 cm. 18 w, 5 d, 34 percent. HC: 16.3 cm. 19 w, 1 d, 40 percent. AC: 14.5 cm. 19 w, 5 d, 67 percent. FL: 3.1 cm. 19 w, 5 d, 65 percent. FL/AC ratio: 21.65 percent. HC/AC ratio: 1.13. heart rate: 161 bpm. age by this US: 19 w, 3 d. KUSHAL by this US: 05/24/2025. EFW: 305.04 g. Weight: 0 lbs, 11 oz. Percentile by KUSHAL: 76 percent. IMPRESSION: Concordance of clinical and sonographic dating. Normal anatomic survey. Praneeth Miller M.D. Diagnostic Radiologist [email or web address] RAMANA/gus JR/Dictated by: Praneeth Miller MD @ 12/31/2024 10:53:00 AM (Electronically Signed)
== END 2024-12-31 08:56 | disposition home or self-care (01) ==
LOC: US 08:55
PROVIDERS: PCP Physician Assistant; Visit Provider Midwife
DX: Z36.2 Encounter for other antenatal screening follow-up (principal); Z3A.19 19 weeks gestation of pregnancy
CPT/HCPCS: 76805

== ENCOUNTER 2025-02-11 12:43 | Outpatient (CLI) | payer BC, SELFPAY ==
--- OUTSIDE RECORDS SUMMARY | 2025-02-11 12:25 | XMS_ITS | Clinical Summary ---
Author Organization [facility] Address [address] [place] [address] Care Team Providers Care Mercantile Agent Name Role Phone Brian Markham P.A.-C. Primary Care Provider Source Comments Patient records contain information from all sites at [facility]. For routine questions regarding patient records, call [phone] during business hours, M-F 8:00 AM - 5:00 PM Central Time. Record requests for emergency care only can be directed to [phone] at any time.[facility] Allergies Active Allergy Reactions Criticality Noted Date [...] 08/22/2023 Depression Major Recurrent Moderate 10/08/2017 08/22/2023 Immunizations Immunization Administration Dates Next Due 9vHPV [...] drink = 0.6 oz pur e alcohol) [facility] Utilities Answer Date Recorded In the past 12 months has [employer], gas, oil, or water [employer] threatened to shut off services in your [...] by your partner or ex-partner? No 06/03/2022 Hunger Vital Sign Answer Date Recorded Within [...] PHQ-9 Total Score (max 27) 8 08/18 Housing Stability Answer Date Recorded What is your living situation today? I have a [facility] place to live 11/15/2023 Education Answer Date Recorded What is the highest level of school you have completed or the highest degree you have received? 12th grade 06/03/2022 Comments No Sex and Gender Information Value Date Recorded Sex Assigned at Female 09/27/2017 9:28 AM ADMIN PROG COORD Legal Sex Female 4:10 PM ADMIN PROG COORD Gender Identity Female 09/27/2017 9:28 AM ADMIN PROG COORD Sexual Orientation Straight 09/27/2017 9: 28 AM ADMIN PROG COORD Last Filed Vital Signs Vital Sign Reading Time Taken Comments Blood Pressure 116/74 08/18/2024 2:[address] CO[address] rage Pulse 74 08/18/2024 2:02 PM ADMIN PROG COORD Temperature 36.2 C (97.2 F) 08/18/2024 2:02 PM ADMIN PROG COORD Respiratory Rate 16 08/18/2024 2:02 PM ADMIN PROG COORD Oxygen Saturation 100% 04/27/2024 8:30 PM CDT Inhaled Oxygen Concentration - - Weight 79.3 kg (174 lb 13.2 oz) 08/18/2024 2:02 PM ADMIN PROG COORD Height 157.1 cm (5' 1.85) 08/18/2024 2:02 PM CS T Body Mass Index 32.13 08/18/2024 2:02 PM ADMIN PROG COORD Plan of Treatment Health Maintenance Due Date Last Done Comments COVID-19 Vaccine ( season) 2024 08/05/2021, 07/11/2021 Tobacco Cessation counseling 08/22/2024 08/22/2023 Depression Monitoring (PHQ-9) 12/16/2024 08/18/2024 Influenza Vaccine (#1) 2025 , 06/14/2020, 05/21/2019, Additional history exists Cervical/Vaginal Cancer Screening 01/22/2027 01/23/2024, 06/14/2020, 06/14/2020, Additional history exists DTaP,Tdap,and Td Vaccines (5 - Td or Tdap) 12/06/2032 12/06/2022, 11/21/2021, 05/12/2016, Additional history exists HPV Vaccines Completed 06/14/2020, 07/24, 05/29/2018 Hepatitis C Screening Completed 07/14/2022 Chlamydia and Gonorrhea Screening Discontinued 01/23/2024, 05/29/2018, 06/08/2015, Additional history exists HIV Screening Completed 01/23/2024, 06/23, 11/30/2015, Additional history exists Hepatitis B Vaccines Completed 02/29/2024, 01/23/20 Depression Monitoring (PHQ-9 for quality tracking) Completed 08/18/2024, 08/18/2024 IPV Vaccines Aged Out No longer eligi ble based on patient's age to complete this topic Pneumococcal vaccine (0-49 years) Aged Out No longer eligible based on patient's age to complete this topic Medical Devices Explanted Type Area Bread Wrapper Operator Device Identifier Shelf Expiration Date Model / Serial / Lot Subdermal Contraceptive Implant-05/11/20 21 Implanted:Qty: 1 on 05/11/2021 by Ron Myers Jr., M.D. Explanted:Qty: 1 on 04/07/2022 by Deedee Arias APRN, C.N.P. Subdermal Contraceptive Implant Left: Arm [facility] 10/27/2023 / / [id number] Procedures Procedure Name Priority Date/Time Associated Diagnosis Comments HIV-1/-2 AG AND AB SCREEN, PLASMA Routine 01/23/2024 3:43 PM CDT Screening For Venereal Disease CHLAMYDIA/GONORRHOE AE AMPLIFIED RNA Routine 01/23/2024 3:18 PM CDT Screening For Venereal Disease THINPREP SCREEN HPV REFLEX Routine 01/23/2024 3:18 PM CDT Pap Smear Examination HCV AB SCRN , S Routine 07/14/2022 9:06 AM ADMIN PROG COORD Encounter For Supervision Of Other Normal Unspecified [...] 2:34 PM CDT Brian Markham P.A.-C. LAB MICROBIOLOGY - BLO OD ORDERABLES Final Result [facility] [address] [place] [address], [facility] in [place] [phone] * ThinPrep Screen HPV Reflex (01/23/2024 3:18 [...] LAB PAP PATHDX ORDERAB LES Final Result [facility] [address] [place] [address], [place] [facility] [address] [facility] [address] [place] [address] * Chlamydia / Gonorrhoeae Amplified RNA (01/23/2024 [...] ERAL ORDERABLES Final Result Performing Organization Address City/[facility] Co de Phone Number [facility] [address] [place] [address], [place] [facility] [address] [address] * Hepatitis C Virus Antibody Screen (07/14/2022 9:06 AM ADMIN PROG COORD) HCV Ab Scrn , S Negative Negative 07/15/2022 10:31 AM ADMIN PROG COORD [facility] Comment:Uuykoj-ce-cvoyav rat io is <1.00. Blood (Blood, Venous) 07/14/2022 9:06 AM ADMIN PROG COORD 07/15/2022 7:39 AM ADMIN PROG COORD us Arnold Mclaughlin M.D. LAB MICROBIOLOGY - BLOOD ERICK PETER Final Result [facility] [address] [place] [address] [facility] [place] [address] [place] [address] from Last 3 Months or Most Recently Relevant to Health Maintenance Insurance [facility] [place] [address] Care Teams Mercantile Agent Relationship Specialty Start Date End Date Brian Markham P.A.-C. [address] [place] [phone] PCP - General 01/04/17
[2025-02-11 12:27] VITALS: BP 109/70; PULSE 91; RESP 18; TEMP 36.5; O2SAT 98; BMI 31.6
[2025-02-11 12:50] VITALS: PULSE 78; O2SAT 97
[2025-02-11 12:52] VITALS: BP 107/67; PULSE 80
[2025-02-11] MEDS: ACETAMINOPHEN 500 MG TABLET 1000 MG PO (14:47)
--- NOTE | 2025-02-11 16:13 | PC.OBNST ---
NST Note NST Note Start: 02/11/25 14:41 Freq: ONCE Status: Active Protocol: Document 02/11/25 16:11 ABP (Rec: 02/11/25 16:12 ABP [id number]) NST Note 6 Para (# of births) 2 EDC 05/26/25 Gestational Age In 25 Weeks & 1 Days Weeks & Days Patient Presented Observation after an injury,Pain with Complaint(s) of If Observation after Resident at work fell into patient, hitting her belly an injury, describe and causing fall If Pain, describe Pelvic pain location Reactive Yes Appropriate for Yes Gestational Age ALONDRA Reddy, ALONDRA Date 02/11/25 Reactive Yes Appropriate for Yes Gestational Age ALONDRA Solis RN Date 02/11/25 OB NST charge Yes Complete NST Note Yes via Write Note The provider's electronic signature indicates the NST is reactive/appropriate for gestational age. *Note to provider: If an addendum is required, open the patient's chart and click on the note under the Nurse/Allied Health tab.
== END 2025-02-11 15:50 | disposition home or self-care (01) ==
LOC: OB OUT 12:44 → OB 12:45
PROVIDERS: PCP Physician Assistant; Visit Provider Obstetrics & Gynecology
DX: O26.892 Other specified pregnancy related conditions, second trimester (principal); S29.9XXA Unspecified injury of thorax, initial encounter; Z3A.25 25 weeks gestation of pregnancy; W19.XXXA Unspecified fall, initial encounter; Y93.9 Activity, unspecified; Y92.009 Unspecified place in unspecified non-institutional (private) residence as the place of occurrence of the external cause
CPT/HCPCS: 59025; G0463; A9270

== ENCOUNTER 2025-02-24 13:35 | Outpatient (CLI) | payer BC, SELFPAY | END 2025-02-24 13:36 | disposition home or self-care (01) | LOC: NFLDREF 03-02 01:45 | PROVIDERS: PCP Physician Assistant; Referring Provider Physician Assistant; Visit Provider Obstetrics & Gynecology | DX: Z34.93 Encounter for supervision of normal pregnancy, unspecified, third trimester (principal); Z3A.28 28 weeks gestation of pregnancy | CPT/HCPCS: 86592 ==

== ENCOUNTER 2025-03-02 21:20 | Outpatient (CLI) | payer BC, SELFPAY ==
[2025-03-02 21:32] VITALS: BP 109/59; PULSE 77; RESP 18; TEMP 37
[2025-03-02 21:48] LABS: Appearance Urine Clear (Clear)
--- NOTE | 2025-03-02 22:56 | PC.OBNST ---
NST Note NST Note Start: 03/02/25 21:23 Freq: ONCE Status: Active Protocol: Document 03/02/25 22:51 JOCELIN (Rec: 03/02/25 22:52 JOCELIN [id number]) NST Note 6 Para (# of births) 2 EDC 05/26/25 Gestational Age In 27 Weeks & 6 Days Weeks & Days Patient Presented Vaginal bleeding with Complaint(s) of Reactive Yes Appropriate for Yes Gestational Age ALONDRA Garcia RN Date 03/02/25 Reactive Yes Appropriate for Yes Gestational Age ALONDRA Morales RN Date 03/02/25 OB NST charge Yes Complete NST Note Yes via Write Note The provider's electronic signature indicates the NST is reactive/appropriate for gestational age. *Note to provider: If an addendum is required, open the patient's chart and click on the note under the Nurse/Allied Health tab.
[2025-03-02 23:09] LABS: Bacterial Vaginosis* Negative (Negative); Candida glab/krus NOT DETECTED (No Detected)
== END 2025-03-02 22:56 | disposition home or self-care (01) ==
LOC: OB OUT 21:20 → OB 21:21
PROVIDERS: PCP Physician Assistant; Visit Provider Obstetrics & Gynecology
DX: O46.92 Antepartum hemorrhage, unspecified, second trimester (principal); Z3A.27 27 weeks gestation of pregnancy
CPT/HCPCS: 59025; 81001; 81003; 81513; 87086; 87481; 87661; G0463

== ENCOUNTER 2025-03-06 08:12 | Outpatient (CLI) | payer BC, SELFPAY | END 2025-03-06 08:13 | disposition home or self-care (01) | LOC: NFLDREF 03-10 17:43 | PROVIDERS: PCP Physician Assistant; Referring Provider Physician Assistant; Visit Provider Obstetrics & Gynecology | DX: R73.09 Other abnormal glucose (principal) | CPT/HCPCS: 82951; 82952 ==

== ENCOUNTER 2025-04-03 09:30 | Outpatient (CLI) | payer BC, SELFPAY ==
--- NOTE | 2025-04-03 10:15 | CRLHL7_ITS ---
For Patients: As a result of the Century Cures Act, medical imaging exams and procedure reports are released immediately into your electronic medical record. You may view this report before your referring provider. If you have questions, please contact your health care provider. OB ULTRASOUND FOLLOW-UP/LIMITED, 04/03/2025 CLINICAL HISTORY: Gestational diabetes. COMPARISON: 12/31/2024. TECHNIQUE: Real time serna scale imaging of the fetus was performed. Transabdominal imaging performed. FINDINGS: KUSHLA by LMP/US: 05/26/2025. GA: 32 weeks 3 days. Gestation: Single. Cervix: Not visualized. Positioning: Vertex. Amniotic Fluid: 3.8 cm SDP. Placenta: Technique: TA. Placenta Position: Anterior. Dopplers: Heart Rate: 161 bpm. BIOMETRY BPD: 8.3 cm, 33 weeks 1 day. 65% HC: 31.1 cm, 34 weeks 5 days. 74% AC: 27.8 cm, 31 weeks 6 days. 32% FL: 6.2 cm, 32 weeks 2 days. 32% FL/AC Ratio: 22.37% HC/AC Ratio: 1.12. EFW: 1958 grams, 4 lb 5 oz. Age by this US: 33 weeks 0 days. KUSHAL by this US: 05/22/2025. Percentile by KUSHAL: 37% IMPRESSION: 1. Sonographic gestational age 33 weeks 0 days and sonographic due date 05/22/2025. Sonographic age is 4 days ahead of the clinical age. 2. Estimated weight 37th percentile. Abdominal circumference 32nd percentile. Praneeth Miller M.D. Diagnostic Radiologist [employer] [email or web address] Transcribed: 2:44 pm DW/Dictated by: Praneeth Miller MD @ 04/03/2025 2:01:00 PM (Electronically Signed)
== END 2025-04-03 09:31 | disposition home or self-care (01) ==
LOC: US 09:30
PROVIDERS: PCP Physician Assistant; Visit Provider Obstetrics & Gynecology
DX: O24.419 Gestational diabetes mellitus in pregnancy, unspecified control (principal); Z3A.33 33 weeks gestation of pregnancy
CPT/HCPCS: 76816

== ENCOUNTER 2025-04-24 12:14 | Outpatient (CLI) | payer BC, SELFPAY ==
--- NOTE | 2025-04-24 12:15 | CRLHL7_ITS ---
For Patients: As a result of the Cures Act, medical imaging exams and procedure reports are released immediately into your electronic medical record. You may view this report before your referring provider. If you have questions, please contact your health care provider. OBSTETRICAL ULTRASOUND ??? BIOPHYSICAL PROFILE INDICATION: Gestational diabetes mellitus. CLINICAL HISTORY: LMP: 08/19/2024 KUSHAL by LMP: 05/26/2025 Gestational Age: 35 weeks 3 days COMPARISON: 04/03/2025, 12/31/2024. TECHNIQUE: Real-time serna-scale transabdominal imaging of the fetus was performed. FINDINGS: Fetus: Single Cervix: Not visualized positioning: Vertex Amniotic Fluid: 6.0 cm SDP BIOPHYSICAL PROFILE: Gross body movements: 2 tone: 2 Respiratory activity: 2 Amniotic fluid SDP: 2 Total score: 8 Placenta technique: Transabdominal Placenta position: Anterior heart rate: 161 bpm IMPRESSION: Normal biophysical profile score of 8/8. PRANEETH SANTOYO M.D. Diagnostic Radiologist [employer] [email or web address] Transcribed: 5:[address]/Dictated by: Praneeth Santoyo MD @ 04/24/2025 4:03:00 PM (Electronically Signed)
== END 2025-04-24 12:15 | disposition home or self-care (01) ==
LOC: US 12:15
PROVIDERS: PCP Physician Assistant; Visit Provider Obstetrics & Gynecology
DX: O24.419 Gestational diabetes mellitus in pregnancy, unspecified control (principal); Z3A.35 35 weeks gestation of pregnancy
CPT/HCPCS: 76819

== ENCOUNTER 2025-04-28 11:57 | Outpatient (CLI) | payer BC, SELFPAY ==
--- NOTE | 2025-04-28 12:15 | CRLHL7_ITS ---
For Patients: As a result of the Cures Act, medical imaging exams and procedure reports are released immediately into your electronic medical record. You may view this report before your referring provider. If you have questions, please contact your health care provider. OB ULTRASOUND KUSHAL by LMP: 05/26/2025. GA: 36 w, 0 d. Single. Comparison: 04/24/2025, 04/03/2025, 12/31/2024. INDICATION: GDM. TECHNIQUE: Real time grayscale imaging of the fetus was performed. Transabdominal. CERVIX: Not visualized. POSITIONING: Vertex. AMNIOTIC FLUID: 3.7 cm. SDP (N: greater than 2 x 1 cm) BIOPHYSICAL PROFILE: 2: Gross body movements 2: tone 2: Respiratory activity 2: Amniotic fluid SDP (N: greater than 2 x 1 cm) 8/8: Total score PLACENTA: Technique: Transabdominal. PLACENTA POSITION: Anterior. DOPPLER: heart rate: 145 bpm. BIOMETRY: BPD: 8.8 cm. 35 w, 3 d, 42%. HC: 33.2 cm. 37 w, 6 d, 67%. AC: 32.6 cm. 36 w, 4 d, 74%. FL: 7.0 cm. 36 w, 0 d, 45%. FL/AC ratio: 21.54%. HC/AC ratio: 1.02. EFW: 2930g. Weight: 6 lbs., 7 oz. age by this US: 36 w, 3 d. KUSHAL by this US: 05/23/2025. Percentile by KUSHAL: 63%. IMPRESSION: 1. Normal biophysical profile score 8/8. 2. Sonographic gestational age 36 weeks 3 days and sonographic due date 05/23/2025. Good correlation with dates. Normal interval growth. 3. Estimated weight 63rd percentile. Abdominal circumference 74th percentile. Praneeth Miller M.D. Diagnostic Radiologist [email or web address] RAMANA/rinku dobbs/Dictated by: Praneeth Miller MD @ 04/28/2025 4:02:00 PM (Electronically Signed)
== END 2025-04-28 11:58 | disposition home or self-care (01) ==
PROVIDERS: PCP Physician Assistant; Visit Provider Obstetrics & Gynecology
DX: O24.419 Gestational diabetes mellitus in pregnancy, unspecified control (principal); Z3A.36 36 weeks gestation of pregnancy
CPT/HCPCS: 76816; 76819; 87081; 87653

== ENCOUNTER 2025-04-28 12:45 | Outpatient (CLI) | payer BC, SELFPAY | END 2025-04-28 12:46 | disposition home or self-care (01) | LOC: NFLDREF 04-30 17:47 | PROVIDERS: PCP Physician Assistant; Referring Provider Physician Assistant; Visit Provider Obstetrics & Gynecology | DX: Z34.83 Encounter for supervision of other normal pregnancy, third trimester (principal); Z3A.36 36 weeks gestation of pregnancy | CPT/HCPCS: 87081; 87653 ==

== ENCOUNTER 2025-05-08 10:57 | Outpatient (CLI) | payer BC, SELFPAY ==
--- NOTE | 2025-05-08 11:30 | CRLHL7_ITS ---
For Patients: As a result of the Century Cures Act, medical imaging exams and procedure reports are released immediately into your electronic medical record. You may view this report before your referring provider. If you have questions, please contact your health care provider. INDICATION: Gestational diabetes. TECHNIQUE: Ultrasound OB pelvis transabdominal. Real-time serna-scale imaging of the fetus was performed without stress testing. COMPARISON: 04/28/2025. FINDINGS: heart rate: Regular, 138 bpm. position: Cephalic. Placenta: Anterior. Amniotic fluid volume single deepest pocket 3.4 cm, 2/2. motion 0/2. tone 2/2. breathing movements 2/2. IMPRESSION: 1. Live intrauterine in vertex presentation with heart rate of 138 beats per minute. 6/8 BPP. This is equivocal. This was communicated to the patient`s nurse at time of examination. Dictated by Balaji Colmenares MD @ 05/08/2025 11:59:01 AM (Electronically Signed)
== END 2025-05-08 10:58 | disposition home or self-care (01) ==
LOC: US 10:58
PROVIDERS: PCP Physician Assistant; Visit Provider Obstetrics & Gynecology
DX: O24.419 Gestational diabetes mellitus in pregnancy, unspecified control (principal)
CPT/HCPCS: 76819

== ENCOUNTER 2025-05-15 11:58 | Outpatient (CLI) | payer BC, SELFPAY ==
--- NOTE | 2025-05-15 12:15 | CRLHL7_ITS ---
For Patients: As a result of the Cures Act, medical imaging exams and procedure reports are released immediately into your electronic medical record. You may view this report before your referring provider. If you have questions, please contact your health care provider. OBSTETRICAL ULTRASOUND ??? BIOPHYSICAL PROFILE INDICATION: GDMA2 CLINICAL HISTORY: KUSHAL by LMP: 05/26/2025 Gestational Age: 38 weeks 3 days COMPARISON: 05/08/2025, 04/28/2025, 04/24/2025. TECHNIQUE: Real-time serna-scale transabdominal imaging of the fetus was performed. FINDINGS: Fetus: Single Cervix: Not visualized positioning: Vertex Amniotic Fluid: 3.5 cm SDP BIOPHYSICAL PROFILE: Gross body movements: 2 tone: 2 Respiratory activity: 2 Amniotic fluid SDP: 2 Total score: 8 Placenta technique: Transabdominal Placenta position: Anterior heart rate: 150 bpm IMPRESSION: Normal biophysical profile score of 8/8. PRANEETH SANTOYO M.D. Diagnostic Radiologist [email or web address] Transcribed: 2:[address]/Dictated by: Praneeth Santoyo MD @ 05/15/2025 12:35:00 PM (Electronically Signed)
== END 2025-05-15 11:59 | disposition home or self-care (01) ==
LOC: US 11:59
PROVIDERS: PCP Physician Assistant; Visit Provider Obstetrics & Gynecology
DX: O24.419 Gestational diabetes mellitus in pregnancy, unspecified control (principal); Z3A.38 38 weeks gestation of pregnancy
CPT/HCPCS: 76819

== ENCOUNTER 2025-05-18 18:03 | Inpatient (IN) | payer BC, SELFPAY ==
[2025-05-18 18:13] VITALS: BP 113/74; PULSE 77
[2025-05-18 18:14] VITALS: PULSE 80; RESP 16; TEMP 36.9; O2SAT 98
[2025-05-18 18:24] VITALS: BMI 32.0
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
[2025-05-18 20:47] VITALS: BP 129/79; PULSE 58
[2025-05-18 20:50] LABS: Hematocrit* 32.2 % (33.0-51.0); Hemoglobin* 10.6 gm/dL (12.0-16.0); Mean Corpuscular HGB Conc 33 gm/dL (32-36); Mean Corpuscular Hemoglobin 27 pg (26-34); Mean Corpuscular Volume 82 fL (80-100); RDW Coefficient of Variation % 14.5 % (11.5-15.5); Red Blood Count* 3.92 m/uL (4.00-5.20); White Blood Count* 7.79 K/uL (4.50-11.00)
[2025-05-18 20:54] LABS: Slide Review Reflex No
[2025-05-18] MEDS: INSULIN NPH 100 UNIT/ML SUBCUT (21:49)
[2025-05-19] VITALS (52 sets, daily range): BP systolic 99–139; BP diastolic 55–87; PULSE 63–90; RESP 16; TEMP 36.5–37.4; O2SAT 82–100
[2025-05-19] MEDS: LACTATED RINGERS 1000 ML 1,000 ML 125 ML IV ×2 (00:38→08:37)
[2025-05-19] MEDS: OXYTOCIN 30 unit/500 ML in NS 30 UNIT/500 ML BAG IVPB (00:38)
[2025-05-19] MEDS: AMPICILLIN 2 GM in 0.9 % SODIUM CHLORIDE Mini-bag 100 ML IVPB (06:51)
[2025-05-19] MEDS: AMPICILLIN 1 GM in 0.9 % SODIUM CHLORIDE Mini-bag 100 ML IVPB ×2 (10:53→15:08)
--- NOTE | 2025-05-19 11:10 | PM.OBPNL ---
Subjective Date Seen: 05/19/25 Narrative: Monica is a 30-year-old woman at 39 weeks, 0 days gestation here for induction of labor for GDM A2. Overnight, she had Cook catheter for cervical ripening. She is currently being administered oxytocin infusion for induction of labor. She was GBS positive, and is receiving ampicillin. Objective Exam: General: No acute distress, sitting on birthing ball Cervix: 5 cm, 75%,-1 station, anterior, soft. AROM for clear fluid. Vital Signs: Last Vital Signs Temp 98.2 F 05/19/25 08:05 Pulse 83 05/19/25 09:54 Resp 16 05/19/25 06:23 BP 122/63 05/19/25 09:54 Pulse Ox 98 05/18/25 18:14 Glucose was 141 at 11:17 a.m. Comments: tracing: Baseline 140, accelerations present, no decelerations, moderate variability Contractions on toco are quite frequent but of low amplitude. Contractions Contraction pattern: Irregular Pitocin Rate (mU/min): 12 Assessment Assessment: early labor Amniotic Membrane Status: AROM Status: Category l Tracing Comments: Category 1 GBS positive, on ampicillin Labor Progress: Cervix now quite favorable Maternal Status: GDM A2 Received NPH insulin at half her usual dose last night Most recent blood sugar 141, slightly elevated Plan Plan: Continue Pitocin augmentation. Continuous monitoring. Ampicillin Q4H Continue sliding scale insulin with correction for values greater than 120. Received 2 u for last sugar.
[2025-05-19] MEDS: INSULIN ASPART 100 UNIT/ML SUBCUT (11:17)
[2025-05-19] MEDS: ROPIVACAINE 0.2% 100 ml 100 ML 12 MG EPIDURAL (13:53)
[2025-05-19] MEDS: LIDOCAINE 2% (PF) 5 ML VIAL EPIDURAL (13:57)
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
[2025-05-19] MEDS: TRANEXAMIC ACID 100 MG/ML INJ 1000 MG IV (15:57)
--- NOTE | 2025-05-19 16:30 | W.PM.VAGDEL1 ---
Procedure Procedure Done: [facility] Procedure Details: The patient is a 30 year-old G 6 P 2 woman admitted on 05/18/2025 at 38 Weeks, 6 Days gestation for cervical ripening prior to induction of labor for GDM A2.? Cervical exam on admission was 1.5/50/-3, moderate soft, mid position with membranes intact in vertex presentation.? heart rate demonstrated baseline 130 bpm with moderate variability, positive accelerations, no decelerations; a category 1 tracing.? She had Cook catheter for cervical ripening, followed by oxytocin infusion for induction of labor. AROM occurred at 12:17 p.m. on 05/19/2025 with clear fluid. ? Labor Analgesia:? Epidural ? Pitocin:? Yes ? Labor onset:? 12:40 p.m. on 05/19/2025 ? Complete:? 3:46 p.m. ? Pushing:? 3:51 p.m. She only pushed once. ? heart tones during second stage were reassuring. ? At 3:52 p.m. a viable male delivered in vertex DALE presentation over intact perineum via spontaneous vaginal delivery.? was placed on maternal abdomen.? Cord was clamped and cut after a 30-60 second delay.? Nose and mouth were bulb suctioned.? weight pending.? 8 at 1 minute and 9 at 5 minutes.? Shoulder dystocia: No.? Nuchal cord: Yes, reduced prior to delivery of the infant body. ? Placenta delivered spontaneously and complete at 3:52 p.m. with a 3 vessel cord. ? Mother and infant were stable after delivery. ? Lacerations:? Right periurethral, repaired with 3 interrupted sutures of 3-0 Vicryl. ? Blood loss: 150 mL. Blood loss measurement type: QBL Given her history of hemorrhage x 2 she was given 1 g of IV tranexamic acid in addition to oxytocin for prevention of hemorrhage. ? Sponge and needles counts are correct. Events: GDMA2 Intrapartal Events: Labor Induction Delivery augmentation: rupture of membranes and pitocin Delivery monitor: external FHT Route of delivery: Episiotomy description: None Laceration description: Periurethral - 1st Degree Delivery repair: Vicryl Estimated blood loss (mL): 150 Anesthesia type: Epidural
[2025-05-19] MEDS: IBUPROFEN 600 MG TABLET PO (20:32)
[2025-05-19] MEDS: ACETAMINOPHEN 500 MG TABLET 1000 MG PO (23:11)
[2025-05-20 04:44] VITALS: BP 107/67; PULSE 57; RESP 16; TEMP 36.7; O2SAT 98
[2025-05-20 06:33] LABS: Hemoglobin* 9.4 gm/dL (12.0-16.0)
--- NOTE | 2025-05-20 08:48 | PM.OBPNVD1 ---
OB - PN:Subj Subjective Time Seen by Provider: 09:00 Date Seen: 05/20/25 Patient comments OB post-: tolerating diet status: and doing well [place] feeding status: exclusively Narrative: Monica is a 30 year old who was admitted for induction of labor for GDMA2 at 38wk6d and proceeded to have a vaginal? with a 1st degree periurethral laceration that was repaired. The patient feels well overall. She is did her 2hr GTT test this morning and passed! Monica is surprised by intensity of her uterine cramping. She used tylenol and ibuprofen last evening but none since then. She passed a softball size blood clot early this morning. Small, appropriate bleeding since then. She was symptomatic. Fundus firm. She has a history of hemorrhage but doesn't feel at all like she did when that happened but is watching her bleeding closely. Urinary output is adequate and she is voiding without difficulty.? Has a good appetite, is tolerating a general diet, is passing flatus, and has not had a bowel movement. She is ambulating well. She is and reports it is going very well.?THAD Shin OB - PN: Obj Exam Physical Exam: Vital signs: Temp Pulse Resp BP Pulse Ox O2 Del Method 98.1 F 57 L 16 107/67 98 Room Air 05/20/25 04:44 05/20/25 04:44 05/20/25 04:44 05/20/25 04:44 05/20/25 04:44 05/20/25 04:44 Narrative: GENERAL APPEARANCE:? normal affect, alert, no distress MOOD:? appropriate CHEST:? clear to auscultation HEART:? regular rate and rhythm ABDOMEN:? soft, non-tender the uterine fundus is 2 cm below Umbilicus, Midline and is appropriate for the stage of recovery. PERINEUM:? mild edema of the perineum, no excessive erythema, well appoximated EXTREMITIES:? normal and no edema OB - PN: Obj Data Labs Labs: Laboratory Results - last 24 hr 05/20/25 05/20/25 06:18 08:10 Hgb 9.4 L Glucose Tolerance OB - PN: A/P Delivery Assessment and Plan (1) normal course: Status: Acute (2) Lactating mother: Status: Acute (3) GDM, class A2: Status: Acute (4) Supervision of high-risk : Status: Deleted (5) Hx of hemorrhage, currently : Status: Deleted Plan day: 1 Plan: routine care Comments: PP day #1 2hr GTT today- passed Routine care May see as desired Anticipate discharge today or tomorrow Alisa Taylor APRN, CNM, was present for visit and have reviewed and agree with documentation by the Certified Nurse Midwifery Student.? ?
[2025-05-20 10:10] VITALS: BP 115/78; PULSE 83; RESP 16; TEMP 37; O2SAT 98
[2025-05-20] MEDS: IBUPROFEN 600 MG TABLET PO ×2 (10:18→20:00)
[2025-05-20 10:32] LABS: Glucose 2 Hour 150 mg/dl (70-155)
--- NOTE | 2025-05-20 12:58 | PM.ANPOST ---
Post Anesthesia Note Post Anesthesia Note Patient seen: Inpatient Respiratory Status: adequate Cardiovascular Status: adequate Mental Status: baseline Pain: adequate Temp: baseline Anesthetic awareness: no Complications: none Follow care: none
[2025-05-20] MEDS: ACETAMINOPHEN 500 MG TABLET 1000 MG PO (13:34)
[2025-05-20 14:36] VITALS: BP 111/70; PULSE 64; RESP 16; TEMP 36.7; O2SAT 98
[2025-05-20 18:33] VITALS: BP 109/71; PULSE 69; RESP 16; TEMP 36.9; O2SAT 98
--- NOTE | 2025-05-20 20:53 | P.DS_ITS ---
DS: Providers Provider Date Seen: 05/20/25 Date of admission: 05/18/25 18:03 Primary care physician: Brian Markham PA-C Admitting Clinician: Albania Cohen MD Exam Narrative: Exam Narrative: VS reviewed and are within normal limits. Patient was examined by Delfino George CNM today. Please see her note for details. Const: Vital Signs, click to edit/add: Vital Signs - 24 hr 05/19/25 23:14 05/20/25 04:44 05/20/25 10:10 Temperature 99.3 F 98.1 F 98.6 F Pulse Rate [Right Pulse Oximeter] 63 57 L 83 Respiratory Rate 16 16 16 Blood Pressure [Ri ght Arm] 116/71 107/67 115/78 Pulse Oximetry 97 98 98 Oxygen Delivery Me thod Room Air Room Air Room Air 05/20/25 14:36 05/20/25 18:33 Temperature 98.0 F 98.4 F Pulse Rate [Right Pulse Oximeter] 64 69 Respiratory Rate 16 16 Blood Pressure [Ri ght Arm] 111/70 109/71 Pulse Oximetry 98 98 Oxygen Delivery Me thod Room Air Room Air OB - DS: Summary Hospital Course Hospital Course: Patient was not examined or interviewed by me - she was rounded on by Delfino George CNM this morning. Please see her note for details. MD service discharged due to CNM provider being unavailable due to patient cares. At time of rounding this morning, she was uncertain if she wanted to discharge to home as her baby had not yet been cleared for dismissal. Patient had an uncomplicated following induction of labor for GDM A2 at 39 weeks. This morning, she was meeting of all appropriate milestones for dismissal including pain control, limited bleeding, ambulation, tolerating p.o. intake, voiding spontaneously and passing flatus. RN affirms this all remains true. VS reviewed and are within normal limits. She completed 2 hour GTT this morning - fasting 71, 2 hour PP 150mg/dL suggesting no DM2. [place] Infant Gender: Male Time Spent with Patient Time attestation: Total time spent providing and/or coordinating discharge services: Time spent: Less than 30 minutes Discharge Plan Discharge Disposition: Home, Self-Care Date of Admission: 05/18/25 18:03 Primary Care Provider: Roethler,Brian Condition: Stable Anticipated Discharge Date/Time: 05/20/25 20:50 Discharge Medications: Continued acetaminophen [Tylenol Extra Strength] 500 mg tablet 500 mg PO Q6H PRN PNV no.95-ferrous fumarate-FA [] 28 mg iron- 800 mcg tablet 1 tab PO DAILY Discontinued (DME) insulin syringe-needle U-100 [Sure Comfort Insulin Syringe] 1 mL 30 gauge x 5/16 syringe See Rx Instructions .ROUTE .MEDSUPPLY Qty: 100 3RF Rx Instructions: As directed alcohol swabs [Alcohol Pads] Pads, Medicated 2 pad topical DAILY Qty: 100 1RF Humulin N NPH U-100 Insulin 100 unit/mL suspension 10 unit subcut .hs Qty: 30 1RF Rx Instructions: 10 Units at bedtime aspirin 81 mg tablet 81 mg PO QDAY (DME) blood-glucose meter Misc See Rx Instructions .Route Qty: 1 0RF Rx Instructions: As directed (DME) lancets [Accu-Chek Softclix Lancets] Misc See Rx Instructions .Route Qty: 100 2RF Rx Instructions: As directed to check blood glucose four times daily (DME) Blood Glucose Test Strip See Rx Instructions .Route Qty: 100 2RF Rx Instructions: As directed to check blood glucose four times daily Discharge Orders: Discharge Order (Routine); Ordered 05/20/25 Ordered By: Arelis Lopez Patient Education: OB Over the Counter Medication Information, OB Vaginal/Breast Feeding Additional Instructions: Discharge instructions were reviewed with the patient including signs and symptoms of infection and home going medications Pain control: - Ibuprofen 600mg every 6 hours as needed - Tylenol 1000mg every 6 hours as needed Constipation: - OTC colace once or twice daily as needed Nothing vaginally for 6 weeks: no tampons or intercourse Do not drive while taking narcotic pain medication(s) Off Work or School for 8 weeks Symptoms to report to doctor: * Bleeding that saturates more than one pad per hour * Passing clots larger than the size of a golf ball * Pain not relieved by prescribed medication * Fever above 100.4 degrees Fahrenheit * A foul vaginal odor * Difficulty in emotions, mood, and functions * Thoughts of hurting yourself and/or * Painful, reddened area in your breast * Any drainage, redness, or tenderness in your IV/epidural site * Severe headache that doesn't improve after taking medications * Changes in vision, including temporary loss of vision, blurred vision, and/or light sensitivity * Upper abdominal pain (usually under ribs on the right side) * Decrease in urination or painful, frequent urinating * Chest pain * Shortness of breath * Tenderness or pain with redness and/swelling in the calf(s) of your leg Optional 2-week visit: discuss infant feeding concerns, review control options and screen for anxiety/depression. 6-week visit for an annual exam. consultation services are available to all mothers and babies for the first year after delivery.? To make an appointment, please call [phone]. Follow Up Appointments: Brian Markham PA-C [Primary Care Provider, Family Practice] Forms: [employer] Info Instructions
== END 2025-05-20 21:44 | disposition home or self-care (01) | DRG 560 ==
PROVIDERS: Midwife; Obstetrics & Gynecology; Admitting Provider Obstetrics & Gynecology; PCP Physician Assistant; Visit Provider Obstetrics & Gynecology
DX: O24.424 Gestational diabetes mellitus in childbirth, insulin controlled (principal); O99.824 Streptococcus B carrier state complicating childbirth; O70.0 First degree perineal laceration during delivery; O99.344 Other mental disorders complicating childbirth; F32.A Depression, unspecified; F41.9 Anxiety disorder, unspecified; Z91.410 Personal history of adult physical and sexual abuse; Z3A.38 38 weeks gestation of pregnancy; Z37.0 Single live birth
CPT/HCPCS: 01967; 36415; 59200; 82947; 82950; 82962; 85018; 85025; 86592; 86850; 86900; 86901; A9270; C1726; J0290; J2270; J2795; J7120

== ENCOUNTER 2025-06-12 10:59 | Outpatient (CLI) | payer BC, SELFPAY ==
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
== END 2025-06-12 11:00 | disposition home or self-care (01) ==
LOC: OB LAC 11:00
PROVIDERS: PCP Physician Assistant; Visit Provider Obstetrics & Gynecology
DX: Z39.1 Encounter for care and examination of lactating mother (principal)
CPT/HCPCS: G0463